=== PATIENT | male | born 1970 | race Hispanic/Latino ===

== ENCOUNTER 2016-11-10 22:10 | Inpatient (IN) | payer SELFPAY ==
[2016-11-10 22:45] VITALS: BMI 35.0
[2016-11-10] MEDS ORDERED: Vancomycin 1gm in NS 250ml 1 GM/250 ML BAG IVPB STA (23:50)
[2016-11-10] MEDS ORDERED: Piperacillin/Tazobact 3.375 gm 100 ML IVPB STA (23:50)
--- NOTE | 2016-11-10 23:51 | ED PDOC ---
Arrival/HPI - General Chief Complaint: Lower Extremity Problem/Injury Time Seen by Provider: 11/10/16 22:15 Historian: Patient - History of Present Illness Narrative History of Present Illness (Text): 11/10/16 23:46 Samuel Hu is a 46 year old male, with a history of diabetes, presents to the emergency department complaining of unhealed open wound to plantar aspect of left foot for past 3 months. Was evaluated at [facility] couple months prior for a blister, which developed into this wound. Patient was evaluated by PMD, , who advised the patient to present to emergency department for further evaluation. Denies any fever, chills, chest pain, shortness of breath, nausea, vomiting, diarrhea, or any other complaints at this time. Time/Duration: > month (3 months ) Symptom Onset: Gradual Symptom Course: Worsening Severity Level: Mild Activities at Onset: Light Past Medical History - Provider Review Nursing Documentation Reviewed: Yes - Infectious Disease Hx of Infectious Diseases: None - Tetanus Immunization Tetanus Immunization: Unknown - Cardiac Hx Cardiac Disorders: Yes Hx Hypertension: No - Pulmonary Hx Respiratory Disorders: No - Neurological Hx Neurological Disorder: No - HEENT Hx HEENT Disorder: No - Renal Hx Renal Disorder: No - Endocrine/Metabolic Hx Diabetes Mellitus Type 2: Yes (treated) - Hematological/Oncological Hx Blood Transfusions: No Hx Blood Transfusion Reaction: No - Integumentary Hx Dermatological Disorder: No - Musculoskeletal/Rheumatological Hx Musculoskeletal Disorders: No Hx Falls: No - Gastrointestinal Hx Gastrointestinal Disorders: No - Genitourinary/Gynecological Hx Genitourinary Disorders: No - Psychiatric Hx Psychophysiologic Disorder: No Hx Depression: No Hx Emotional Abuse: No Hx Physical Abuse: No Hx Substance Use: No - Surgical History Other/Comment: left 5th toe amputation - Anesthesia Hx Anesthesia: No Hx Anesthesia Reactions: No Hx Malignant Hyperthermia: No - Suicidal Assessment Feels Threatened In Home Enviroment: No Family/Social History - Physician Review Nursing Documentation Reviewed: Yes Family/Social History: No Known Family HX Smoking Status: Heavy Smoker > 10 Cigarettes Daily Hx Alcohol Use: No Hx Substance Use: No Hx Substance Use Treatment: No Allergies/Home Meds Allergies/Adverse Reactions: Allergies No Known Allergies Allergy (Verified 07/15/16 07:01) Home Medications: Home Meds Medication Instructions Recorded Confirmed Carisoprodol [Soma] 350 mg PO QID PRN 07/15/16 11/11/16 MetFORMIN [glucoPHAGE] 1,000 mg PO DAILY 07/15/16 11/11/16 Oxycodone HCl [Oxycontin] 20 mg PO QID PRN 07/15/16 11/11/16 Review of Systems - Physician Review All systems were reviewed & negative as marked: Yes - Review of Systems Constitutional: Normal. absent: Fatigue, Fevers Cardiovascular: Normal. absent: Chest Pain, Edema Genitourinary Male: Normal Musculoskeletal: Other (wound to plantar aspect of left foot. ) Neurological: Normal. absent: Headache, Dizziness Psychiatric: Normal Physical Exam Vital Signs Reviewed: Yes Vital Signs Temp Pulse Resp BP Pulse Ox 11/11/16 02:10 92 H 18 146/80 99 11/11/16 00:10 88 18 148/88 11/10/16 22:45 98.2 F 78 18 152/84 H 99 Temperature: Afebrile Blood Pressure: Normal Pulse: Regular Respiratory Rate: Normal Appearance: Positive for: Well-Appearing, Non-Toxic, Comfortable Pain Distress: None Mental Status: Positive for: Alert and Oriented X 3 - Systems Exam Head: Present: Atraumatic, Normocephalic Pupils: Present: PERRL Conjunctiva: Present: Normal Respiratory/Chest: Present: Clear to Auscultation, Good Air Exchange. No: Respiratory Distress, Accessory Muscle Use Cardiovascular: Present: Regular Rate and Rhythm, Normal S1, S2. No: Murmurs Upper Extremity: Present: Normal Inspection, NORMAL PULSES. No: Cyanosis, Edema Lower Extremity: Present: NORMAL PULSES, Normal ROM, Neurovascularly Intact, Other (2cm wound to lateral plantar aspect of left foot. ). No: Edema, CALF TENDERNESS, Deformity, Temperature Abnormalties Neurological: Present: GCS=15, CN II-XII Intact, Speech Normal, Motor Func Grossly Intact, Normal Sensory Function Skin: Present: Warm, Dry, Normal Color. No: Rashes Psychiatric: Present: Alert, Oriented x 3, Normal Insight, Normal Concentration Medical Decision Making ED Course and Treatment: 11/11/16 01:00 Case discussed with , covering for , agrees with the plan to admit patient to med/surge for unhealed open wound and r/o osteomyelitis. Accepts patient under his service. - RAD Interpretation Radiology Orders: 11/10/16 23:49 FOOT LEFT 3 VIEWS ROUTINE [RAD] Stat - Medication Orders Current Medication Orders: Carisoprodol (Soma) 350 mg PO QID [facility] Last Admin: 11/14/16 17:59 Dose: 350 mg Furosemide (Lasix) 20 mg PO DAILY [facility] Last Admin: 11/14/16 13:25 Dose: 20 mg Heparin Sodium (Porcine) (Heparin) 5,000 units SC Q8 [facility] PRN Reason: Protocol Last Admin: 11/14/16 13:29 Dose: Hydrochlorothiazide (Microzide) 12.5 mg PO DAILY [facility] Last Admin: 11/14/16 09:51 Dose: 12.5 mg Vancomycin HCl (Vancomycin 1gm) 1 gm in 250 mls @ 167 mls/hr IVPB Q12H [facility] PRN Reason: Protocol Stop: 11/25/16 07:16 Last Admin: 11/14/16 18:17 Dose: 167 mls/hr Meropenem 1g/NS 100mL IVPB (Meropenem 1g/Ns 100ml Ivpb) 1 gm in 100 mls @ 100 mls/hr IVPB Q8 [facility] PRN Reason: Protocol Stop: 11/21/16 22:01 Last Admin: 11/14/16 13:25 Dose: 100 mls/hr Dextrose/Sodium Chloride (Dextrose 5%/0.45% Ns 1000 Ml) 1,000 mls @ 100 mls/hr IV .Q10H [facility] Insulin Human Lispro (Humalog Low) 0 units SC ACHS [facility] PRN Reason: Protocol Last Admin: 11/14/16 16:39 Dose: Not Given Non-Admin Reason: Blood Sugar Parameter Lisinopril (Zestril) 10 mg PO DAILY [facility] Last Admin: 11/14/16 09:52 Dose: Not Given Non-Admin Reason: BP Parameters Not Met Nicotine (Nicoderm Cq) 1 patch TD DAILY [facility] Last Admin: 11/14/16 09:51 Dose: Not Given Non-Admin Reason: Patient Refused Nystatin (Nystop Topical Powder) 0 gm TOP BID [facility] Last Admin: 11/14/16 17:59 Dose: 1 applic Oxycodone HCl (Oxycodone Immediate Release Tab) 20 mg PO QID [facility] Last Admin: 11/14/16 17:59 Dose: 20 mg Re-Assess: NAHID Pain Assessment Document 11/14/16 18:59 EP (Rec: 05/01/17 19:21 EP [id number]) Pain Reassessment Is this a pain reassessment? Yes Sleep Is patient sleeping during reassessment? No Presence of Pain Presence of Pain No Pantoprazole Sodium (Protonix Ec Tab) 40 mg PO ACB [facility] Last Admin: 11/14/16 08:21 Dose: 40 mg Discontinued Medications Carisoprodol (Soma) 350 mg PO QID PRN PRN Reason: Pain, moderate (4-7) Last Admin: 11/12/16 05:12 Dose: 350 mg Diphenhydramine HCl (Benadryl) 25 mg IVP STAT [facility] Stop: 11/11/16 03:29 Last Admin: 11/11/16 03:37 Dose: 25 mg Diphenhydramine HCl (Benadryl) Confirm Administered Dose 50 mg .ROUTE .STK-MED ONE Stop: 11/11/16 03:35 Last Admin: 11/11/16 03:37 Dose: Piperacillin Sod/Tazobactam Sod (Zosyn 3.375 In Ns 100ml) 100 mls @ 200 mls/hr IVPB STAT [facility] PRN Reason: Protocol Stop: 11/11/16 00:19 Last Admin: 11/11/16 00:34 Dose: 200 mls/hr Vancomycin HCl (Vancomycin 1gm) 1 gm in 250 mls @ 167 mls/hr IVPB STAT [facility] PRN Reason: Protocol Stop: 11/11/16 01:19 Last Admin: 11/11/16 01:00 Dose: 167 mls/hr Piperacillin Sod/Tazobactam Sod (Zosyn 3.375 In Ns 100ml) 100 mls @ 200 mls/hr IVPB Q6 [facility] PRN Reason: Protocol Last Admin: 11/11/16 12:26 Dose: 200 mls/hr Magnesium Sulfate/Dextrose (Magnesium Sulfate 1 Gm/100 Ml D5w) 1 gm in 100 mls @ 100 mls/hr IVPB ONCE ONE Stop: 11/11/16 11:04 Last Admin: 11/11/16 10:34 Dose: 100 mls/hr Oxycodone HCl (Oxycodone Immediate Release Tab) 20 mg PO QID PRN PRN Reason: Pain, Mild (1-3) Last Admin: 11/11/16 10:57 Dose: 20 mg Re-Assess: NAHID Pain Assessment Document 11/11/16 11:57 HD (Rec: 11/11/16 12:15 HD [id number]) Pain Reassessment Is this a pain reassessment? Yes Sleep Is patient sleeping during reassessment? No Presence of Pain Presence of Pain No - Scribe Statement The provider has reviewed the documentation as recorded by the Alicia Hernandez Provider Attestation: All medical record entries made by the Alicia were at my direction and personally dictated by me. I have reviewed the chart and agree that the record accurately reflects my personal performance of the history, physical exam, medical decision making, and the department course for this patient. I have also personally directed, reviewed, and agree with the discharge instructions and disposition. Disposition/Present on Arrival - Present on Arrival Any Indicators Present on Arrival: No History of DVT/PE: No History of Uncontrolled Diabetes: No Urinary Catheter: No History of Decub. Ulcer: No History Surgical Site Infection Following: None - Disposition Have Diagnosis and Disposition been Completed?: Yes Diagnosis: Diabetic infection of right foot, Foot ulcer due to secondary DM Disposition: HOSPITALIZED Disposition Time: 00:30 Patient Plan: Admission Condition: STABLE
[2016-11-11 00:41] LABS: ADD MANUAL DIFF? NO
[2016-11-11 00:43] LABS: BASO # 0.01 K/mm3 (0.0-2.0); BASO % 0.1 % (0.0-3.0); EOS # 0.2 (0.0-0.7); EOS % 1.9 % (1.5-5.0); GRAN # 5.76 (1.4-6.5); GRAN % 68.6 % (50.0-68.0); HEMATOCRIT 39.5 % (42.0-52.0); LYMPH # 1.5 (1.2-3.4); LYMPH % 18.2 % (22.0-35.0); MEAN CORPUSCULAR HEMOGLOBIN 28.7 pg (25.0-35.0); MEAN CORPUSCULAR HGB CONC 34.2 g/dl (31.0-37.0); MEAN PLATELET VOLUME 8.9 fl (7.0-11.0); MONO # 0.9 (0.1-0.6); MONO % 11.2 % (1.0-6.0); PLATELET COUNT 333 10^3/uL (120.0-450.0); RED CELL DISTRIBUTION WIDTH 13.3 % (11.5-14.5); WHITE BLOOD COUNT 8.4 10^3/ul (4.5-11.0)
[2016-11-11 00:51] LABS: ALKALINE PHOSPHATASE 73 U/L (38-133); ALT/SGPT 27 U/L (7-56); AST/SGOT 16 U/L (15-59); BILIRUBIN,TOTAL 0.4 mg/dL (0.2-1.3); BLOOD UREA NITROGEN 13 mg/dL (7-21); CALCIUM 9.4 mg/dL (8.4-10.5); CARBON DIOXIDE 29 mmol/L (21-33); CHLORIDE 96 mmol/L (98-107); GFR AFRICAN-AMERICAN > 60; GLUCOSE,RANDOM 191 mg/dL (70-110); POTASSIUM 4.4 mmol/L (3.6-5.0); SODIUM 135 mmol/L (132-148); TOTAL PROTEIN 7.7 g/dL (5.8-8.3)
[2016-11-11] MEDS ORDERED: DiphenhydrAMINE 50 mg/ml Inj IVP STA (03:28)
[2016-11-11] MEDS ORDERED: DiphenhydrAMINE 50 mg/ml Inj ONE (03:34)
--- NOTE | 2016-11-11 05:53 | CP.PCM.HP ---
History of Present Illness - History of Present Illness History of Present Illness: CC: "Left foot swelling and wound" HPI: Pt is a 46 y/o male with a PMHx of Diabetes Mellitus, diabetic foot ulcers , and chronic back pain who presents to the ED with complaints of left distal lower extremity swelling and left lateral foot ulcer. Pt reports that he was sent to the hospital by his primary medical doctor, Dr. Loera, from his office. Pt reports that the swelling in the leg has been getting progressively worse for the past week. He reports that he puts his feet up after work and usually the swelling goes down, but this time it did not resolve. Pt also reports that the foot ulcer has been draining. Pt denies fever, chills, chest pain, shortness of breath, nausea, and vomiting. PMHx: Diabetes Mellitus, diabetic foot ulcers, and chronic back pain Allergies: No previously known drug allergies - he reports that he developed a rash under his arm after he was given vancomycin and zosyn in the ED Home medications: Metformin 1000 mg po bid, oxycodone 20 mg po qid prn, soma 350 mg po qid prn Past Surgical Hx: ankle surgery, left 4th toe amputation, left hand surgery Social Hx: reports smoking 1 and a half pack of cigarettes/day, denies alcohol use, denies illegal drug use Family Hx: Diabetes Mellitus (mother and father) Present on Admission - Present on Admission Any Indicators Present on Admission: No Review of Systems - Constitutional Constitutional: absent: Chills, Fever - EENT Eyes: absent: Blurred Vision Ears: absent: Disequilibrium, Dizziness Nose/Mouth/Throat: absent: Epistaxis, Nasal Congestion - Cardiovascular Cardiovascular: Leg Edema. absent: Chest Pain, Dyspnea - Respiratory Respiratory: absent: Cough, Dyspnea - Gastrointestinal Gastrointestinal: absent: Abdominal Pain, Bloating, Cramping, Vomiting - Genitourinary Genitourinary: absent: Dysuria - Integumentary Integumentary: Swelling, Wounds - Neurological Neurological: absent: Dizziness, Numbness - Psychiatric Psychiatric: absent: Anxiety - Hematologic/Lymphatic Hematologic: absent: Easy Bleeding Past Patient History - Infectious Disease Hx of Infectious Diseases: None - Tetanus Immunizations Tetanus Immunization: Unknown - Past Medical History & Family History Past Medical History?: Yes - Past Social History Smoking Status: Heavy Smoker > 10 Cigarettes Daily - CARDIAC Hx Cardiac Disorders: Yes Hx Hypertension: No - PULMONARY Hx Respiratory Disorders: No - NEUROLOGICAL Hx Neurological Disorder: No - HEENT Hx HEENT Problems: No - RENAL Hx Chronic Kidney Disease: No - ENDOCRINE/METABOLIC Hx Endocrine Disorders: Yes Hx Diabetes Mellitus Type 2: Yes - HEMATOLOGICAL/ONCOLOGICAL Hx Blood Transfusions: No Hx Blood Transfusion Reaction: No - INTEGUMENTARY Hx Dermatological Problems: No - MUSCULOSKELETAL/RHEUMATOLOGICAL Hx Musculoskeletal Disorders: Yes Hx Arthritis: Yes Hx Falls: No Hx Fractures: Yes (R. hand.) - GASTROINTESTINAL Hx Gastrointestinal Disorders: No - GENITOURINARY/GYNECOLOGICAL Hx Genitourinary Disorders: No - PSYCHIATRIC Hx Substance Use: No - SURGICAL HISTORY Hx Surgeries: Yes Other/Comment: Right hand, and kleft ankle. - ANESTHESIA Hx Anesthesia: No Hx Anesthesia Reactions: No Hx Malignant Hyperthermia: No Meds Allergies/Adverse Reactions: Allergies Allergy/AdvReac Type Severity Reaction Status Date / Time No Known Allergies Allergy Verified 07/15/16 07:01 Physical Exam - Constitutional Appears: No Acute Distress - Head Exam Head Exam: ATRAUMATIC, NORMOCEPHALIC - Eye Exam Eye Exam: EOMI, PERRL - ENT Exam ENT Exam: Mucous Membranes Moist. absent: Mucous Membranes Dry - Neck Exam Neck exam: Positive for: Full Rom. Negative for: Lymphadenopathy - Respiratory Exam Respiratory Exam: Clear to Auscultation Bilateral - Cardiovascular Exam Cardiovascular Exam: +S1, +S2. absent: Rubs - GI/Abdominal Exam GI & Abdominal Exam: Normal Bowel Sounds, Soft. absent: Rigid, Tenderness - Extremities Exam Extremities exam: Positive for: pedal edema - Neurological Exam Neurological exam: Alert, Oriented x3 - Skin Skin Exam: Warm Additional comments: Left lateral foot wound, bloody Results - Vital Signs Recent Vital Signs: Last Vital Signs Temp 98.2 F 11/11/16 04:52 Pulse 81 11/11/16 04:52 Resp 20 11/11/16 04:52 BP 142/92 H 11/11/16 04:52 Pulse Ox 99 11/11/16 02:10 - Labs Result Diagrams: 11/11/16 00:26 11/11/16 00:26 Labs: Laboratory Results - last 24 hr 11/11/16 11/11/16 00:26 00:26 WBC 8.4 RBC 4.70 Hgb 13.5 L Hct 39.5 L MCV 84.0 MCH 28.7 MCHC 34.2 RDW 13.3 Plt Count 333 MPV 8.9 Gran % 68.6 H Lymph % (Auto) 18.2 L [place] % (Auto) 11.2 H Eos % (Auto) 1.9 Baso % (Auto) 0.1 Gran # 5.76 Lymph # 1.5 [place] # 0.9 H Eos # 0.2 Baso # 0.01 Sodium 135 Potassium 4.4 Chloride 96 L Carbon Dioxide 29 Anion Gap 14 BUN 13 Creatinine 0.8 Est GFR ( Amer) > 60 Est GFR (Non-Af Amer) > 60 Random Glucose 191 H Calcium 9.4 Total Bilirubin 0.4 AST 16 ALT 27 Alkaline Phosphatase 73 Total Protein 7.7 Albumin 3.8 Globulin 3.9 Albumin/Globulin Ratio 1.0 L Assessment & Plan - Assessment and Plan (Free Text) Assessment: Left leg diabetic foot ulcer/cellulitis: Afebrile, nontachycardic 1 dose vancomycin, zosyn given in ED Infectious Disease, Dr. Paul, consulted. Help appreciated. Podiatry, Dr. Mackay, consulted. Help appreciated. Left foot x-ray pending blood cultures, wound cultures pending Diabetes Mellitus: Random Glucose - 191 Regular insulin sliding scale Metformin held Prophylactic Measures: DVT: Heparin 5000 units sc q8h, SCDs held due to left lower leg edema GI: Protonix 40 mg po qd
[2016-11-11] MEDS: oxyCODONE 20 mg Immediate Release Tab PO PRN ×2 (05:55→10:57)
[2016-11-11] MEDS ORDERED: Insulin Reg-HIGH-Coverage SC SCH (07:30)
[2016-11-11] MEDS: Insulin Lispro (humaLOG) LOW Coverage SC SCH ×4 (07:57→23:03)
[2016-11-11 08:04] LABS: ADD MANUAL DIFF? NO
[2016-11-11 08:07] LABS: BASO # 0.01 K/mm3 (0.0-2.0); BASO % 0.1 % (0.0-3.0); EOS # 0.1 (0.0-0.7); EOS % 1.3 % (1.5-5.0); GRAN % 79.9 % (50.0-68.0); HEMATOCRIT 40.2 % (42.0-52.0); LYMPH # 0.9 (1.2-3.4); LYMPH % 9.5 % (22.0-35.0); MEAN CELL VOLUME 84.3 fL (80.0-105.0); MEAN CORPUSCULAR HEMOGLOBIN 27.9 pg (25.0-35.0); MEAN CORPUSCULAR HGB CONC 33.1 g/dl (31.0-37.0); MEAN PLATELET VOLUME 8.8 fl (7.0-11.0); MONO # 0.8 (0.1-0.6); MONO % 9.2 % (1.0-6.0); PLATELET COUNT 317 10^3/uL (120.0-450.0); RED CELL DISTRIBUTION WIDTH 13.3 % (11.5-14.5); WHITE BLOOD COUNT 9.1 10^3/ul (4.5-11.0)
[2016-11-11 08:16] LABS: ALB/GLOB RATIO 1.1 (1.1-1.8); ALKALINE PHOSPHATASE 73 U/L (38-133); ALT/SGPT 27 U/L (7-56); AST/SGOT 18 U/L (15-59); BILIRUBIN,TOTAL 0.4 mg/dL (0.2-1.3); BLOOD UREA NITROGEN 12 mg/dL (7-21); CALCIUM 9.5 mg/dL (8.4-10.5); CARBON DIOXIDE 31 mmol/L (21-33); CHLORIDE 97 mmol/L (95-110); GFR AFRICAN-AMERICAN > 60; GLUCOSE,RANDOM 119 mg/dL (70-110); MAGNESIUM 1.6 mg/dL (1.7-2.2); PHOSPHOROUS 4.1 mg/dL (2.5-4.5); POTASSIUM 4.5 mmol/L (3.6-5.0); SODIUM 137 mmol/L (132-148); TOTAL PROTEIN 8.1 g/dL (5.8-8.3)
[2016-11-11] MEDS: Pantoprazole 40 mg EC Tab PO SCH (08:25)
[2016-11-11] MEDS: Vancomycin 1gm in NS 250ml 1 GM/250 ML BAG IVPB SCH ×2 (08:25→20:58)
[2016-11-11] MEDS ORDERED: Vancomycin 1gm in NS 250ml 1 GM/250 ML BAG IVPB SCH (10:00)
[2016-11-11] MEDS ORDERED: Magnesium Sulfate 1 gm in D5W 1 GM/100 ML BAG IVPB ONE (10:05)
--- NOTE | 2016-11-11 10:13 | RAD ---
PROCEDURE: Left Foot Radiographs. HISTORY: wound COMPARISON: 02/19/2016 FINDINGS: BONES: Bony destruction is seen in the head of the 5th metatarsal which is a new finding and consistent with osteomyelitis. JOINTS: Normal. SOFT TISSUES: Normal. OTHER FINDINGS: None. IMPRESSION: Bony destruction is seen in the head of the 5th metatarsal which is a new finding and consistent with osteomyelitis.
[2016-11-11] MEDS ORDERED: Piperacillin/Tazobact 3.375 gm 100 ML IVPB SCH ×2 (12:00)
--- NOTE | 2016-11-11 12:05 | CP.PCM.CON ---
<JohannaCadence - Last Filed: 11/11/16 12:01> History of Present Illness - History of Present Illness History of Present Illness: 46 y/o male with a PMHx of Diabetes Mellitus, diabetic foot ulcers, and chronic back pain seen at bedside with attending Dr. Jordan for left foot ulceration. Patient was sent by his PCP after there was noted to be swelling and drainage from his left foot. Patient denies any pain to his foot. He denies any n/f/v/c/d /sob Review of Systems - Constitutional Constitutional: As Per HPI Past Patient History - Infectious Disease Hx of Infectious Diseases: None - Tetanus Immunizations Tetanus Immunization: Unknown - Past Medical History & Family History Past Medical History?: Yes - Past Social History Smoking Status: Heavy Smoker > 10 Cigarettes Daily - CARDIAC Hx Cardiac Disorders: Yes Hx Hypertension: No - PULMONARY Hx Respiratory Disorders: No - NEUROLOGICAL Hx Neurological Disorder: No - HEENT Hx HEENT Problems: No - RENAL Hx Chronic Kidney Disease: No - ENDOCRINE/METABOLIC Hx Endocrine Disorders: Yes Hx Diabetes Mellitus Type 2: Yes - HEMATOLOGICAL/ONCOLOGICAL Hx Blood Transfusions: No Hx Blood Transfusion Reaction: No - INTEGUMENTARY Hx Dermatological Problems: No - MUSCULOSKELETAL/RHEUMATOLOGICAL Hx Musculoskeletal Disorders: Yes Hx Arthritis: Yes Hx Falls: No Hx Fractures: Yes (R. hand.) - GASTROINTESTINAL Hx Gastrointestinal Disorders: No - GENITOURINARY/GYNECOLOGICAL Hx Genitourinary Disorders: No - PSYCHIATRIC Hx Substance Use: No - SURGICAL HISTORY Hx Surgeries: Yes Other/Comment: Right hand, and kleft ankle. - ANESTHESIA Hx Anesthesia: No Hx Anesthesia Reactions: No Hx Malignant Hyperthermia: No Meds Allergies/Adverse Reactions: Allergies Allergy/AdvReac Type Severity Reaction Status Date / Time No Known Allergies Allergy Verified 07/15/16 07:01 - Medications Medications: Current Medications Carisoprodol (Soma) 350 mg PO QID PRN PRN Reason: Pain, moderate (4-7) Heparin Sodium (Porcine) (Heparin) 5,000 units SC Q8 [facility] PRN Reason: Protocol Vancomycin HCl (Vancomycin 1gm) 1 gm in 250 mls @ 167 mls/hr IVPB Q12H [facility] PRN Reason: Protocol Stop: 11/25/16 07:16 Last Admin: 11/11/16 08:25 Dose: 167 mls/hr Piperacillin Sod/Tazobactam Sod (Zosyn 3.375 In Ns 100ml) 100 mls @ 200 mls/hr IVPB Q6 [facility] PRN Reason: Protocol Insulin Human Lispro (Humalog Low) 0 units SC ACHS [facility] PRN Reason: Protocol Last Admin: 11/11/16 07:57 Dose: Not Given Nicotine (Nicoderm Cq) 1 patch TD DAILY [facility] Last Admin: 11/11/16 10:54 Dose: 1 patch Oxycodone HCl (Oxycodone Immediate Release Tab) 20 mg PO QID PRN PRN Reason: Pain, Mild (1-3) Last Admin: 11/11/16 10:57 Dose: 20 mg Pantoprazole Sodium (Protonix Ec Tab) 40 mg PO ACB [facility] Last Admin: 11/11/16 08:25 Dose: 40 mg Physical Exam - Constitutional Appears: Well, Non-toxic, No Acute Distress - Extremities Exam Additional comments: Vasc: nonpalpable pedal pulses, TG warm to warm, CFT < 3 sec to all digits, +1 pitting edema neuro: grossly diminished derm: +1 pitting edema, mild erythema, open ulceration sub metatarsal 5 of left foot measuring 1.5cm x 2 cm x 0.5cm with mixed fibrogranular base and fibrotic border, moderate serous drainage, no purulence, no probe to bone, mild malodor, no underlying abscess, no ascending cellulitis ortho: no pain on palpation of sub met 5 - Neurological Exam Neurological exam: Alert, Oriented x3 - Psychiatric Exam Psychiatric exam: Normal Affect, Normal Mood Results - Vital Signs Recent Vital Signs: Last Vital Signs Temp 98.2 F 11/11/16 08:00 Pulse 81 11/11/16 08:00 Resp 20 11/11/16 08:00 BP 149/92 H 11/11/16 08:00 Pulse Ox 96 11/11/16 08:00 - Labs Result Diagrams: 11/11/16 07:45 11/11/16 07:45 Labs: Laboratory Results - last 24 hr 11/11/16 11/11/16 11/11/16 00:26 00:26 07:45 WBC 8.4 9.1 RBC 4.70 4.77 Hgb 13.5 L 13.3 L Hct 39.5 L 40.2 L MCV 84.0 84.3 MCH 28.7 27.9 MCHC 34.2 33.1 RDW 13.3 13.3 Plt Count 333 317 MPV 8.9 8.8 Gran % 68.6 H 79.9 H Lymph % (Auto) 18.2 L 9.5 L Glynn % (Auto) 11.2 H 9.2 H Eos % (Auto) 1.9 1.3 L Baso % (Auto) 0.1 0.1 Gran # 5.76 7.30 H Lymph # 1.5 0.9 L Glynn # 0.9 H 0.8 H Eos # 0.2 0.1 Baso # 0.01 0.01 APTT Sodium 135 Potassium 4.4 Chloride 96 L Carbon Dioxide 29 Anion Gap 14 BUN 13 Creatinine 0.8 Est GFR ( Amer) > 60 Est GFR (Non-Af Amer) > 60 Random Glucose 191 H Calcium 9.4 Phosphorus Magnesium Total Bilirubin 0.4 AST 16 ALT 27 Alkaline Phosphatase 73 Total Protein 7.7 Albumin 3.8 Globulin 3.9 Albumin/Globulin Ratio 1.0 L 11/11/16 11/11/16 07:45 07:45 WBC RBC Hgb Hct MCV MCH MCHC RDW Plt Count MPV Gran % Lymph % (Auto) Glynn % (Auto) Eos % (Auto) Baso % (Auto) Gran # Lymph # Glynn # Eos # Baso # APTT 31.3 H Sodium 137 Potassium 4.5 Chloride 97 Carbon Dioxide 31 Anion Gap 14 BUN 12 Creatinine 0.8 Est GFR ( Amer) > 60 Est GFR (Non-Af Amer) > 60 Random Glucose 119 H Calcium 9.5 Phosphorus 4.1 Magnesium 1.6 L Total Bilirubin 0.4 AST 18 ALT 27 Alkaline Phosphatase 73 Total Protein 8.1 Albumin 4.1 Globulin 3.9 Albumin/Globulin Ratio 1.1 Assessment & Plan - Assessment and Plan (Free Text) Assessment: 46 y/o male seen at bedside for left foot plantar ulceration secondary to diabetes Plan: patient evaluated and chart reviewed seen at bedside with attending Dr. Jordan labs and vitals reviewed; afebrile, WBC 9.1 X ray of left foot shows bony destruction of 5th metatarsal consistent with OM MRI of left foot ordered continue IV abx as per ID vascular consult placed wound cx obtained applied ALYCE ferguson to left foot podiatry will continue to monitor while patient remains in house <Ulices Jordan - Last Filed: 11/11/16 15:24> Meds - Medications Medications: Current Medications Carisoprodol (Soma) 350 mg PO QID PRN PRN Reason: Pain, moderate (4-7) Heparin Sodium (Porcine) (Heparin) 5,000 units SC Q8 [facility] PRN Reason: Protocol Last Admin: 11/11/16 13:33 Dose: Not Given Vancomycin HCl (Vancomycin 1gm) 1 gm in 250 mls @ 167 mls/hr IVPB Q12H [facility] PRN Reason: Protocol Stop: 11/25/16 07:16 Last Admin: 11/11/16 08:25 Dose: 167 mls/hr Meropenem 1g/NS 100mL IVPB (Meropenem 1g/Ns 100ml Ivpb) 1 gm in 100 mls @ 100 mls/hr IVPB Q8 [facility] PRN Reason: Protocol Stop: 11/21/16 22:01 Insulin Human Lispro (Humalog Low) 0 units SC ACHS [facility] PRN Reason: Protocol Last Admin: 11/11/16 12:14 Dose: Not Given Nicotine (Nicoderm Cq) 1 patch TD DAILY [facility] Last Admin: 11/11/16 10:54 Dose: 1 patch Oxycodone HCl (Oxycodone Immediate Release Tab) 20 mg PO QID PRN PRN Reason: Pain, Mild (1-3) Last Admin: 11/11/16 10:57 Dose: 20 mg Pantoprazole Sodium (Protonix Ec Tab) 40 mg PO ACB [facility] Last Admin: 11/11/16 08:25 Dose: 40 mg Results - Vital Signs Recent Vital Signs: Last Vital Signs Temp 98.2 F 11/11/16 08:00 Pulse 81 11/11/16 08:00 Resp 20 11/11/16 08:00 BP 149/92 H 11/11/16 08:00 Pulse Ox 96 11/11/16 08:00 - Labs Result Diagrams: 11/11/16 07:45 11/11/16 07:45 Labs: Laboratory Results - last 24 hr 11/11/16 11/11/16 11/11/16 00:26 00:26 07:45 WBC 8.4 9.1 RBC 4.70 4.77 Hgb 13.5 L 13.3 L Hct 39.5 L 40.2 L MCV 84.0 84.3 MCH 28.7 27.9 MCHC 34.2 33.1 RDW 13.3 13.3 Plt Count 333 317 MPV 8.9 8.8 Gran % 68.6 H 79.9 H Lymph % (Auto) 18.2 L 9.5 L [place] % (Auto) 11.2 H 9.2 H Eos % (Auto) 1.9 1.3 L Baso % (Auto) 0.1 0.1 Gran # 5.76 7.30 H Lymph # 1.5 0.9 L Glynn # 0.9 H 0.8 H Eos # 0.2 0.1 Baso # 0.01 0.01 ESR APTT Sodium 135 Potassium 4.4 Chloride 96 L Carbon Dioxide 29 Anion Gap 14 BUN 13 Creatinine 0.8 Est GFR ( Amer) > 60 Est GFR (Non-Af Amer) > 60 Random Glucose 191 H Calcium 9.4 Phosphorus Magnesium Total Bilirubin 0.4 AST 16 ALT 27 Alkaline Phosphatase 73 Total Protein 7.7 Albumin 3.8 Globulin 3.9 Albumin/Globulin Ratio 1.0 L HIV 1&2 Antibody Screen 11/11/16 11/11/16 11/11/16 07:45 07:45 07:45 WBC RBC Hgb Hct MCV MCH MCHC RDW Plt Count MPV Gran % Lymph % (Auto) Glynn % (Auto) Eos % (Auto) Baso % (Auto) Gran # Lymph # Glynn # Eos # Baso # ESR APTT 31.3 H Sodium 137 Potassium 4.5 Chloride 97 Carbon Dioxide 31 Anion Gap 14 BUN 12 Creatinine 0.8 Est GFR ( Amer) > 60 Est GFR (Non-Af Amer) > 60 Random Glucose 119 H Calcium 9.5 Phosphorus 4.1 Magnesium 1.6 L Total Bilirubin 0.4 AST 18 ALT 27 Alkaline Phosphatase 73 Total Protein 8.1 Albumin 4.1 Globulin 3.9 Albumin/Globulin Ratio 1.1 HIV 1&2 Antibody Screen Negative 11/11/16 12:30 WBC RBC Hgb Hct MCV MCH MCHC RDW Plt Count MPV Gran % Lymph % (Auto) Glynn % (Auto) Eos % (Auto) Baso % (Auto) Gran # Lymph # Glynn # Eos # Baso # ESR 11 APTT Sodium Potassium Chloride Carbon Dioxide Anion Gap BUN Creatinine Est GFR ( Amer) Est GFR (Non-Af Amer) Random Glucose Calcium Phosphorus Magnesium Total Bilirubin AST ALT Alkaline Phosphatase Total Protein Albumin Globulin Albumin/Globulin Ratio HIV 1&2 Antibody Screen Attending/Attestation - Attestation I have personally seen and examined this patient.: Yes I have fully participated in the care of the patient.: Yes I have reviewed all pertinent clinical information: Yes
--- NOTE | 2016-11-11 15:28 | CON ---
DATE: 11/11/2016 The patient was seen earlier this morning in room 566, bed 1. CHIEF COMPLAINT: A foot infection times several days. HISTORY OF PRESENT ILLNESS: This is a 46-year-old male who has obesity, diabetes mellitus, hypertens ion, history of group B Strep infection and a history of left ankle surgery, right wrist surgery, who was admitted through the Emergency Room with a diagnosis of diabetic foot wound. The patient had po diatric surgery also in 07/2015. Now returns on 11/10, yesterday, to the Emergency Room complaining of a foot infection. Denies any fevers, any chills. No nausea or vomiting and no chest pain. He was given an antibiotic and he states he developed a rash under his left armpit, axilla and the left groi n that was not present upon admission according to the patient. The Emergency Room chart states that the patient is admitted with left foot infection for 3 months. PAST MEDICAL HISTORY: Significant for obesity, diabetes, hypertension, group B Strep infection. PAST SURGICAL HISTORY: Significant for right wrist surgery, left ankle surgery. ALLERGIES: The patient, in the past, has no allergies. PHYSICAL EXAMINATION: GENERAL: He is in bed, in no acute distress. VITAL SIGNS: Temperature of 98, heart rate of 92, respiratory rate of 20, blood pressure is 140/80. HEENT: Unremarkable. NECK: Supple. LUNGS: Have decreased breath sounds. HEART: Normal S1, S2. ABDOMEN: Soft, nontender. EXTREMITIES: Examination of the foot reveals erythema and edema and there are 2 large ulcers on the base of his foot. LABORATORY EXAMINATION: Reveals a white count of 9.1, sed rate of 11. Coagulation is noted. Chemis tries reveals the BUN of 13, creatinine of 0.8. His HIV is reported to be negative. Review of orders reveals the patient to be on vancomycin. ASSESSMENT AND PLAN: A 46-year-old who is diabetic who has obesity with body mass index of 35, hyper tensive, history of group B Strep. Now presenting with a left foot cellulitis, must rule out underly ing osteomyelitis and must rule out underlying peripheral vascular disease. Recommend arterial studi es, recommend MRI, sed rate, C-reactive protein and will treat the patient with vancomycin and merope nem. He has a questionable rash with the beta-lactam. He does have a rash in his groin and his axil la and in an isolated, entity of fixed drug reaction may be possible. Will follow closely with you. Vancomycin and meropenem, cultures, podiatry, vascular, MRI, arterial studies. Holland Paul MD cc: [id number] TT: 11/11/2016 15:27:50 Confirmation # [id number] Dictation # [id number] en
--- NOTE | 2016-11-11 18:26 | MRI ---
PROCEDURE: MRI Left Foot HISTORY: Pain. Evaluate for osteomyelitis. COMPARISON: Comparison is made to the previous x-ray of the left foot dated 11/11/2016 previous MRI of the left foot dated 07/29/2015 and 02/19/2016 TECHNIQUE: Multiecho multiplanar sequences were performed through the left foot without the use of intravenous contrast. FINDINGS: BONES: The patient is status post amputation of the 4th toe. There is focal bony destruction at the distal 5th metatarsal bone and distal head of the 5th metatarsal associated with abnormal hyperintense bone marrow signal consistent with osteomyelitis. There is also hyperintense bone marrow signal and small erosion at the base of the proximal phalanx of the 5th toe that also suspicious for osteomyelitis. Diffuse bone marrow edema and increased signal seen at the 5th metatarsal bone and in the distal phalanx of the 5th toe may represent bone marrow reaction. Otherwise no evidence of acute pathology or abnormal bone marrow signal. MUSCLES: Diffuse increased muscle signal at the mid and distal left foot more on the lateral aspect consistent with myositis. SOFT TISSUES: Diffuse soft tissue edema. Inflammatory changes also around the 5th metatarsal pharyngeal joint. LISFRANC LIGAMENT: No evidence of acute pathology. PLANTAR PLATE: There is destruction of the 4th and 5th plantar plates. EXTENSOR TENDONS: No evidence of acute pathology. FLEXOR TENDONS: No evidence of acute pathology. OTHER FINDINGS: None. IMPRESSION: Findings consistent with acute osteomyelitis at distal 5th metatarsal bone and at the base of the proximal phalanx of the 5th toe. Inflammatory changes in the soft tissue around the distal 5th metatarsal and in the 5th toe without evidence of drainable fluid collection. Diffuse soft tissue edema.
[2016-11-11] MEDS: Meropenem 1g/NS 100mL IVPB 1 GM/100 ML PIGGYBACK IVPB SCH (22:54)
--- NOTE | 2016-11-11 23:08 | CON ---
DATE: 11/11/2016 CHIEF COMPLAINT/HISTORY OF PRESENT ILLNESS: This is a noncompliant 46-year-old male with a history of diabetes who is currently smoking. He presents with a progressive neuropathic ulcer involving the left fifth MTP joint. Bone destruction is noted on plain films and there is evidence for osteomyelitis by MRI. The patient has had a previous left toe amputation. He is neuropathic and denies any pain. He denies fevers, sweats or chills. PAST MEDICAL HISTORY: Diabetes, chronic back pain, left fourth toe amputation, previous right hand and right ankle surgery. PHYSICAL EXAMINATION: His posterior tibial pulses are strong bilaterally. His dorsalis pedis pulses are difficult to palpate. PLAN: An JOSE/PVR exam will be ordered. I do not believe revascularization will be necessary given the strong distal pulses. The patient was counseled concerning his overall medical condition with diabetes, smoking and noncompliance. Maxi Lang MD cc: [id number] TT: 11/11/2016 23:08:09 Confirmation # [id number] Dictation # [id number] gurpreet JAVIER
[2016-11-12] MEDS: Meropenem 1g/NS 100mL IVPB 1 GM/100 ML PIGGYBACK IVPB SCH ×3 (05:11→22:33)
[2016-11-12 07:26] LABS: ADD MANUAL DIFF? NO
[2016-11-12 07:30] LABS: BASO # 0.01 K/mm3 (0.0-2.0); BASO % 0.2 % (0.0-3.0); EOS # 0.1 (0.0-0.7); EOS % 1.3 % (1.5-5.0); GRAN # 4.47 (1.4-6.5); GRAN % 71.2 % (50.0-68.0); LYMPH # 1.1 (1.2-3.4); LYMPH % 17.4 % (22.0-35.0); MEAN CELL VOLUME 83.3 fL (80.0-105.0); MEAN CORPUSCULAR HEMOGLOBIN 27.8 pg (25.0-35.0); MEAN CORPUSCULAR HGB CONC 33.4 g/dl (31.0-37.0); MEAN PLATELET VOLUME 8.9 fl (7.0-11.0); MONO # 0.6 (0.1-0.6); MONO % 9.9 % (1.0-6.0); PLATELET COUNT 288 10^3/uL (120.0-450.0); RED CELL DISTRIBUTION WIDTH 13.3 % (11.5-14.5); WHITE BLOOD COUNT 6.3 10^3/ul (4.5-11.0)
[2016-11-12 07:43] LABS: ALKALINE PHOSPHATASE 76 U/L (38-133); ALT/SGPT 24 U/L (7-56); AST/SGOT 26 U/L (15-59); BILIRUBIN,TOTAL 0.4 mg/dL (0.2-1.3); BLOOD UREA NITROGEN 11 mg/dL (7-21); CALCIUM 9.1 mg/dL (8.4-10.5); CARBON DIOXIDE 27 mmol/L (21-33); CHLORIDE 99 mmol/L (95-110); GFR AFRICAN-AMERICAN > 60; GLUCOSE,RANDOM 155 mg/dL (70-110); POTASSIUM 4.3 mmol/L (3.6-5.0); SODIUM 135 mmol/L (132-148); TOTAL PROTEIN 7.1 g/dL (5.8-8.3)
[2016-11-12] MEDS: Vancomycin 1gm in NS 250ml 1 GM/250 ML BAG IVPB SCH ×2 (08:00→21:45)
[2016-11-12] MEDS: Insulin Lispro (humaLOG) LOW Coverage SC SCH ×4 (08:30→22:00)
[2016-11-12] MEDS: Pantoprazole 40 mg EC Tab PO SCH (08:30)
--- NOTE | 2016-11-12 08:57 | CP.PCM.PN ---
<Hernando Monaco - Last Filed: 11/12/16 10:12> Subjective - Date & Time of Evaluation Date of Evaluation: 11/12/16 Time of Evaluation: 08:54 - Subjective Subjective: Medicine progress note - Hernando Jacinda PGY1 Patient seen and examined at bedside this morning. No acute overnight events or new complaints. He has been hypertensive during his hospital course and thus was started on lisinopril/hctz. He was seen this morning in conjunction with podiatry (Dr. Jordan). Discussed the results of his MRI which revealed osteomyelitis and his treatment options. Patient currently agreeable to surgery which has been tentatively set for Monday or Monday. Discussed with the patient the importance of smoking cessation, weight loss and glycemic control. Denies chest pain, palpitations, SOB. Objective - Vital Signs/Intake and Output Vital Signs (last 24 hours): Temp Pulse Resp BP Pulse Ox 98.8 F 88 20 165/91 H 92 L 11/11/16 16:05 11/11/16 16:05 11/11/16 16:05 11/11/16 16:05 11/11/16 16:05 Intake and Output: 11/12/16 11/12/16 06:59 18:59 Intake Total 360 Balance 360 - Medications Medications: Current Medications Carisoprodol (Soma) 350 mg PO QID PRN PRN Reason: Pain, moderate (4-7) Last Admin: 11/12/16 05:12 Dose: 350 mg Heparin Sodium (Porcine) (Heparin) 5,000 units SC Q8 JAI PRN Reason: Protocol Last Admin: 11/12/16 05:10 Dose: 5,000 units Hydrochlorothiazide (Microzide) 12.5 mg PO DAILY [facility]AI Vancomycin HCl (Vancomycin 1gm) 1 gm in 250 mls @ 167 mls/hr IVPB Q12H JAI PRN Reason: Protocol Stop: 11/25/16 07:16 Last Admin: 11/11/16 20:58 Dose: 167 mls/hr Meropenem 1g/NS 100mL IVPB (Meropenem 1g/Ns 100ml Ivpb) 1 gm in 100 mls @ 100 mls/hr IVPB Q8 JAI PRN Reason: Protocol Stop: 11/21/16 22:01 Last Admin: 11/12/16 05:11 Dose: 100 mls/hr Insulin Human Lispro (Humalog Low) 0 units SC ACHS JAI PRN Reason: Protocol Last Admin: 11/11/16 23:03 Dose: Not Given Lisinopril (Zestril) 10 mg PO DAILY [facility] Nicotine (Nicoderm Cq) 1 patch TD DAILY [facility] Last Admin: 11/11/16 10:54 Dose: 1 patch Oxycodone HCl (Oxycodone Immediate Release Tab) 20 mg PO QID PRN PRN Reason: Pain, Mild (1-3) Last Admin: 11/11/16 10:57 Dose: 20 mg Pantoprazole Sodium (Protonix Ec Tab) 40 mg PO ACB JAI Last Admin: 11/11/16 08:25 Dose: 40 mg - Labs Labs: 11/12/16 05:00 11/12/16 05:00 APTT 31.3 Seconds (23.7-30.8) H 11/11/16 07:45 - Constitutional Appears: No Acute Distress - Head Exam Head Exam: ATRAUMATIC, NORMAL INSPECTION, NORMOCEPHALIC - Eye Exam Eye Exam: EOMI, PERRL. absent: Scleral icterus - ENT Exam ENT Exam: Mucous Membranes Moist - Respiratory Exam Respiratory Exam: Clear to Ausculation Bilateral. absent: Rales, Rhonchi, Wheezes - Cardiovascular Exam Cardiovascular Exam: RRR, +S1, +S2. absent: Diastolic murmur, Gallop, Rubs, Murmur - GI/Abdominal Exam GI & Abdominal Exam: Soft, Normal Bowel Sounds. absent: Firm, Guarding, Rigid, Tenderness, Rebound - Neurological Exam Neurological Exam: Alert, Awake, Oriented x3 - Psychiatric Exam Psychiatric exam: Agitated - Skin Skin Exam: Dry, Intact, Normal Color, Warm Assessment and Plan - Assessment and Plan (Free Text) Plan: 46yo male with history of diabetes mellitus type 2, hypertension and osteomyelitis presents c/o left foot ulcer complicated by edema 1. Osteomyelitis -Left Foot x-ray revealed osteomyelitis of the distal 5th metatarsal ; see full report -MRI left foot consistent with osteomyelitis of the distal 5th metatarsal and at the base of the proximal phalanx of the 5th toe; see full report -Patient currently on vancomycin and meropenem per ID recommendations -Patient was evaluated this morning in conjunction with podiatry and results of his MRI were discussed with him. Treatment options, risk and benefit were discussed with him. Patient is agreeable to surgery and is tentatively scheduled for a left 5th metatarsal amputation for Monday/Monday. We are presently awaiting the results of the JOSE/PVR prior to proceeding with surgery. -JOSE/PVR pending -Blood cultures presently negative; Wound culture pending -ID consulted - Dr. Paul -Podiatry consulted - Dr. Jordan 2. Diabetes mellitus type 2 -Fingerstick ACHS -Consistent carb diet -Humalog ISS low dose 3. Hypertension -Patient was started on lisinopril/hctz 4. GI/DVT Prophylaxis -Protonix/Heparin Patient seen, examined and case reviewed/discussed with attending, Dr. Loera <Villa Loera - Last Filed: 11/18/16 09:25> Objective - Vital Signs/Intake and Output Vital Signs (last 24 hours): Temp Pulse Resp BP Pulse Ox 98.3 F 69 18 125/67 98 11/18/16 07:30 11/18/16 07:30 11/18/16 07:30 11/18/16 07:30 11/18/16 07:30 Intake and Output: 11/18/16 11/18/16 06:59 18:59 Intake Total 800 Balance 800 - Medications Medications: Current Medications Acetaminophen (Tylenol 325mg Tab) 650 mg PO Q6H PRN PRN Reason: Pain, Mild (1-3) Last Admin: 11/16/16 06:43 Dose: 650 mg Benzocaine (Orajel Pm Maximum Strength) 1 gm MT QID PRN PRN Reason: tooth pain Last Admin: 11/17/16 23:04 Dose: 1 unit Duloxetine HCl (Cymbalta) 40 mg PO DAILY [facility] Furosemide (Lasix) 20 mg PO DAILY [facility] Last Admin: 11/17/16 10:10 Dose: 20 mg Heparin Sodium (Porcine) (Heparin) 5,000 units SC Q8 JAI PRN Reason: Protocol Last Admin: 11/18/16 05:10 Dose: 5,000 units Hydrochlorothiazide (Microzide) 12.5 mg PO DAILY [facility] Last Admin: 11/17/16 10:11 Dose: 12.5 mg Vancomycin HCl (Vancomycin 1gm) 1 gm in 250 mls @ 167 mls/hr IVPB Q12H [facility]AI PRN Reason: Protocol Stop: 11/25/16 07:16 Last Admin: 11/18/16 06:16 Dose: 167 mls/hr Meropenem 1g/NS 100mL IVPB (Meropenem 1g/Ns 100ml Ivpb) 1 gm in 100 mls @ 100 mls/hr IVPB Q8 [facility]AI PRN Reason: Protocol Stop: 11/21/16 22:01 Last Admin: 11/18/16 05:10 Dose: 100 mls/hr Insulin Human Lispro (Humalog Low) 0 units SC ACHS JAI PRN Reason: Protocol Last Admin: 11/18/16 08:53 Dose: Not Given Lisinopril (Zestril) 10 mg PO DAILY [facility] Last Admin: 11/17/16 10:11 Dose: 10 mg Nicotine (Nicoderm Cq) 1 patch TD DAILY [facility] Last Admin: 11/17/16 10:15 Dose: Not Given Nystatin (Nystop Topical Powder) 0 gm TOP BID [facility] Last Admin: 11/17/16 18:06 Dose: 1 applic Oxycodone HCl (Oxycodone Immediate Release Tab) 20 mg PO QID [facility] Last Admin: 11/17/16 21:25 Dose: 20 mg Pantoprazole Sodium (Protonix Ec Tab) 40 mg PO ACB [facility] Last Admin: 11/18/16 08:53 Dose: Not Given - Labs Labs: 11/16/16 10:30 11/16/16 10:30 APTT 31.3 Seconds (23.7-30.8) H 11/11/16 07:45 Attending/Attestation - Attestation I have personally seen and examined this patient.: Yes I have fully participated in the care of the patient.: Yes I have reviewed all pertinent clinical information, including history, physical exam and plan: Yes Notes (Text): 11/18/16 09:25 Medical record note made by the resident after discussion with my direction and input after the patient was personally seen and examined by me. I have reviewed the chart and agree that the record accurately reflects by personal performance of the history, physical exam, data review, and medical decision-making, in the course for the patient. I have also personally directed the plan of care.
--- NOTE | 2016-11-12 09:22 | PN ---
DATE: 11/12/2016 SUBJECTIVE: A 46-year-old male seen at bedside for continued evaluation and management of a diabetic ulceration on his left foot with confirmed osteomyelitis of the left fifth metatarsal head and base of the proximal phalanx. VITAL SIGNS: Reveal a temperature of 98.8, pulse rate of 88, blood pressure 165/91, respiratory rate of 20. LABORATORY FINDINGS: Reveal a white count of 6.3, hemoglobin of 13.7, hematocrit of 41, platelet cou nt of 288. His ESR is elevated at 11. Microbiology report is pending; however, there are gram-negat konrad rods present. X-ray report shows bony destruction at the head of the fifth metatarsal, which was not present at prior x-ray. MRI report reveals findings that are consistent with acute osteomyeliti s of the fifth metatarsal head on the left foot as well as the proximal phalanx of the left fifth dig it. There are also inflammatory changes of the soft tissue in the fifth metatarsophalangeal joint re gion consistent with possible abscess formation. OBJECTIVE: EXTREMTIES: Palpable posterior tibial pulses bilaterally and nonpalpable dorsalis pedis pulse bilate rally. Left foot presents with edema and erythema of the entire forefoot, which is greater laterally than medially. There is a full thickness ulceration plantarly at the fifth metatarsophalangeal join t that shows serous drainage. The ulceration measures approximately 0.8 x 1.2 x 0.3 x 0.5 cm. Base of the ulcer is primarily fibrotic. There is no purulence noted at this point. Wound does probe to bone. ASSESSMENT: Diabetic plantar left foot ulceration with osteomyelitis of the fifth metatarsal head an d fifth proximal phalanx. PLAN: Dr. Paul's note was read and appreciated. Dr. Lang's note was read and appreciated. D iscussed at length with the patient his treatment options, which include 4-6 weeks of IV antibiotics or amputation of the distal fifth metatarsal and fifth toe. The patient states that he would rather have the toe amputated as opposed to undergoing 4-6 weeks of antibiotics and having the area breakdow n again in the future. Given the lack of palpable dorsalis pedis pulses, we will need an JOSE PVR exa m, which was ordered and is pending, before surgical intervention can be attempted. We will continue with IV antibiotics as per infectious disease. Dr. Paul's note and Dr. Lang's note was read and appreciated. The patient will be seen and followed daily with plans for left fifth ray amputatio n early next week. Ulices Jordan DPM cc: [phone] TT: 11/12/2016 09:22:10 Confirmation # [id number] Dictation # [id number] jn
[2016-11-12] MEDS: Nystatin 100,000 Units/gm Topical Pow(15 gm) TOP SCH ×2 (12:32→17:11)
[2016-11-12] MEDS: oxyCODONE 20 mg Immediate Release Tab PO SCH ×3 (13:42→22:31)
--- NOTE | 2016-11-12 20:27 | PN ---
DATE: 11/12/2016 The patient is in bed in no acute distress, nontoxic. PHYSICAL EXAMINATION: VITAL SIGNS: Temperature is 98, blood pressure is 140/80, respiratory rate of 20, heart rate of 81. HEENT: Unremarkable. NECK: Supple. LUNGS: Have decreased breath sounds. HEART: Normal S1, S2. ABDOMEN: Soft, nontender. LABORATORY DATA: Reveals a white count of 6.3, hemoglobin of 13. Chemistries reveal the BUN of 11, creatinine of 0.8. RPR is negative. HIV is negative. Microbiology reveals the blood cultures are n o growth, foot cultures are no growth. Anaerobic foot cultures are also no growth. Review of orders reveals the patient to be on vancomycin, and Zosyn was discontinued, rather now on v ancomycin and meropenem. Dr. Villagomez note is reviewed. Dr. Jordan's note is also reviewed. Dr. Maxi Lang's consultation is reviewed. The patient had MRI of the foot, which is consistent with o steomyelitis. ASSESSMENT AND PLAN: This is a 46-year-old male with diabetes and obesity and BMI of 35, hypertensio n, history of group B strep, presenting now with left foot cellulitis and osteomyelitis, currently on vancomycin and meropenem. Cultures are no growth so far. Waiting for possible podiatric interventi on and vascular intervention. We will follow closely with you. Arterial Dopplers are pending. Holland Paul MD cc: [phone] TT: 11/12/2016 20:26:32 Confirmation # [id number] Dictation # [id number] salvador
[2016-11-13] MEDS: Meropenem 1g/NS 100mL IVPB 1 GM/100 ML PIGGYBACK IVPB SCH ×3 (06:29→21:57)
[2016-11-13 06:48] LABS: ADD MANUAL DIFF? NO
[2016-11-13 07:09] LABS: ALB/GLOB RATIO 1.1 (1.1-1.8); ALKALINE PHOSPHATASE 68 U/L (38-133); ALT/SGPT 31 U/L (7-56); AST/SGOT 24 U/L (15-59); BILIRUBIN,TOTAL 0.5 mg/dL (0.2-1.3); BLOOD UREA NITROGEN 14 mg/dL (7-21); CALCIUM 9.5 mg/dL (8.4-10.5); CARBON DIOXIDE 32 mmol/L (21-33); CHLORIDE 92 mmol/L (98-107); GFR AFRICAN-AMERICAN > 60; GLUCOSE,RANDOM 117 mg/dL (70-110); POTASSIUM 4.5 mmol/L (3.6-5.0); SODIUM 134 mmol/L (132-148); TOTAL PROTEIN 7.6 g/dL (5.8-8.3)
[2016-11-13 07:11] LABS: BASO # 0.01 K/mm3 (0.0-2.0); BASO % 0.2 % (0.0-3.0); EOS # 0.2 (0.0-0.7); EOS % 2.5 % (1.5-5.0); GRAN # 2.98 (1.4-6.5); GRAN % 49.8 % (50.0-68.0); HEMATOCRIT 37.8 % (42.0-52.0); LYMPH # 1.9 (1.2-3.4); LYMPH % 31.4 % (22.0-35.0); MEAN CELL VOLUME 83.8 fL (80.0-105.0); MEAN CORPUSCULAR HEMOGLOBIN 27.5 pg (25.0-35.0); MEAN CORPUSCULAR HGB CONC 32.8 g/dl (31.0-37.0); MONO % 16.1 % (1.0-6.0); PLATELET COUNT 272 10^3/uL (120.0-450.0); RED CELL DISTRIBUTION WIDTH 13.2 % (11.5-14.5)
[2016-11-13] MEDS: Vancomycin 1gm in NS 250ml 1 GM/250 ML BAG IVPB SCH (08:16)
[2016-11-13] MEDS: Insulin Lispro (humaLOG) LOW Coverage SC SCH ×4 (08:22→23:00)
[2016-11-13] MEDS: Pantoprazole 40 mg EC Tab PO SCH (08:40)
[2016-11-13] MEDS: oxyCODONE 20 mg Immediate Release Tab PO SCH ×4 (10:48→22:07)
--- NOTE | 2016-11-13 11:18 | PN ---
DATE: 11/13/2016 The patient is a 46-year-old male seen and examined at bedside, status post treatment for osteomyelit is, as well as ulceration in the foot. The patient is tolerating IV antibiotics. He is very concern ed due to the fact that he is working and wants to know when he can go back to work. However, the pa adilia was told that he probably needs an amputation of the fifth toe. PHYSICAL EXAMINATION: VITAL SIGNS: Blood pressure currently is 120/74, pulse rate of 77. Temperature is 98.0. O2 saturat ion is 95 on room air. HEENT: Normocephalic, atraumatic. [place] conjunctivae, nonicteric sclerae. NECK: No JVD, no thyromegaly. CARDIOVASCULAR: Regular rate and rhythm. S1, S2 appreciated. No S3. No murmur noted. LUNGS: Bilateral air entry is positive. No wheeze or rhonchi. ABDOMEN: Nondistended, nontender. Positive bowel sounds. EXTREMITIES: Peripheral pulse is +2. There is an amputation on the foot, as well as an ulceration a nd erythema that is noted. LABORATORY DATA: WBCs of 6.0, hemoglobin of 12.4, hematocrit of 27.8, platelets of 272. Chemistry w ithin normal limits. LFTs also within normal limits with a CRP greater than 15. At this point, the cultures of the wound are still pending. MRI of the foot also is still pending. ASSESSMENT: 1. Osteomyelitis of the right foot. 2. Ulceration, as well as osteomyelitis of the left foot with diabetes mellitus. 3. Hypertension. PLAN: At this point, we will continue his IV antibiotics, as well as IV vancomycin. He is currently on meropenem. Noted the ID consult, and we will get the ultrasound, as well as the MRI, and we will follow up the results. Villa Loera MD cc: [id number] TT: 11/13/2016 11:18:37 Confirmation # [id number] Dictation # [id number] jn
[2016-11-13] MEDS: Nystatin 100,000 Units/gm Topical Pow(15 gm) TOP SCH ×2 (11:28→17:24)
--- NOTE | 2016-11-13 17:41 | PN ---
DATE: 11/13/2016 The patient is in bed, in no acute distress. PHYSICAL EXAMINATION: VITAL SIGNS: Temperature is 98, blood pressure is 120/70, respiratory rate of 18. HEENT: Unremarkable. NECK: Supple. LUNGS: Decreased breath sounds. HEART: Normal S1, S2. ABDOMEN: Soft. LABORATORY DATA: Reveals the patient to have a white count of 6, hemoglobin of 12 and platelets of 2 72. The chemistries are noted. The chemistries reveal a BUN of 14, creatinine of 1.0. C-reactive p rotein is 15. MRI is consistent with osteomyelitis. The x-ray reveals bony destruction. Case discu ssed with Dr. Villa Loera. ASSESSMENT AND PLAN: This is a 46-year-old with diabetes mellitus, obesity, body mass index of 35, h ypertension, history of group B Streptococcal, presenting with a left foot cellulitis and osteomyelit is. On vancomycin and meropenem. Thus far, microbiology reveals coagulase-negative Staphylococcus. Will follow closely with you. Holland Paul MD cc: [phone] TT: 11/13/2016 17:40:09 Confirmation # [id number] Dictation # [id number] mn
[2016-11-14] MEDS: Meropenem 1g/NS 100mL IVPB 1 GM/100 ML PIGGYBACK IVPB SCH ×3 (05:54→21:58)
[2016-11-14] MEDS: Vancomycin 1gm in NS 250ml 1 GM/250 ML BAG IVPB SCH ×4 (05:56→18:17)
[2016-11-14 06:46] LABS: ADD MANUAL DIFF? NO
[2016-11-14 07:07] LABS: BASO # 0.01 K/mm3 (0.0-2.0); BASO % 0.2 % (0.0-3.0); EOS # 0.1 (0.0-0.7); EOS % 1.4 % (1.5-5.0); GRAN # 3.12 (1.4-6.5); GRAN % 53.9 % (50.0-68.0); HEMATOCRIT 37.6 % (42.0-52.0); LYMPH # 1.7 (1.2-3.4); LYMPH % 29.1 % (22.0-35.0); MEAN CELL VOLUME 83.6 fL (80.0-105.0); MEAN CORPUSCULAR HGB CONC 33.5 g/dl (31.0-37.0); MEAN PLATELET VOLUME 8.9 fl (7.0-11.0); MONO # 0.9 (0.1-0.6); MONO % 15.4 % (1.0-6.0); PLATELET COUNT 277 10^3/uL (120.0-450.0); RED CELL DISTRIBUTION WIDTH 13.2 % (11.5-14.5); WHITE BLOOD COUNT 5.8 10^3/ul (4.5-11.0)
[2016-11-14 07:09] LABS: ALB/GLOB RATIO 1.1 (1.1-1.8); ALKALINE PHOSPHATASE 73 U/L (38-133); ALT/SGPT 29 U/L (7-56); AST/SGOT 23 U/L (15-59); BILIRUBIN,TOTAL 0.5 mg/dL (0.2-1.3); BLOOD UREA NITROGEN 15 mg/dL (7-21); CALCIUM 9.4 mg/dL (8.4-10.5); CARBON DIOXIDE 33 mmol/L (21-33); CHLORIDE 95 mmol/L (98-107); GFR AFRICAN-AMERICAN > 60; GLUCOSE,RANDOM 117 mg/dL (70-110); POTASSIUM 4.2 mmol/L (3.6-5.0); SODIUM 135 mmol/L (132-148)
[2016-11-14] MEDS: Insulin Lispro (humaLOG) LOW Coverage SC SCH ×4 (08:20→23:00)
[2016-11-14] MEDS: Pantoprazole 40 mg EC Tab PO SCH (08:21)
--- NOTE | 2016-11-14 08:24 | US ---
PROCEDURE: Lower extremity JOSE exam HISTORY: Peripheral vascular disease with pain and ulceration. Diabetes. Agee trophic ulcer. PHYSICIAN(S): Maxi Lang MD. FINDINGS: The resting JOSE's are normal: right, 1.22and left, 1.17. The brachial systolic pressures are symmetric. The high thigh pressures and waveforms are relatively normal. The calf PVR waveforms augment normally. No significant gradients are noted across the thighs. The ankle and metatarsal waveforms are relatively normal and symmetric. No significant pressure gradients are noted across the lower legs. IMPRESSION: 1. Normal JOSE and PVR examination at rest.
[2016-11-14] MEDS: oxyCODONE 20 mg Immediate Release Tab PO SCH ×4 (09:51→21:57)
[2016-11-14] MEDS: Nystatin 100,000 Units/gm Topical Pow(15 gm) TOP SCH ×2 (09:52→17:59)
--- NOTE | 2016-11-14 10:33 | CP.PCM.PN ---
<KevenbillHernando - Last Filed: 11/14/16 13:12> Subjective - Date & Time of Evaluation Date of Evaluation: 11/14/16 Time of Evaluation: 10:30 - Subjective Subjective: Medicine progress note - Hernando Jacinda PGY 1 Patient seen and examined at bedside this morning in conjuction with podiatry. No acute overnight events or new complaints. Patient currently is aware of plan for surgery on Monday at ~4pm with Dr. Jordan. Risks, benefits and alternatives were discussed with him previously and questions were answered. Denies chest pain, palpitations, SOB. Objective - Vital Signs/Intake and Output Vital Signs (last 24 hours): Temp Pulse Resp BP Pulse Ox 98.1 F 72 20 117/63 92 L 11/14/16 07:30 11/14/16 09:52 11/14/16 07:30 11/14/16 09:52 11/14/16 07:30 Intake and Output: 11/14/16 11/14/16 06:59 18:59 Intake Total 1740 Balance 1740 - Medications Medications: Current Medications Carisoprodol (Soma) 350 mg PO QID [facility] Last Admin: 11/14/16 09:51 Dose: 350 mg Heparin Sodium (Porcine) (Heparin) 5,000 units SC Q8 [facility] PRN Reason: Protocol Last Admin: 11/14/16 05:53 Dose: 5,000 units Hydrochlorothiazide (Microzide) 12.5 mg PO DAILY [facility] Last Admin: 11/14/16 09:51 Dose: 12.5 mg Vancomycin HCl (Vancomycin 1gm) 1 gm in 250 mls @ 167 mls/hr IVPB Q12H [facility] PRN Reason: Protocol Stop: 11/25/16 07:16 Last Admin: 11/14/16 08:19 Dose: Not Given Meropenem 1g/NS 100mL IVPB (Meropenem 1g/Ns 100ml Ivpb) 1 gm in 100 mls @ 100 mls/hr IVPB Q8 [facility] PRN Reason: Protocol Stop: 11/21/16 22:01 Last Admin: 11/14/16 05:54 Dose: 100 mls/hr Insulin Human Lispro (Humalog Low) 0 units SC ACHS [facility] PRN Reason: Protocol Last Admin: 11/14/16 08:20 Dose: Not Given Lisinopril (Zestril) 10 mg PO DAILY [facility] Last Admin: 11/14/16 09:52 Dose: Not Given Nicotine (Nicoderm Cq) 1 patch TD DAILY [facility] Last Admin: 11/14/16 09:51 Dose: 1 patch Nystatin (Nystop Topical Powder) 0 gm TOP BID [facility] Last Admin: 11/14/16 09:52 Dose: 1 applic Oxycodone HCl (Oxycodone Immediate Release Tab) 20 mg PO QID [facility] Last Admin: 11/14/16 09:51 Dose: 20 mg Pantoprazole Sodium (Protonix Ec Tab) 40 mg PO ACB [facility] Last Admin: 11/14/16 08:21 Dose: 40 mg - Labs Labs: 11/14/16 06:30 11/14/16 06:30 APTT 31.3 Seconds (23.7-30.8) H 11/11/16 07:45 - Constitutional Appears: Well, Non-toxic, No Acute Distress - Head Exam Head Exam: ATRAUMATIC, NORMAL INSPECTION, NORMOCEPHALIC - Eye Exam Eye Exam: EOMI, PERRL - ENT Exam ENT Exam: Mucous Membranes Moist - Respiratory Exam Respiratory Exam: Clear to Ausculation Bilateral. absent: Rales, Rhonchi, Wheezes - Cardiovascular Exam Cardiovascular Exam: RRR, +S1, +S2. absent: Tachycardia, Gallop, Rubs, Murmur - GI/Abdominal Exam GI & Abdominal Exam: Soft, Normal Bowel Sounds. absent: Distended, Firm, Guarding, Rigid, Tenderness, Rebound - Neurological Exam Neurological Exam: Alert, Awake, CN II-XII Intact, Oriented x3 - Psychiatric Exam Psychiatric exam: Anxious - Skin Skin Exam: Dry, Intact, Normal Color, Warm Assessment and Plan - Assessment and Plan (Free Text) Plan: 46yo male with history of diabetes mellitus type 2, hypertension and osteomyelitis presents c/o left foot ulcer complicated by edema 1. Osteomyelitis -Left Foot x-ray revealed osteomyelitis of the distal 5th metatarsal ; see full report -MRI left foot consistent with osteomyelitis of the distal 5th metatarsal and at the base of the proximal phalanx of the 5th toe; see full report -Patient currently on vancomycin and meropenem per ID recommendations -Patient was evaluated this morning in conjunction with podiatry (Dr. Mackay). Treatment options, risks and benefits were discussed with him. Patient is agreeable to surgery and is tentatively scheduled for a left 5th metatarsal amputation for Monday at approximately 4pm -JOSE/PVR reviewed and within normal limits -Wound culture positive for coagulase negative staph; Blood cultures negative -Patient to be medically optimized prior to surgery -ID consulted - Dr. Paul -Podiatry consulted - Dr. Jordan 2. Diabetes mellitus type 2 -Fingerstick ACHS -Consistent carb diet -Humalog ISS low dose 3. Hypertension -Continue with lisinopril/lasix 4. GI/DVT Prophylaxis -Protonix/Heparin Patient seen, examined and case reviewed/discussed with attending, Dr. Loera <Villa Loera - Last Filed: 11/18/16 08:55> Objective - Vital Signs/Intake and Output Vital Signs (last 24 hours): Temp Pulse Resp BP Pulse Ox 98.3 F 69 18 125/67 98 11/18/16 07:30 11/18/16 07:30 11/18/16 07:30 11/18/16 07:30 11/18/16 07:30 Intake and Output: 11/18/16 11/18/16 06:59 18:59 Intake Total 800 Balance 800 - Medications Medications: Current Medications Acetaminophen (Tylenol 325mg Tab) 650 mg PO Q6H PRN PRN Reason: Pain, Mild (1-3) Last Admin: 11/16/16 06:43 Dose: 650 mg Benzocaine (Orajel Pm Maximum Strength) 1 gm MT QID PRN PRN Reason: tooth pain Last Admin: 11/17/16 23:04 Dose: 1 unit Carisoprodol (Soma) 350 mg PO QID [facility] Last Admin: 11/17/16 21:25 Dose: 350 mg Duloxetine HCl (Cymbalta) 40 mg PO DAILY [facility] Furosemide (Lasix) 20 mg PO DAILY [facility] Last Admin: 11/17/16 10:10 Dose: 20 mg Heparin Sodium (Porcine) (Heparin) 5,000 units SC Q8 [facility] PRN Reason: Protocol Last Admin: 11/18/16 05:10 Dose: 5,000 units Hydrochlorothiazide (Microzide) 12.5 mg PO DAILY [facility] Last Admin: 11/17/16 10:11 Dose: 12.5 mg Vancomycin HCl (Vancomycin 1gm) 1 gm in 250 mls @ 167 mls/hr IVPB Q12H [facility] PRN Reason: Protocol Stop: 11/25/16 07:16 Last Admin: 11/18/16 06:16 Dose: 167 mls/hr Meropenem 1g/NS 100mL IVPB (Meropenem 1g/Ns 100ml Ivpb) 1 gm in 100 mls @ 100 mls/hr IVPB Q8 [facility] PRN Reason: Protocol Stop: 11/21/16 22:01 Last Admin: 11/18/16 05:10 Dose: 100 mls/hr Insulin Human Lispro (Humalog Low) 0 units SC ACHS [facility] PRN Reason: Protocol Last Admin: 11/18/16 08:53 Dose: Not Given Lisinopril (Zestril) 10 mg PO DAILY [facility] Last Admin: 11/17/16 10:11 Dose: 10 mg Nicotine (Nicoderm Cq) 1 patch TD DAILY [facility] Last Admin: 11/17/16 10:15 Dose: Not Given Nystatin (Nystop Topical Powder) 0 gm TOP BID [facility] Last Admin: 11/17/16 18:06 Dose: 1 applic Oxycodone HCl (Oxycodone Immediate Release Tab) 20 mg PO QID [facility] Last Admin: 11/17/16 21:25 Dose: 20 mg Pantoprazole Sodium (Protonix Ec Tab) 40 mg PO ACB [facility] Last Admin: 11/18/16 08:53 Dose: Not Given - Labs Labs: 11/16/16 10:30 11/16/16 10:30 APTT 31.3 Seconds (23.7-30.8) H 11/11/16 07:45 Attending/Attestation - Attestation I have personally seen and examined this patient.: Yes I have fully participated in the care of the patient.: Yes I have reviewed all pertinent clinical information, including history, physical exam and plan: Yes Notes (Text): 11/18/16 08:55 Medical record note made by the resident after discussion with my direction and input after the patient was personally seen and examined by me. I have reviewed the chart and agree that the record accurately reflects by personal performance of the history, physical exam, data review, and medical decision-making, in the course for the patient. I have also personally directed the plan of care.
--- NOTE | 2016-11-14 14:15 | CP.PCM.PN ---
<Beverley Gallegos - Last Filed: 11/14/16 14:12> Subjective - Date & Time of Evaluation Date of Evaluation: 11/14/16 Time of Evaluation: 14:12 - Subjective Subjective: 46 y/o male with a PMHx of Diabetes Mellitus, diabetic foot ulcers, and chronic back pain seen at bedside with attending Dr. Mackay regarding left foot ulceration. Patient denies any pain to his foot, but admits he was picking at his left foot this morning. He is aware that tomorrow he is to go to surgery for a left 5th ray amputation. He denies any n/f/v/c/d/sob Objective - Vital Signs/Intake and Output Vital Signs (last 24 hours): Temp Pulse Resp BP Pulse Ox 98.1 F 72 20 144/84 92 L 11/14/16 07:30 11/14/16 09:52 11/14/16 07:30 11/14/16 13:25 11/14/16 07:30 Intake and Output: 11/14/16 11/14/16 06:59 18:59 Intake Total 1740 Balance 1740 - Medications Medications: Current Medications Carisoprodol (Soma) 350 mg PO QID [facility] Last Admin: 11/14/16 13:24 Dose: 350 mg Furosemide (Lasix) 20 mg PO DAILY [facility] Last Admin: 11/14/16 13:25 Dose: 20 mg Heparin Sodium (Porcine) (Heparin) 5,000 units SC Q8 [facility] PRN Reason: Protocol Last Admin: 11/14/16 13:29 Dose: Not Given Hydrochlorothiazide (Microzide) 12.5 mg PO DAILY [facility] Last Admin: 11/14/16 09:51 Dose: 12.5 mg Vancomycin HCl (Vancomycin 1gm) 1 gm in 250 mls @ 167 mls/hr IVPB Q12H [facility] PRN Reason: Protocol Stop: 11/25/16 07:16 Last Admin: 11/14/16 08:19 Dose: Not Given Meropenem 1g/NS 100mL IVPB (Meropenem 1g/Ns 100ml Ivpb) 1 gm in 100 mls @ 100 mls/hr IVPB Q8 [facility] PRN Reason: Protocol Stop: 11/21/16 22:01 Last Admin: 11/14/16 13:25 Dose: 100 mls/hr Insulin Human Lispro (Humalog Low) 0 units SC ACHS [facility] PRN Reason: Protocol Last Admin: 11/14/16 11:39 Dose: Not Given Lisinopril (Zestril) 10 mg PO DAILY [facility] Last Admin: 11/14/16 09:52 Dose: Not Given Nicotine (Nicoderm Cq) 1 patch TD DAILY [facility] Last Admin: 11/14/16 09:51 Dose: 1 patch Nystatin (Nystop Topical Powder) 0 gm TOP BID [facility] Last Admin: 11/14/16 09:52 Dose: 1 applic Oxycodone HCl (Oxycodone Immediate Release Tab) 20 mg PO QID [facility] Last Admin: 11/14/16 13:54 Dose: 20 mg Pantoprazole Sodium (Protonix Ec Tab) 40 mg PO ACB [facility] Last Admin: 11/14/16 08:21 Dose: 40 mg - Labs Labs: 11/14/16 06:30 11/14/16 06:30 APTT 31.3 Seconds (23.7-30.8) H 11/11/16 07:45 - Constitutional Appears: Well, Non-toxic, No Acute Distress - Extremities Exam Additional comments: Left lower extremity focused exam: Vasc: Non-palpable DP pulse, PT pulse palpable 2/4, TG warm to warm, CFT < 3 sec to all digits, +1 pitting edema neuro: Gross sensation diminished derm: +1 pitting edema, mild erythema, open ulceration sub metatarsal 5 of left foot measuring approximately 1.5cm x 2 cm x 0.5cm that tracks dorsally 6 cm with mixed fibrogranular base and fibrotic border, moderate serous drainage, no purulence, no probe to bone, mild malodor, no ascending cellulitis ortho: no pain on palpation of sub met 5 - Neurological Exam Neurological Exam: Alert, Awake, Oriented x3 - Psychiatric Exam Psychiatric exam: Normal Affect, Normal Mood Assessment and Plan - Assessment and Plan (Free Text) Assessment: 46 year old male seen at bedside for left foot plantar ulceration secondary to diabetes Plan: patient examined and evaluated with attending, Dr. Mackay labs and vitals reviewed; afebrile, WBC 5.8 X ray of left foot shows bony destruction of 5th metatarsal consistent with OM MRI of left foot ordered continue IV abx as per ID JOSE/PVR reviewed and within normal limits wound cx-coagulase negative staph applied ABD, DSD to left foot Patient for left 5th ray resection tomorrow at 4pm with Dr. Julian Campos Held Patient to be NPO after breakfast tomorrow at 8am, tray ordered for 6:30 am Patient is optimized for surgery per primary team Psychiatric consulted placed for depression Podiatry will continue to monitor while patient remains in house <Mckenzie Mackay - Last Filed: 11/20/16 14:17> Objective - Vital Signs/Intake and Output Vital Signs (last 24 hours): Temp Pulse Resp BP Pulse Ox 98 F 67 18 117/69 97 11/20/16 08:11 11/20/16 09:53 11/20/16 08:11 11/20/16 09:53 11/20/16 08:11 Intake and Output: 11/20/16 11/20/16 06:59 18:59 Intake Total 1260 Balance 1260 - Medications Medications: Current Medications Acetaminophen (Tylenol 325mg Tab) 650 mg PO Q6H PRN PRN Reason: Pain, Mild (1-3) Last Admin: 11/16/16 06:43 Dose: 650 mg Benzocaine (Orajel Pm Maximum Strength) 1 gm MT QID PRN PRN Reason: tooth pain Last Admin: 11/18/16 10:04 Dose: 1 unit Diazepam (Valium) 5 mg PO TID [facility] PRN Reason: Protocol Last Admin: 11/20/16 09:52 Dose: 5 mg Duloxetine HCl (Cymbalta) 40 mg PO DAILY [facility] Last Admin: 11/20/16 09:51 Dose: 40 mg Furosemide (Lasix) 20 mg PO DAILY [facility] Last Admin: 11/20/16 09:51 Dose: 20 mg Heparin Sodium (Porcine) (Heparin) 5,000 units SC Q8 [facility] PRN Reason: Protocol Last Admin: 11/20/16 05:50 Dose: 5,000 units Hydrochlorothiazide (Microzide) 12.5 mg PO DAILY [facility] Last Admin: 11/20/16 09:52 Dose: 12.5 mg Vancomycin HCl (Vancomycin 1gm) 1 gm in 250 mls @ 167 mls/hr IVPB Q12H [facility] PRN Reason: Protocol Stop: 11/25/16 07:16 Last Admin: 11/20/16 06:40 Dose: 167 mls/hr Insulin Human Lispro (Humalog Low) 0 units SC ACHS [facility] PRN Reason: Protocol Last Admin: 11/20/16 07:51 Dose: 1 units Lisinopril (Zestril) 10 mg PO DAILY [facility] Last Admin: 11/20/16 09:53 Dose: 10 mg Nicotine (Nicoderm Cq) 1 patch TD DAILY [facility] Last Admin: 11/19/16 09:05 Dose: Not Given Nystatin (Nystop Topical Powder) 0 gm TOP BID [facility] Last Admin: 11/20/16 09:51 Dose: 1 applic Oxycodone HCl (Oxycodone Immediate Release Tab) 20 mg PO QID [facility] Last Admin: 11/20/16 09:52 Dose: 20 mg Pantoprazole Sodium (Protonix Ec Tab) 40 mg PO ACB [facility] Last Admin: 11/20/16 07:51 Dose: 40 mg - Labs Labs: 11/20/16 08:28 11/20/16 08:28 APTT 31.3 Seconds (23.7-30.8) H 11/11/16 07:45 Attending/Attestation - Attestation I have personally seen and examined this patient.: Yes I have fully participated in the care of the patient.: Yes I have reviewed all pertinent clinical information, including history, physical exam and plan: Yes
[2016-11-15] MEDS: Dextrose 5%/0.45% NS 1,000 ML IV SCH (06:06)
[2016-11-15] MEDS: Meropenem 1g/NS 100mL IVPB 1 GM/100 ML PIGGYBACK IVPB SCH ×2 (06:06→13:39)
[2016-11-15] MEDS: Vancomycin 1gm in NS 250ml 1 GM/250 ML BAG IVPB SCH ×2 (07:07→21:39)
[2016-11-15 07:29] LABS: ADD MANUAL DIFF? NO
[2016-11-15 07:33] LABS: BASO # 0.02 K/mm3 (0.0-2.0); BASO % 0.3 % (0.0-3.0); EOS # 0.1 (0.0-0.7); EOS % 1.6 % (1.5-5.0); GRAN # 4.02 (1.4-6.5); GRAN % 58.1 % (50.0-68.0); HEMATOCRIT 36.2 % (42.0-52.0); LYMPH % 28.2 % (22.0-35.0); MEAN CELL VOLUME 82.6 fL (80.0-105.0); MEAN CORPUSCULAR HEMOGLOBIN 27.4 pg (25.0-35.0); MEAN CORPUSCULAR HGB CONC 33.1 g/dl (31.0-37.0); MEAN PLATELET VOLUME 8.8 fl (7.0-11.0); MONO # 0.8 (0.1-0.6); MONO % 11.8 % (1.0-6.0); PLATELET COUNT 285 10^3/uL (120.0-450.0); RED CELL DISTRIBUTION WIDTH 13.1 % (11.5-14.5); WHITE BLOOD COUNT 6.9 10^3/ul (4.5-11.0)
[2016-11-15 07:50] LABS: ALB/GLOB RATIO 1.1 (1.1-1.8); ALKALINE PHOSPHATASE 78 U/L (38-133); ALT/SGPT 32 U/L (7-56); AST/SGOT 29 U/L (15-59); BILIRUBIN,TOTAL 0.5 mg/dL (0.2-1.3); BLOOD UREA NITROGEN 16 mg/dL (7-21); CALCIUM 9.2 mg/dL (8.4-10.5); CARBON DIOXIDE 31 mmol/L (21-33); CHLORIDE 93 mmol/L (98-107); GFR AFRICAN-AMERICAN > 60; GLUCOSE,RANDOM 127 mg/dL (70-110); POTASSIUM 4.3 mmol/L (3.6-5.0); SODIUM 133 mmol/L (132-148); TOTAL PROTEIN 7.4 g/dL (5.8-8.3)
[2016-11-15] MEDS: Insulin Lispro (humaLOG) LOW Coverage SC SCH ×3 (07:59→16:20)
--- NOTE | 2016-11-15 08:07 | PN ---
DATE: 11/14/2016 The patient is in room 566, bed 1. The patient was seen earlier. No fevers and no chills. PHYSICAL EXAMINATION: VITAL SIGNS: Temperature is 98, blood pressure is 117/80, respiratory rate 16. HEENT: Unremarkable. NECK: Supple. LUNGS: Have decreased breath sounds. HEART: Normal S1, S2. ABDOMEN: Soft. LABORATORY DATA: Reveals a white count of 5.8, hemoglobin of 12, platelets of 277. BUN of 15, creat inine of 0.9. The serology is noted. RPR is negative. HIV is negative. Microbiology reveals the f oot culture has Staph coag negative on multiple cultures. The blood cultures are no growth. Review of ____ reveals the patient to be on vancomycin and meropenem. Dr. Gallegos' note is reviewed . ASSESSMENT AND PLAN: He is a 46-year-old male with obesity, body mass index of 35, diabetes mellitus , hypertension, history of group B streptococcus, presenting with a coagulase-negative staphylococcus and left foot cellulitis and osteomyelitis. On vancomycin and meropenem. The patient is scheduled for operating room tomorrow morning for possible left fifth ray amputation. Will make decision on th e duration and antibiotic type based on the operating room cultures and pathology report. Currently, will continue the vancomycin and meropenem. Will order a vancomycin trough level. The patient rece abel his vancomycin at 7:15 and 1915 (b.i.d.). Will order a vancomycin trough level for 6:15 tomorro w morning. Case discussed with the patient at length. Will follow closely with you. Holland Paul MD cc: [phone] TT: 11/14/2016 19:47:27 Confirmation # [id number] Dictation # [id number] mn
--- NOTE | 2016-11-15 09:13 | CP.PCM.PN ---
<Hernando Monaco - Last Filed: 11/15/16 11:17> Subjective - Date & Time of Evaluation Date of Evaluation: 11/15/16 Time of Evaluation: 09:08 - Subjective Subjective: Medicine progress note - Hernando Monaco PGY 1 Patient seen and examined at bedside this morning. No acute overnight events or new complaints. Patient is aware of plan for surgery today at approximately 4pm. Denies chest pain, palpitations, SOB, abdominal pain, nausea, vomiting. Objective - Vital Signs/Intake and Output Vital Signs (last 24 hours): Temp Pulse Resp BP Pulse Ox 98.3 F 71 18 123/80 97 11/15/16 07:30 11/15/16 07:30 11/15/16 07:30 11/15/16 07:30 11/15/16 07:30 Intake and Output: 11/15/16 11/15/16 06:59 18:59 Intake Total 1200 Balance 1200 - Medications Medications: Current Medications Carisoprodol (Soma) 350 mg PO QID [facility] Last Admin: 11/14/16 21:57 Dose: 350 mg Furosemide (Lasix) 20 mg PO DAILY [facility] Last Admin: 11/14/16 13:25 Dose: 20 mg Heparin Sodium (Porcine) (Heparin) 5,000 units SC Q8 [facility] PRN Reason: Protocol Last Admin: 11/14/16 13:29 Dose: Not Given Hydrochlorothiazide (Microzide) 12.5 mg PO DAILY [facility] Last Admin: 11/14/16 09:51 Dose: 12.5 mg Vancomycin HCl (Vancomycin 1gm) 1 gm in 250 mls @ 167 mls/hr IVPB Q12H [facility] PRN Reason: Protocol Stop: 11/25/16 07:16 Last Admin: 11/15/16 07:07 Dose: 167 mls/hr Meropenem 1g/NS 100mL IVPB (Meropenem 1g/Ns 100ml Ivpb) 1 gm in 100 mls @ 100 mls/hr IVPB Q8 [facility] PRN Reason: Protocol Stop: 11/21/16 22:01 Last Admin: 11/15/16 06:06 Dose: 100 mls/hr Dextrose/Sodium Chloride (Dextrose 5%/0.45% Ns 1000 Ml) 1,000 mls @ 100 mls/hr IV .Q10H [facility] Last Admin: 11/15/16 06:06 Dose: 100 mls/hr Insulin Human Lispro (Humalog Low) 0 units SC ACHS [facility] PRN Reason: Protocol Last Admin: 11/15/16 07:59 Dose: Not Given Lisinopril (Zestril) 10 mg PO DAILY [facility] Last Admin: 11/14/16 09:52 Dose: Not Given Nicotine (Nicoderm Cq) 1 patch TD DAILY [facility] Last Admin: 11/14/16 09:51 Dose: Not Given Nystatin (Nystop Topical Powder) 0 gm TOP BID [facility] Last Admin: 11/14/16 17:59 Dose: 1 applic Oxycodone HCl (Oxycodone Immediate Release Tab) 20 mg PO QID [facility] Last Admin: 11/14/16 21:57 Dose: 20 mg Pantoprazole Sodium (Protonix Ec Tab) 40 mg PO ACB [facility] Last Admin: 11/14/16 08:21 Dose: 40 mg - Labs Labs: 11/15/16 07:00 11/15/16 07:00 APTT 31.3 Seconds (23.7-30.8) H 11/11/16 07:45 - Constitutional Appears: Non-toxic, No Acute Distress - Head Exam Head Exam: ATRAUMATIC, NORMAL INSPECTION, NORMOCEPHALIC - Eye Exam Eye Exam: EOMI, PERRL - ENT Exam ENT Exam: Mucous Membranes Moist - Neck Exam Neck Exam: Normal Inspection - Respiratory Exam Respiratory Exam: Clear to Ausculation Bilateral. absent: Rales, Rhonchi, Wheezes - Cardiovascular Exam Cardiovascular Exam: RRR, +S1, +S2. absent: Diastolic murmur, Gallop, Rubs, Murmur - GI/Abdominal Exam GI & Abdominal Exam: Soft, Normal Bowel Sounds. absent: Distended, Firm, Guarding, Rigid, Tenderness, Rebound - Neurological Exam Neurological Exam: Alert, Awake, Oriented x3 - Psychiatric Exam Psychiatric exam: Normal Affect, Normal Mood - Skin Skin Exam: Dry, Intact, Normal Color, Warm Assessment and Plan - Assessment and Plan (Free Text) Plan: 46yo male with history of diabetes mellitus type 2, hypertension and osteomyelitis presents c/o left foot ulcer complicated by edema 1. Osteomyelitis -Left Foot x-ray revealed osteomyelitis of the distal 5th metatarsal ; see full report -MRI left foot consistent with osteomyelitis of the distal 5th metatarsal and at the base of the proximal phalanx of the 5th toe; see full report -Patient currently on vancomycin and meropenem per ID recommendations -Patient scheduled for surgery this morning with Dr. Jordan at approximately 4pm ; will continue to follow and medically optimize as needed -JOSE/PVR reviewed and within normal limits -Wound culture positive for coagulase negative staph; Blood cultures negative -Patient to be medically optimized prior to surgery -ID consulted - Dr. Paul -Podiatry consulted - Dr. Jordan 2. Diabetes mellitus type 2 -Fingerstick ACHS -Consistent carb diet -Humalog ISS low dose 3. Hypertension -Continue with lisinopril/lasix 4. GI/DVT Prophylaxis -Protonix/Heparin Patient seen, examined and case reviewed/discussed with attending, Dr. Butts <Hayder Butts - Last Filed: 12/16/16 08:46> Objective - Vital Signs/Intake and Output Vital Signs (last 24 hours): Temp Pulse Resp BP Pulse Ox 97.9 F 73 18 112/73 97 11/22/16 16:00 11/22/16 16:00 11/22/16 16:00 11/22/16 16:00 11/22/16 16:00 - Labs Labs: 11/21/16 05:00 11/21/16 05:00 APTT 31.3 Seconds (23.7-30.8) H 11/11/16 07:45 Attending/Attestation - Attestation I have personally seen and examined this patient.: Yes I have fully participated in the care of the patient.: Yes I have reviewed all pertinent clinical information, including history, physical exam and plan: Yes Notes (Text): 12/16/16 08:46 Medical record note made by the resident after discussion with my direction and input after the patient was personally seen and examined by me. I have reviewed the chart and agree that the record reflects my personal performance of history, physical, data review and course for the patient that I have planned.
[2016-11-15] MEDS: Pantoprazole 40 mg EC Tab PO SCH (09:34)
[2016-11-15] MEDS: oxyCODONE 20 mg Immediate Release Tab PO SCH ×3 (09:35→22:53)
[2016-11-15] MEDS: Nystatin 100,000 Units/gm Topical Pow(15 gm) TOP SCH ×2 (09:35→18:40)
--- NOTE | 2016-11-15 11:20 | CP.PCM.PN ---
<Beverley Gallegos - Last Filed: 11/15/16 15:16> Subjective - Date & Time of Evaluation Date of Evaluation: 11/15/16 Time of Evaluation: 11:17 - Subjective Subjective: 46 y/o male with a PMHx of Diabetes Mellitus, diabetic foot ulcers, and chronic back pain seen at bedside regarding left foot ulceration. Patient denies any pain to his foot. He is aware that he is to go to surgery for a left 5th ray amputation today around 4 pm. Patient admits he is NPO since this morning, except for his medication. He denies any n/f/v/c/d/sob Objective - Vital Signs/Intake and Output Vital Signs (last 24 hours): Temp Pulse Resp BP Pulse Ox 98.3 F 69 18 140/82 97 11/15/16 07:30 11/15/16 10:33 11/15/16 07:30 11/15/16 10:33 11/15/16 07:30 Intake and Output: 11/15/16 11/15/16 06:59 18:59 Intake Total 1200 Balance 1200 - Medications Medications: Current Medications Carisoprodol (Soma) 350 mg PO QID [facility] Last Admin: 11/15/16 09:34 Dose: 350 mg Furosemide (Lasix) 20 mg PO DAILY [facility] Last Admin: 11/15/16 10:33 Dose: 20 mg Heparin Sodium (Porcine) (Heparin) 5,000 units SC Q8 [facility] PRN Reason: Protocol Last Admin: 11/14/16 13:29 Dose: Not Given Hydrochlorothiazide (Microzide) 12.5 mg PO DAILY [facility] Last Admin: 11/14/16 09:51 Dose: 12.5 mg Vancomycin HCl (Vancomycin 1gm) 1 gm in 250 mls @ 167 mls/hr IVPB Q12H [facility] PRN Reason: Protocol Stop: 11/25/16 07:16 Last Admin: 11/15/16 07:07 Dose: 167 mls/hr Meropenem 1g/NS 100mL IVPB (Meropenem 1g/Ns 100ml Ivpb) 1 gm in 100 mls @ 100 mls/hr IVPB Q8 [facility] PRN Reason: Protocol Stop: 11/21/16 22:01 Last Admin: 11/15/16 06:06 Dose: 100 mls/hr Dextrose/Sodium Chloride (Dextrose 5%/0.45% Ns 1000 Ml) 1,000 mls @ 100 mls/hr IV .Q10H [facility] Last Admin: 11/15/16 06:06 Dose: 100 mls/hr Insulin Human Lispro (Humalog Low) 0 units SC ACHS [facility] PRN Reason: Protocol Last Admin: 11/15/16 07:59 Dose: Not Given Lisinopril (Zestril) 10 mg PO DAILY [facility] Last Admin: 11/15/16 10:33 Dose: 10 mg Nicotine (Nicoderm Cq) 1 patch TD DAILY [facility] Last Admin: 11/15/16 09:41 Dose: Not Given Nystatin (Nystop Topical Powder) 0 gm TOP BID [facility] Last Admin: 11/15/16 09:35 Dose: 1 applic Oxycodone HCl (Oxycodone Immediate Release Tab) 20 mg PO QID [facility] Last Admin: 11/15/16 09:35 Dose: 20 mg Pantoprazole Sodium (Protonix Ec Tab) 40 mg PO ACB [facility] Last Admin: 11/15/16 09:34 Dose: 40 mg - Labs Labs: 11/15/16 07:00 11/15/16 07:00 APTT 31.3 Seconds (23.7-30.8) H 11/11/16 07:45 - Constitutional Appears: Well, Non-toxic, No Acute Distress - Extremities Exam Additional comments: dressing clean, dry, intact to left foot - Neurological Exam Neurological Exam: Alert, Awake, Oriented x3 - Psychiatric Exam Psychiatric exam: Normal Affect, Normal Mood Assessment and Plan - Assessment and Plan (Free Text) Assessment: 46 year old male seen at bedside for left foot plantar ulceration secondary to diabetes Plan: Patient examined and evaluated Discussed with attending, Dr. Jordan labs and vitals reviewed; afebrile, WBC 5.8 X-ray of left foot shows bony destruction of 5th metatarsal consistent with OM MRI of left foot reviewed Continue IV abx as per ID JOSE/PVR reviewed and within normal limits Wound cx-coagulase negative staph Patient for left 5th ray resection today at 4pm with Dr. Jordan Heparin Held NPO status confirmed Discussed with patient risks, benefits, complications of surgery Patient is optimized for surgery per primary team Podiatry will continue to monitor while patient remains in house <Ulices Jordan - Last Filed: 11/18/16 11:02> Objective - Vital Signs/Intake and Output Vital Signs (last 24 hours): Temp Pulse Resp BP Pulse Ox 98.3 F 68 18 122/68 98 11/18/16 07:30 11/18/16 10:03 11/18/16 07:30 11/18/16 10:03 11/18/16 07:30 Intake and Output: 11/18/16 11/18/16 06:59 18:59 Intake Total 800 Balance 800 - Medications Medications: Current Medications Acetaminophen (Tylenol 325mg Tab) 650 mg PO Q6H PRN PRN Reason: Pain, Mild (1-3) Last Admin: 11/16/16 06:43 Dose: 650 mg Benzocaine (Orajel Pm Maximum Strength) 1 gm MT QID PRN PRN Reason: tooth pain Last Admin: 11/18/16 10:04 Dose: 1 unit Duloxetine HCl (Cymbalta) 40 mg PO DAILY [facility] Last Admin: 11/18/16 10:03 Dose: 40 mg Furosemide (Lasix) 20 mg PO DAILY [facility] Last Admin: 11/18/16 10:02 Dose: 20 mg Heparin Sodium (Porcine) (Heparin) 5,000 units SC Q8 [facility] PRN Reason: Protocol Last Admin: 11/18/16 05:10 Dose: 5,000 units Hydrochlorothiazide (Microzide) 12.5 mg PO DAILY [facility] Last Admin: 11/18/16 10:03 Dose: 12.5 mg Vancomycin HCl (Vancomycin 1gm) 1 gm in 250 mls @ 167 mls/hr IVPB Q12H [facility] PRN Reason: Protocol Stop: 11/25/16 07:16 Last Admin: 11/18/16 06:16 Dose: 167 mls/hr Meropenem 1g/NS 100mL IVPB (Meropenem 1g/Ns 100ml Ivpb) 1 gm in 100 mls @ 100 mls/hr IVPB Q8 [facility] PRN Reason: Protocol Stop: 11/21/16 22:01 Last Admin: 11/18/16 05:10 Dose: 100 mls/hr Insulin Human Lispro (Humalog Low) 0 units SC ACHS [facility] PRN Reason: Protocol Last Admin: 11/18/16 08:53 Dose: Not Given Lisinopril (Zestril) 10 mg PO DAILY [facility] Last Admin: 11/18/16 10:03 Dose: 10 mg Nicotine (Nicoderm Cq) 1 patch TD DAILY [facility] Last Admin: 11/18/16 10:04 Dose: Not Given Nystatin (Nystop Topical Powder) 0 gm TOP BID [facility] Last Admin: 11/18/16 10:03 Dose: 1 applic Oxycodone HCl (Oxycodone Immediate Release Tab) 20 mg PO QID [facility] Last Admin: 11/18/16 10:04 Dose: 20 mg Pantoprazole Sodium (Protonix Ec Tab) 40 mg PO ACB [facility] Last Admin: 11/18/16 08:53 Dose: Not Given - Labs Labs: 11/16/16 10:30 11/16/16 10:30 APTT 31.3 Seconds (23.7-30.8) H 11/11/16 07:45 Attending/Attestation - Attestation I have personally seen and examined this patient.: Yes I have fully participated in the care of the patient.: Yes I have reviewed all pertinent clinical information, including history, physical exam and plan: Yes
--- NOTE | 2016-11-15 14:07 | CARD ---
APPROVED REPORT EKG Measurement Heart [id number] <Conclusion> Normal sinus rhythm Normal ECG
[2016-11-15] MEDS ORDERED: Lidocaine 2% Inj (20ml) ONE (15:47)
[2016-11-15] MEDS ORDERED: Bupivacaine 0.5% Inj(30mL) ONE (16:03)
[2016-11-15] MEDS ORDERED: Midazolam 2 MG/2 ML VIAL ONE (16:06)
[2016-11-15] MEDS ORDERED: Propofol 10 mg/ml Inj (20 ML) ONE ×2 (16:06→16:30)
--- NOTE | 2016-11-15 16:40 | CON ---
DATE: 11/15/2016 SUBJECTIVE: Shortly, the patient is a 53-year-old male with multiple medical issues includ ing diabetes mellitus type 2, hypertension, and osteomyelitis. The patient was admitted on the medic al floor for evaluation of left foot ulcer complicated by edema, was found to have osteomyelitis. Th e patient was started on antibiotics. The patient was scheduled for left fifth metatarsal amputation today. Psych consult was called for evaluation of depressive symptoms. The patient was evaluated t behzad. Patient presented to be disengaged in the interview. The patient was falling asleep during in terview. Patient reported being depressed, reported to feel hopeless and helpless, but denied though ts of harming himself or others. The patient asked this comic book writer to come back later on or tomorrow in order to have full assessment because he was not feeling well. Besides that, the patient denied thou ghts of harming himself or others, denied intent or plan. The patient denied hearing voices, denied seeing things. PAST PSYCHIATRIC HISTORY: Will be discussed tomorrow, but patient denied history of being admitted t o the psychiatric inpatient unit and denied history of suicidal attempts. The patient reported his g irlfriend is supportive. MEDICATIONS: Reviewed. VITAL SIGNS: Reviewed. LABORATORY DATA: Reviewed. MENTAL STATUS EXAMINATION: The patient presented to be sleepy, disengaged into the conversation. Mo od described as depressed and hopeless. Affect was flat. Thought process seems to be coherent and g oal directed. Thought content: The patient denied visual, auditory, or tactile hallucinations. Den ied paranoid ideations. The patient denied thoughts of harming herself or others. Denied intent or plan. The patient's insight and judgment improving. Impulses are well controlled. IMPRESSION: Rule out major depressive disorder, rule out mood disorder due to general medical condit ion. The patient has multiple medical issues, diabetes, hypertension, osteomyelitis. The patient wa s scheduled for a toe amputation today. Please see medical team notes for more detailed information. PLAN: The patient will be reevaluated tomorrow. The patient was in the operating room today, later on. Patient might benefit from Cymbalta for diabetic neuropathy as well as depression and anxiety. Treatment options will be discussed with the patient. We will monitor and follow up on this patient closely. Thank you very much for letting me participate in the care of your patient. We will get back to you and advise accordingly. Jeannine Case MD cc: [phone] TT: 11/15/2016 16:39:46 Confirmation # [id number] Dictation # [id number] jn
[2016-11-15] MEDS ORDERED: HYDROmorphone 0.5 mg/0.5 ml ISec IVP PRN (17:16)
[2016-11-15] MEDS ORDERED: Oxycodone/Acetaminophen 5/325 mg Tab PO PRN ×2 (17:17)
--- NOTE | 2016-11-15 17:23 | PCM.SURG1 ---
<Beverley Gallegos - Last Filed: 11/15/16 17:20> Surgeon's Initial Post Op Note - Surgeon's Notes Surgeon: Dr. Jordan DPM Cabinet Maker: Dr. Gallegos DPM PGY-1 Type of Anesthesia: IV Sedation, Local Pre-Operative Diagnosis: diabetic left foot ulceration with osteomyelitis of left fifth metataral and proximal phalanx Operative Findings: see dictation. I: 18 mL 1:1 mixture of 2% lidocaine and 0.5 % marcaine plain. M: 3-0 vicryl, 3-0 nylon Post-Operative Diagnosis: same Operation Performed: removal of 5th toe and partial fifth metatarsal on left foot Specimen/Specimens Removed: bone and wound culture left foot Estimated Blood Loss: EBL {In ML}: 5 Blood Products Given: N/A Drains Used: No Drains Post-Op Condition: Good Date of Surgery/Procedure: 11/15/16 Time of Surgery/Procedure: 16:40 <Ulices Jordan - Last Filed: 11/18/16 11:03> Attending/Attestation - Attestation I have personally seen and examined this patient.: Yes I have fully participated in the care of the patient.: Yes I have reviewed all pertinent clinical information: Yes
[2016-11-15] MEDS ORDERED: Sodium Chloride 0.9% 1,000 ML IV SCH (17:30)
[2016-11-15] MEDS ORDERED: Oxycodone/Acetaminophen 5/325 mg Tab ONE (18:11)
--- NOTE | 2016-11-15 19:28 | OP ---
PROCEDURE DATE: 11/15/2016 INDICATIONS: The patient is a 46-year-old male who presented to the Emergency Room approximately 4 d ays ago with a diabetic left foot ulceration. The patient has profound diabetic neuropathy and did n ot feel the wound until he saw blood on his socks. Upon admission, subsequent x-rays and MRI reports confirmed osteomyelitis of the left fifth metatarsal head and proximal phalanx. Clinically, the pat ient presented with a large diabetic ulceration at the plantar aspect of the left fifth metatarsophal angeal joint that was foul smelling and emanating purulence. Treatment options included 4-6 weeks of IV antibiotics or fifth ray resection. The patient opted for fifth ray resection as he has had [facility] issues as he is uninsured and is unable to get [facility] and does not want the expense invol ed with the 4-6 weeks of IV antibiotics. SURGEON: Ulices Jordan DPM. PAN TANK WORKER: Beverley Gallegos DPM. PREOPERATIVE DIAGNOSES: Blackmon grade III diabetic left foot ulceration with osteomyelitis of the fif th metatarsal head and proximal phalanx on the left foot. POSTOPERATIVE DIAGNOSES: Blackmon grade III diabetic left foot ulceration with osteomyelitis of the fi fth metatarsal head and proximal phalanx on the left foot. PATHOLOGY: Metatarsal bone, fifth digit, soft tissue and necrotic tissue. PROCEDURE: Left fifth ray resection. ANESTHESIA: Local with monitored anesthetic care. HEMOSTASIS: Pneumatic ankle tourniquet set on the left ankle for 39 minutes at 250 mmHg. ESTIMATED BLOOD LOSS: Minimal. MATERIALS USED: Sterile Adaptic, Betadine solution, 3-0 Vicryl, 4-0 nylon, sterile 4 x 4s, sterile a bdominal pads and Kerlix with Coban. INJECTABLES: Approximately 16 mL of a 1:1 ratio of 2% lidocaine plain and 0.5% Marcaine plain. PROCEDURE IN DETAIL: The patient was brought into the operating room in his operating bed and transf erred to the operating room table. Following a period of IV sedation, the foot was scrubbed, prepped and draped in the usual aseptic manner. Attention was directed to the fifth metatarsal region of th e left foot where there was noted to be a large plantar ulceration measuring approximately 1.5 cm x 1 .5 cm x 0.6 cm, which probed to bone and there was visible metatarsal head present. Upon range of mo tion of the fifth metatarsophalangeal joint, there was noted to be crepitus and a movement of fractur ed bone. Attention was directed dorsally and a racquet type incision was made that encompassed the f ifth digit and transversed proximally up the fifth metatarsal shaft. Incision was deepened with care to retract all vital and neurovascular structures. At this point, the fifth digit was disarticulate d at the fifth MPJ and removed in toto. There was noted to be minimal foul smell and minimal purulen ce at this point. It was then noted at this time that the most distal aspect of the fifth metatarsal head was completely disarticulated and fractured. This loose fragment was removed in toto. The rem aining fifth metatarsal was dissected free of its periosteal attachments approximately 2 cm proximall y. At this point, a sagittal saw was used to resect the soft, pliable metatarsal bone and it was pas sed from the operative field. All specimens were sent for culture and sensitivity. At this time, a piece of the most proximal fifth metatarsal bone was taken as a sample and submitted for culture and sensitivity. At this point, all fibrotic and necrotic tissue was debrided and removed from the opera tive site utilizing a pulse lavage. The wound was flushed and a new culture was taken and submitted for sensitivity. Utilizing 3-0 Vicryl, the subcutaneous tissues were approximated. Next, utilizing 4-0 nylon in a simple suture technique along with a horizontal suture technique, the wound was closed . Betadine-soaked Adaptic was then covered over the incisions and plantar wound. Sterile 4 x 4, elisa rile abdominal pad, Kerlix and Coban was then applied. The patient was transferred from the [facility] g room to the recovery room by the surgeon and anesthesiologist with all vital signs stable. Stat x- rays were ordered as well as postoperative pain medication, which includes Percocet 5/325 mg. The pa tient will resume diabetic diet and we will keep him off weightbearing for the next 24 hours. After a period of postoperative monitoring, he will be sent back to his room, which is room 566, bed 1. Th e patient will be seen and followed in the morning. Ulices Jordan DPM cc: [id number] TT: 11/15/2016 19:28:12 rn
--- NOTE | 2016-11-15 21:04 | CP.PCM.PN ---
Subjective - Date & Time of Evaluation Date of Evaluation: 11/15/16 Time of Evaluation: 10:10 - Subjective Subjective: Comfortable in bed, not in distress, no fevers overnight, for OR today, less pain in the foot. Objective - Vital Signs/Intake and Output Vital Signs (last 24 hours): Temp Pulse Resp BP Pulse Ox 98.3 F 71 18 123/80 97 11/15/16 07:30 11/15/16 07:30 11/15/16 07:30 11/15/16 07:30 11/15/16 07:30 Intake and Output: 11/15/16 11/15/16 06:59 18:59 Intake Total 1200 Balance 1200 - Medications Medications: Current Medications Carisoprodol (Soma) 350 mg PO QID [facility] Last Admin: 11/15/16 09:34 Dose: 350 mg Furosemide (Lasix) 20 mg PO DAILY [facility] Last Admin: 11/14/16 13:25 Dose: 20 mg Heparin Sodium (Porcine) (Heparin) 5,000 units SC Q8 [facility] PRN Reason: Protocol Last Admin: 11/14/16 13:29 Dose: Not Given Hydrochlorothiazide (Microzide) 12.5 mg PO DAILY [facility] Last Admin: 11/14/16 09:51 Dose: 12.5 mg Vancomycin HCl (Vancomycin 1gm) 1 gm in 250 mls @ 167 mls/hr IVPB Q12H [facility] PRN Reason: Protocol Stop: 11/25/16 07:16 Last Admin: 11/15/16 07:07 Dose: 167 mls/hr Meropenem 1g/NS 100mL IVPB (Meropenem 1g/Ns 100ml Ivpb) 1 gm in 100 mls @ 100 mls/hr IVPB Q8 [facility] PRN Reason: Protocol Stop: 11/21/16 22:01 Last Admin: 11/15/16 06:06 Dose: 100 mls/hr Dextrose/Sodium Chloride (Dextrose 5%/0.45% Ns 1000 Ml) 1,000 mls @ 100 mls/hr IV .Q10H [facility] Last Admin: 11/15/16 06:06 Dose: 100 mls/hr Insulin Human Lispro (Humalog Low) 0 units SC ACHS [facility] PRN Reason: Protocol Last Admin: 11/15/16 07:59 Dose: Not Given Lisinopril (Zestril) 10 mg PO DAILY [facility] Last Admin: 11/14/16 09:52 Dose: Not Given Nicotine (Nicoderm Cq) 1 patch TD DAILY [facility] Last Admin: 11/15/16 09:41 Dose: Not Given Nystatin (Nystop Topical Powder) 0 gm TOP BID [facility] Last Admin: 11/15/16 09:35 Dose: 1 applic Oxycodone HCl (Oxycodone Immediate Release Tab) 20 mg PO QID [facility] Last Admin: 11/15/16 09:35 Dose: 20 mg Pantoprazole Sodium (Protonix Ec Tab) 40 mg PO ACB [facility] Last Admin: 11/15/16 09:34 Dose: 40 mg - Labs Labs: 11/15/16 07:00 11/15/16 07:00 APTT 31.3 Seconds (23.7-30.8) H 11/11/16 07:45 - Constitutional Appears: Non-toxic, No Acute Distress - Head Exam Head Exam: NORMAL INSPECTION - ENT Exam ENT Exam: Mucous Membranes Moist - Neck Exam Neck Exam: absent: Lymphadenopathy, Meningismus - Respiratory Exam Respiratory Exam: Decreased Breath Sounds - Cardiovascular Exam Cardiovascular Exam: +S1, +S2 - GI/Abdominal Exam GI & Abdominal Exam: Soft. absent: Tenderness Assessment and Plan - Assessment and Plan (Free Text) Plan: Assessment Acute osteomyelitis of the 5th metatarsal and 5th toe proximal phalanx associated with cellulitis history of Left foot skin and skin structure infection DM S/P 4th toe amputation on the left foot (for infection) multiple episodes of skin/skin structure infection of the lower extremities Plan Continue Vancomyin and Merrem pending OR cx and pathology Will continue to monitor clinically
[2016-11-16] MEDS: Meropenem 1g/NS 100mL IVPB 1 GM/100 ML PIGGYBACK IVPB SCH ×4 (00:11→23:54)
[2016-11-16] MEDS: Insulin Lispro (humaLOG) LOW Coverage SC SCH ×4 (00:25→17:03)
[2016-11-16] MEDS: Vancomycin 1gm in NS 250ml 1 GM/250 ML BAG IVPB SCH ×2 (06:44→20:05)
[2016-11-16] MEDS: Dextrose 5%/0.45% NS 1,000 ML IV SCH (08:05)
--- NOTE | 2016-11-16 08:34 | RAD ---
PROCEDURE: Left Foot Radiographs. HISTORY: s/p left foot surgery COMPARISON: 11/11/2016 FINDINGS: BONES: Interval amputation of the 5th digit - distal to the previously referenced 5th metatarsal head osteomyelitis suggested site The prior 4th digit amputation is as before. Inferior cane as per. Hammertoe orientations JOINTS: Normal. SOFT TISSUES: Soft tissue mottled density consistent with recent postop changes. OTHER FINDINGS: None. IMPRESSION: Interval 5th digit amputation as above. Recent postop changes
[2016-11-16] MEDS: Pantoprazole 40 mg EC Tab PO SCH (09:41)
[2016-11-16] MEDS: Nystatin 100,000 Units/gm Topical Pow(15 gm) TOP SCH (09:44)
[2016-11-16] MEDS: oxyCODONE 20 mg Immediate Release Tab PO SCH ×4 (09:47→22:37)
[2016-11-16 10:43] LABS: ADD MANUAL DIFF? NO
[2016-11-16 10:47] LABS: BASO # 0.01 K/mm3 (0.0-2.0); BASO % 0.1 % (0.0-3.0); EOS # 0.1 (0.0-0.7); EOS % 1.1 % (1.5-5.0); GRAN % 65.4 % (50.0-68.0); HEMATOCRIT 36.7 % (42.0-52.0); LYMPH # 1.5 (1.2-3.4); LYMPH % 19.5 % (22.0-35.0); MEAN CORPUSCULAR HEMOGLOBIN 27.7 pg (25.0-35.0); MEAN PLATELET VOLUME 8.5 fl (7.0-11.0); MONO % 13.9 % (1.0-6.0); PLATELET COUNT 263 10^3/uL (120.0-450.0); RED CELL DISTRIBUTION WIDTH 13.1 % (11.5-14.5); WHITE BLOOD COUNT 7.5 10^3/ul (4.5-11.0)
[2016-11-16 10:54] LABS: ALKALINE PHOSPHATASE 77 U/L (38-133); ALT/SGPT 44 U/L (7-56); AST/SGOT 29 U/L (15-59); BILIRUBIN,TOTAL 0.4 mg/dL (0.2-1.3); BLOOD UREA NITROGEN 14 mg/dL (7-21); CALCIUM 8.9 mg/dL (8.4-10.5); CARBON DIOXIDE 31 mmol/L (21-33); CHLORIDE 98 mmol/L (95-110); GFR AFRICAN-AMERICAN > 60; GLUCOSE,RANDOM 185 mg/dL (70-110); POTASSIUM 4.2 mmol/L (3.6-5.0); SODIUM 135 mmol/L (132-148); TOTAL PROTEIN 6.7 g/dL (5.8-8.3)
--- NOTE | 2016-11-16 11:45 | CP.PCM.PN ---
<Hernando Monaco - Last Filed: 11/16/16 11:42> Subjective - Date & Time of Evaluation Date of Evaluation: 11/16/16 Time of Evaluation: 11:42 - Subjective Subjective: Medicine progress note - Hernando Monaco PGY1 Patient seen and examined at bedside. No acute overnight events or new complaints. Patient tolerated left 5th metatarsal amputation well. Today is POD #1. Denies chest pain, palpitations, SOB. Objective - Vital Signs/Intake and Output Vital Signs (last 24 hours): Temp Pulse Resp BP Pulse Ox 98.3 F 71 20 115/74 97 11/16/16 08:57 11/16/16 09:41 11/16/16 08:57 11/16/16 09:41 11/16/16 08:57 Intake and Output: 11/16/16 11/16/16 06:59 18:59 Intake Total 1200 Output Total 2900 Balance -1700 - Medications Medications: Current Medications Acetaminophen (Tylenol 325mg Tab) 650 mg PO Q6H PRN PRN Reason: Pain, Mild (1-3) Last Admin: 11/16/16 06:43 Dose: 650 mg Carisoprodol (Soma) 350 mg PO QID [facility] Last Admin: 11/16/16 09:40 Dose: 350 mg Furosemide (Lasix) 20 mg PO DAILY [facility] Last Admin: 11/16/16 09:40 Dose: 20 mg Heparin Sodium (Porcine) (Heparin) 5,000 units SC Q8 [facility] PRN Reason: Protocol Last Admin: 11/14/16 13:29 Dose: Not Given Hydrochlorothiazide (Microzide) 12.5 mg PO DAILY [facility] Last Admin: 11/16/16 09:40 Dose: 12.5 mg Vancomycin HCl (Vancomycin 1gm) 1 gm in 250 mls @ 167 mls/hr IVPB Q12H [facility] PRN Reason: Protocol Stop: 11/25/16 07:16 Last Admin: 11/16/16 06:44 Dose: 167 mls/hr Meropenem 1g/NS 100mL IVPB (Meropenem 1g/Ns 100ml Ivpb) 1 gm in 100 mls @ 100 mls/hr IVPB Q8 [facility] PRN Reason: Protocol Stop: 11/21/16 22:01 Last Admin: 11/16/16 05:19 Dose: 100 mls/hr Insulin Human Lispro (Humalog Low) 0 units SC ACHS [facility] PRN Reason: Protocol Last Admin: 11/16/16 07:30 Dose: Not Given Lisinopril (Zestril) 10 mg PO DAILY [facility] Last Admin: 11/16/16 09:41 Dose: 10 mg Nicotine (Nicoderm Cq) 1 patch TD DAILY [facility] Last Admin: 11/16/16 11:03 Dose: Not Given Nystatin (Nystop Topical Powder) 0 gm TOP BID [facility] Last Admin: 11/16/16 09:44 Dose: 1 applic Oxycodone HCl (Oxycodone Immediate Release Tab) 20 mg PO QID [facility] Last Admin: 11/16/16 09:47 Dose: 20 mg Pantoprazole Sodium (Protonix Ec Tab) 40 mg PO ACB [facility] Last Admin: 11/16/16 09:41 Dose: 40 mg - Labs Labs: 11/16/16 10:30 11/16/16 10:30 APTT 31.3 Seconds (23.7-30.8) H 11/11/16 07:45 - Constitutional Appears: Non-toxic, No Acute Distress - Head Exam Head Exam: ATRAUMATIC, NORMAL INSPECTION, NORMOCEPHALIC - Eye Exam Eye Exam: EOMI, PERRL - ENT Exam ENT Exam: Mucous Membranes Moist - Neck Exam Neck Exam: Normal Inspection. absent: Lymphadenopathy, Tenderness, Thyromegaly - Respiratory Exam Respiratory Exam: Clear to Ausculation Bilateral. absent: Rales, Rhonchi, Wheezes - Cardiovascular Exam Cardiovascular Exam: RRR, +S1, +S2. absent: Gallop, Rubs - GI/Abdominal Exam GI & Abdominal Exam: Soft. absent: Distended, Firm, Guarding, Rigid, Tenderness , Rebound - Neurological Exam Neurological Exam: Alert, Awake, Oriented x3 - Psychiatric Exam Psychiatric exam: Normal Affect, Normal Mood - Skin Skin Exam: Dry, Intact, Normal Color, Warm Assessment and Plan - Assessment and Plan (Free Text) Plan: 46yo male with history of diabetes mellitus type 2, hypertension and osteomyelitis presents c/o left foot ulcer complicated by edema 1. Osteomyelitis -Left Foot x-ray revealed osteomyelitis of the distal 5th metatarsal ; see full report -MRI left foot consistent with osteomyelitis of the distal 5th metatarsal and at the base of the proximal phalanx of the 5th toe; see full report -Patient currently on vancomycin and meropenem per ID recommendations -Patient is s/p left 5th metatarsal amputation; Today is POD #1; Procedure tolerated well -JOSE/PVR reviewed and within normal limits -Wound culture positive for coagulase negative staph; Blood cultures negative -ID consulted - Dr. Paul -Podiatry consulted - Dr. Jordan 2. Diabetes mellitus type 2 -Fingerstick ACHS -Consistent carb diet -Humalog ISS low dose 3. Hypertension -Continue with lisinopril/lasix 4. GI/DVT Prophylaxis -Protonix/Heparin Disposition: Patient is s/p left 5th metatarsal amputation and tolerated the procedure well. Patient to be discharged upon ID and podiatry approval. Patient seen, examined and case reviewed/discussed with attending, Dr. Butts <Hayder Butts - Last Filed: 12/16/16 08:47> Objective - Vital Signs/Intake and Output Vital Signs (last 24 hours): Temp Pulse Resp BP Pulse Ox 97.9 F 73 18 112/73 97 11/22/16 16:00 11/22/16 16:00 11/22/16 16:00 11/22/16 16:00 11/22/16 16:00 - Labs Labs: 11/21/16 05:00 11/21/16 05:00 APTT 31.3 Seconds (23.7-30.8) H 11/11/16 07:45 Attending/Attestation - Attestation I have personally seen and examined this patient.: Yes I have fully participated in the care of the patient.: Yes I have reviewed all pertinent clinical information, including history, physical exam and plan: Yes Notes (Text): 12/16/16 08:46 Medical record note made by the resident after discussion with my direction and input after the patient was personally seen and examined by me. I have reviewed the chart and agree that the record reflects my personal performance of history, physical, data review and course for the patient that I have planned.
--- NOTE | 2016-11-16 15:08 | CP.PCM.PN ---
<Beverley Gallegos - Last Filed: 11/16/16 15:16> Subjective - Date & Time of Evaluation Date of Evaluation: 11/16/16 Time of Evaluation: 15:05 - Subjective Subjective: 46 year old male with a PMHx of Diabetes Mellitus, diabetic foot ulcers, and chronic back pain seen at bedside 1 day s/p left 5th ray resection. His dressing is clean, dry, intact to LLE. He admits to some pain for his foot and his medication gives him relief. He denies any n/f/v/c/d/sob Objective - Vital Signs/Intake and Output Vital Signs (last 24 hours): Temp Pulse Resp BP Pulse Ox 98.3 F 71 20 115/74 97 11/16/16 08:57 11/16/16 09:41 11/16/16 08:57 11/16/16 09:41 11/16/16 08:57 Intake and Output: 11/16/16 11/16/16 06:59 18:59 Intake Total 1200 760 Output Total 2900 Balance -1700 760 - Medications Medications: Current Medications Acetaminophen (Tylenol 325mg Tab) 650 mg PO Q6H PRN PRN Reason: Pain, Mild (1-3) Last Admin: 11/16/16 06:43 Dose: 650 mg Carisoprodol (Soma) 350 mg PO QID [facility] Last Admin: 11/16/16 09:40 Dose: 350 mg Furosemide (Lasix) 20 mg PO DAILY [facility] Last Admin: 11/16/16 09:40 Dose: 20 mg Heparin Sodium (Porcine) (Heparin) 5,000 units SC Q8 [facility] PRN Reason: Protocol Last Admin: 11/14/16 13:29 Dose: Not Given Hydrochlorothiazide (Microzide) 12.5 mg PO DAILY [facility] Last Admin: 11/16/16 09:40 Dose: 12.5 mg Vancomycin HCl (Vancomycin 1gm) 1 gm in 250 mls @ 167 mls/hr IVPB Q12H [facility] PRN Reason: Protocol Stop: 11/25/16 07:16 Last Admin: 11/16/16 06:44 Dose: 167 mls/hr Meropenem 1g/NS 100mL IVPB (Meropenem 1g/Ns 100ml Ivpb) 1 gm in 100 mls @ 100 mls/hr IVPB Q8 [facility] PRN Reason: Protocol Stop: 11/21/16 22:01 Last Admin: 11/16/16 05:19 Dose: 100 mls/hr Insulin Human Lispro (Humalog Low) 0 units SC ACHS [facility] PRN Reason: Protocol Last Admin: 11/16/16 12:09 Dose: 2 units Lisinopril (Zestril) 10 mg PO DAILY [facility] Last Admin: 11/16/16 09:41 Dose: 10 mg Nicotine (Nicoderm Cq) 1 patch TD DAILY [facility] Last Admin: 11/16/16 11:03 Dose: Not Given Nystatin (Nystop Topical Powder) 0 gm TOP BID [facility] Last Admin: 11/16/16 09:44 Dose: 1 applic Oxycodone HCl (Oxycodone Immediate Release Tab) 20 mg PO QID [facility] Last Admin: 11/16/16 09:47 Dose: 20 mg Pantoprazole Sodium (Protonix Ec Tab) 40 mg PO ACB [facility] Last Admin: 11/16/16 09:41 Dose: 40 mg - Labs Labs: 11/16/16 10:30 11/16/16 10:30 APTT 31.3 Seconds (23.7-30.8) H 11/11/16 07:45 - Constitutional Appears: Well, Non-toxic, No Acute Distress - Extremities Exam Additional comments: Dressing to LLE clean, dry, intact - Neurological Exam Neurological Exam: Alert, Awake, Oriented x3 - Psychiatric Exam Psychiatric exam: Normal Affect, Normal Mood Assessment and Plan - Assessment and Plan (Free Text) Assessment: 46 year old male 1 day s/p 5th ray resection Plan: Patient examined and evaluated Discussed with attending, Dr. Mackay labs and vitals reviewed; afebrile, WBC 7.5 Post op radiographs reviewed Patient to be partial weight bearing to LLE in a forefoot offloading surgical shoe with crutches Continue PT Awaiting operative culture results Continue IV abx as per ID Podiatry will continue to monitor while patient remains in house <Mckenzie Mackay - Last Filed: 11/20/16 14:19> Objective - Vital Signs/Intake and Output Vital Signs (last 24 hours): Temp Pulse Resp BP Pulse Ox 98 F 67 18 117/69 97 11/20/16 08:11 11/20/16 09:53 11/20/16 08:11 11/20/16 09:53 11/20/16 08:11 Intake and Output: 11/20/16 11/20/16 06:59 18:59 Intake Total 1260 Balance 1260 - Medications Medications: Current Medications Acetaminophen (Tylenol 325mg Tab) 650 mg PO Q6H PRN PRN Reason: Pain, Mild (1-3) Last Admin: 11/16/16 06:43 Dose: 650 mg Benzocaine (Orajel Pm Maximum Strength) 1 gm MT QID PRN PRN Reason: tooth pain Last Admin: 11/18/16 10:04 Dose: 1 unit Diazepam (Valium) 5 mg PO TID [facility] PRN Reason: Protocol Last Admin: 11/20/16 09:52 Dose: 5 mg Duloxetine HCl (Cymbalta) 40 mg PO DAILY [facility] Last Admin: 11/20/16 09:51 Dose: 40 mg Furosemide (Lasix) 20 mg PO DAILY [facility] Last Admin: 11/20/16 09:51 Dose: 20 mg Heparin Sodium (Porcine) (Heparin) 5,000 units SC Q8 [facility] PRN Reason: Protocol Last Admin: 11/20/16 05:50 Dose: 5,000 units Hydrochlorothiazide (Microzide) 12.5 mg PO DAILY [facility] Last Admin: 11/20/16 09:52 Dose: 12.5 mg Vancomycin HCl (Vancomycin 1gm) 1 gm in 250 mls @ 167 mls/hr IVPB Q12H [facility] PRN Reason: Protocol Stop: 11/25/16 07:16 Last Admin: 11/20/16 06:40 Dose: 167 mls/hr Insulin Human Lispro (Humalog Low) 0 units SC ACHS [facility] PRN Reason: Protocol Last Admin: 11/20/16 07:51 Dose: 1 units Lisinopril (Zestril) 10 mg PO DAILY [facility] Last Admin: 11/20/16 09:53 Dose: 10 mg Nicotine (Nicoderm Cq) 1 patch TD DAILY [facility] Last Admin: 11/19/16 09:05 Dose: Not Given Nystatin (Nystop Topical Powder) 0 gm TOP BID [facility] Last Admin: 11/20/16 09:51 Dose: 1 applic Oxycodone HCl (Oxycodone Immediate Release Tab) 20 mg PO QID [facility] Last Admin: 11/20/16 09:52 Dose: 20 mg Pantoprazole Sodium (Protonix Ec Tab) 40 mg PO ACB [facility] Last Admin: 11/20/16 07:51 Dose: 40 mg - Labs Labs: 11/20/16 08:28 11/20/16 08:28 APTT 31.3 Seconds (23.7-30.8) H 11/11/16 07:45 Attending/Attestation - Attestation I have personally seen and examined this patient.: Yes I have fully participated in the care of the patient.: Yes I have reviewed all pertinent clinical information, including history, physical exam and plan: Yes
--- NOTE | 2016-11-16 16:49 | PN ---
DATE: 11/16/2016 SUBJECTIVE: Shortly, patient is a 46-year-old male. The patient has multiple medical prob lems. The patient was admitted for evaluation of diabetic foot ulcer. The patient is status post 2 amputations yesterday. This documentation writer was involved into the patient's care for evaluation of depressive symptoms. The patient was seen initially yesterday, followed up today. Please see my initial note for more detailed information. The patient was found today to be depressed, disengaged into the conv ersation. Answers were yes, no. There are some cognitive limitations as well. The patient reported to feel hopeless and helpless. The patient was educated about Cymbalta. Risks, benefits and altern atives of that medication were discussed with the patient. The patient verbalized understanding and patient is willing to take that medication. VITAL SIGNS: This documentation writer reviewed vital signs. Vital signs seem to be stable. MEDICATIONS: Reviewed. Soma, Cymbalta will be started today, Lasix, heparin, hydrochlorothiazide, H umulin, ____, meropenem, Nicoderm, Nystop topical powder, oxycodone, Protonix, vancomycin. LABORATORY DATA: Labs reviewed, seems to be stable. MENTAL STATUS EXAMINATION: The patient appears to be alert. Seems to be disengaged into the convers ation. Flat affect. Mood described as depressed. Affect was constricted. Thought process was cohe rent, but concrete. Thought content: The patient denied visual, auditory, or tactile hallucinations . Denied paranoid ideation. The patient denied thoughts of harming himself or others. Denied inten t or plan. Insight and judgment are fair. Impulses are well controlled. IMPRESSION: Rule out major depressive disorder. Rule out mood disorder due to general medical condi tion. The patient has multiple medical issues. Please see medical team note for more detailed infor mation. PLAN: Continue current management. Cymbalta was started today for depressive symptoms as well as an xiety symptoms and neuropathy. Neurontin was discussed with the patient. While patient is on the edical floor, we will follow up on this patient regularly. The patient denied thoughts of killing hi mself or others during the interview today. As per nursing staff, patient is compliant with medicati on and has fair appetite. I will follow up on this patient tomorrow. Should you have any questions, give me a call back. Jeannine Case MD cc: [phone] TT: 11/16/2016 16:48:32 Confirmation # [id number] Dictation # [id number] sn
--- NOTE | 2016-11-16 19:13 | CP.PCM.PN ---
Subjective - Date & Time of Evaluation Date of Evaluation: 11/16/16 Time of Evaluation: 10:15 - Subjective Subjective: Comfortable, afebrile, not in distress. Had surgery on his foot yesterday. Objective - Vital Signs/Intake and Output Vital Signs (last 24 hours): Temp Pulse Resp BP Pulse Ox 98.6 F 75 20 133/87 97 11/16/16 16:00 11/16/16 16:00 11/16/16 16:00 11/16/16 16:00 11/16/16 16:00 Intake and Output: 11/16/16 11/17/16 18:59 06:59 Intake Total 760 Balance 760 - Medications Medications: Current Medications Acetaminophen (Tylenol 325mg Tab) 650 mg PO Q6H PRN PRN Reason: Pain, Mild (1-3) Last Admin: 11/16/16 06:43 Dose: 650 mg Carisoprodol (Soma) 350 mg PO QID [facility] Last Admin: 11/16/16 19:01 Dose: 350 mg Duloxetine HCl (Cymbalta) 20 mg PO DAILY [facility] Last Admin: 11/16/16 17:07 Dose: 20 mg Furosemide (Lasix) 20 mg PO DAILY [facility] Last Admin: 11/16/16 09:40 Dose: 20 mg Heparin Sodium (Porcine) (Heparin) 5,000 units SC Q8 [facility] PRN Reason: Protocol Last Admin: 11/16/16 15:01 Dose: 5,000 units Hydrochlorothiazide (Microzide) 12.5 mg PO DAILY [facility] Last Admin: 11/16/16 09:40 Dose: 12.5 mg Vancomycin HCl (Vancomycin 1gm) 1 gm in 250 mls @ 167 mls/hr IVPB Q12H [facility] PRN Reason: Protocol Stop: 11/25/16 07:16 Last Admin: 11/16/16 06:44 Dose: 167 mls/hr Meropenem 1g/NS 100mL IVPB (Meropenem 1g/Ns 100ml Ivpb) 1 gm in 100 mls @ 100 mls/hr IVPB Q8 [facility] PRN Reason: Protocol Stop: 11/21/16 22:01 Last Admin: 11/16/16 15:04 Dose: 100 mls/hr Insulin Human Lispro (Humalog Low) 0 units SC ACHS [facility] PRN Reason: Protocol Last Admin: 11/16/16 17:03 Dose: Not Given Lisinopril (Zestril) 10 mg PO DAILY [facility] Last Admin: 11/16/16 09:41 Dose: 10 mg Nicotine (Nicoderm Cq) 1 patch TD DAILY [facility] Last Admin: 11/16/16 11:03 Dose: Not Given Nystatin (Nystop Topical Powder) 0 gm TOP BID [facility] Last Admin: 11/16/16 09:44 Dose: 1 applic Oxycodone HCl (Oxycodone Immediate Release Tab) 20 mg PO QID [facility] Last Admin: 11/16/16 18:57 Dose: 20 mg Pantoprazole Sodium (Protonix Ec Tab) 40 mg PO ACB [facility] Last Admin: 11/16/16 09:41 Dose: 40 mg - Labs Labs: 11/16/16 10:30 11/16/16 10:30 APTT 31.3 Seconds (23.7-30.8) H 11/11/16 07:45 - Constitutional Appears: Non-toxic, No Acute Distress - Head Exam Head Exam: NORMAL INSPECTION - ENT Exam ENT Exam: Mucous Membranes Moist - Neck Exam Neck Exam: absent: Lymphadenopathy, Meningismus - Respiratory Exam Respiratory Exam: Decreased Breath Sounds - Cardiovascular Exam Cardiovascular Exam: +S1, +S2 - GI/Abdominal Exam GI & Abdominal Exam: Soft. absent: Tenderness - Extremities Exam Additional comments: right foot with dressings in place Assessment and Plan - Assessment and Plan (Free Text) Plan: Assessment Acute osteomyelitis of the 5th metatarsal and 5th toe proximal phalanx associated with cellulitis S/P 5th metatarsal removal POD #1 history of Left foot skin and skin structure infection DM S/P 4th toe amputation on the left foot (for infection) multiple episodes of skin/skin structure infection of the lower extremities Plan Continue Vancomyin and Merrem pending OR cx and pathology Will continue to monitor clinically
[2016-11-17] MEDS: Meropenem 1g/NS 100mL IVPB 1 GM/100 ML PIGGYBACK IVPB SCH ×3 (05:28→21:26)
[2016-11-17] MEDS: Insulin Lispro (humaLOG) LOW Coverage SC SCH ×5 (07:09→21:55)
[2016-11-17] MEDS: Nystatin 100,000 Units/gm Topical Pow(15 gm) TOP SCH ×3 (07:10→18:06)
[2016-11-17] MEDS: Vancomycin 1gm in NS 250ml 1 GM/250 ML BAG IVPB SCH ×2 (07:33→19:39)
[2016-11-17] MEDS: Pantoprazole 40 mg EC Tab PO SCH (08:45)
[2016-11-17] MEDS: oxyCODONE 20 mg Immediate Release Tab PO SCH ×4 (10:10→21:25)
--- NOTE | 2016-11-17 10:34 | PN ---
DATE: 11/17/2016 This is a 46-year-old diabetic male seen postop 2 days of surgery on his left foot. The patient had a fifth ray amputation by Dr. Jordan on Monday morning. The patient is in bed. He does have a wedg e shoe. I did order a wedge shoe, but he does need physical therapy with crutches to have him partia l weightbear on that foot with crutches. VITAL SIGNS: Noted to be temperature of 98, the pulse is 69, the blood pressure is 127/79 and the ox ygen sat was 96%. MEDICATIONS: Noted on the SEP. LABORATORIES: Noted yesterday of a white blood cell count of 7.5. His H and H yesterday was 12.1 an d 36.7. Chemistry shows a glucose of 185 yesterday. The patient's dressing was clean, dry and intact. Upon removal of his dressing, the sutures are inta ct. There is mild edema to the foot. There is an ulceration plantar aspect, which was the cause of that ulceration of the fifth ray and at this time, everything is clean and granular. There is no deh iscence noted in the foot. The patient was seen by Dr. Case, which he said was helpful. She started him on Cymbalta for depressive syndrome as well as anxiety and neuropathy. The patient also was seen by infectious disease. We are awaiting the pathology report for final dispensation for his lower extremity. He is continuing on vancomycin and meropenem as per infectious disease, who also is awaiting the pathology. His microbiology for the OR shows no growth and that was in the anaerobic f inal and the aerobic is not noted. ASSESSMENT: A diabetic with fifth ray amputation, status post 2 days. PLAN OF TREATMENT: Dressing change was done. He may walk partial weightbearing on that left foot us ing crutches and the wedge shoe. This was discussed with the patient. The patient will be seen and followed. Mckenzie Mackay DPM cc: [id number] TT: 11/17/2016 10:33:00 Confirmation # [id number] Dictation # [id number] en
--- NOTE | 2016-11-17 15:39 | PN ---
DATE: 11/17/2016 The patient is in bed in no acute distress, nontoxic. PHYSICAL EXAMINATION: VITAL SIGNS: Temperature is 98, blood pressure is 120/70, respiratory rate of 16. HEENT: Unremarkable. NECK: Supple. LUNGS: Decreased breath sounds. HEART: Normal S1, S2. ABDOMEN: Soft, nontender. LABORATORY EXAMINATION: Reveals a white count of 7.5, hemoglobin of 12, platelets of 263. BUN of 14 , creatinine of 0.7. RPR is negative. HIV is negative. MICROBIOLOGY: Negative. ASSESSMENT AND PLAN: A 46-year-old with acute osteomyelitis of fifth metatarsal and fifth toe phalan x, associated with cellulitis, status post fifth metatarsal removal and post-procedure day #2. Curre ntly on vancomycin and meropenem. Awaiting for pathology and microbiology. We will make further rec ommendations. Holland Paul MD cc: [id number] TT: 11/17/2016 15:39:45 Confirmation # [id number] Dictation # [id number] sn
--- NOTE | 2016-11-17 17:34 | PN ---
DATE: 11/17/2016 SUBJECTIVE: The patient was followed up by this manual writer for depressive symptoms. Cymbalta was starte d yesterday. The patient was followed up today. The patient reported to tolerate medication well an d denied any side effects. The patient still reported to feeling depressed, but denied thoughts of h arming himself or others. Vital signs are stable. MEDICATIONS: Reviewed. The patient reported that pain in his leg is less. The patient is status post amputation of toe. Be sides that, there is no behavioral incident. MENTAL STATUS EXAMINATION: The patient presented to be alert and oriented, pleasant, cooperative. F air eye contact, but still patient appears to be disengaged into the conversation. Speech was underp roductive. He has no answers, sometimes intense eye contact. Mood described as "I feel less depress ed". Affect was constricted. Thought process was coherent and goal directed. Thought content: The patient denied visual, auditory, or tactile hallucinations. Denied paranoid ideation. Denied thoug hts of harming himself or others, denied intent or plan. Insight and judgment are improving. Impuls es are well controlled. IMPRESSION: Rule out mood disorder due to general medical condition, rule out major depressive disor ciara. Please see medical team notes for more detailed information about medical issues. PLAN: Cymbalta was started. This manual writer offered Neurontin as needed for insomnia. The patient decl ined that offer. The patient deemed not to be in danger to self or others. We will follow up on thi s patient accordingly and advise accordingly. Thank you very much for letting me participate in care of your patient. We will follow up with you. Jeannine Case MD cc: [phone] TT: 11/17/2016 17:33:33 Confirmation # [id number] Dictation # [id number] flaco
--- NOTE | 2016-11-17 19:06 | CP.PCM.PN ---
<Hernando Monaco - Last Filed: 11/17/16 19:03> Subjective - Date & Time of Evaluation Date of Evaluation: 11/17/16 Time of Evaluation: 19:03 - Subjective Subjective: Medicine progress note - Hernando Monaco PGY1 Patient seen and examined at bedside this morning. No acute overnight events or new complaints. Today is POD #2 of his left 5th metatarsal amputation. We are awaiting the results of his wound culture for further recommendations. Continue with meropenem and vancomycin at this time. Denies chest pain, palpitations, SOB. Objective - Vital Signs/Intake and Output Vital Signs (last 24 hours): Temp Pulse Resp BP Pulse Ox 97.7 F 72 20 152/81 H 97 11/17/16 16:00 11/17/16 16:00 11/17/16 16:00 11/17/16 16:00 11/17/16 16:00 Intake and Output: 11/17/16 11/18/16 18:59 06:59 Intake Total 960 Balance 960 - Medications Medications: Current Medications Acetaminophen (Tylenol 325mg Tab) 650 mg PO Q6H PRN PRN Reason: Pain, Mild (1-3) Last Admin: 11/16/16 06:43 Dose: 650 mg Carisoprodol (Soma) 350 mg PO QID [facility] Last Admin: 11/17/16 18:06 Dose: 350 mg Duloxetine HCl (Cymbalta) 40 mg PO DAILY [facility] Furosemide (Lasix) 20 mg PO DAILY [facility] Last Admin: 11/17/16 10:10 Dose: 20 mg Heparin Sodium (Porcine) (Heparin) 5,000 units SC Q8 [facility] PRN Reason: Protocol Last Admin: 11/17/16 14:43 Dose: 5,000 units Hydrochlorothiazide (Microzide) 12.5 mg PO DAILY [facility] Last Admin: 11/17/16 10:11 Dose: 12.5 mg Vancomycin HCl (Vancomycin 1gm) 1 gm in 250 mls @ 167 mls/hr IVPB Q12H [facility] PRN Reason: Protocol Stop: 11/25/16 07:16 Last Admin: 11/17/16 07:33 Dose: 167 mls/hr Meropenem 1g/NS 100mL IVPB (Meropenem 1g/Ns 100ml Ivpb) 1 gm in 100 mls @ 100 mls/hr IVPB Q8 [facility] PRN Reason: Protocol Stop: 11/21/16 22:01 Last Admin: 11/17/16 14:42 Dose: 100 mls/hr Insulin Human Lispro (Humalog Low) 0 units SC ACHS [facility] PRN Reason: Protocol Last Admin: 11/17/16 16:50 Dose: Not Given Lisinopril (Zestril) 10 mg PO DAILY [facility] Last Admin: 11/17/16 10:11 Dose: 10 mg Nicotine (Nicoderm Cq) 1 patch TD DAILY [facility] Last Admin: 11/17/16 10:15 Dose: Not Given Nystatin (Nystop Topical Powder) 0 gm TOP BID [facility] Last Admin: 11/17/16 18:06 Dose: 1 applic Oxycodone HCl (Oxycodone Immediate Release Tab) 20 mg PO QID [facility] Last Admin: 11/17/16 18:06 Dose: 20 mg Pantoprazole Sodium (Protonix Ec Tab) 40 mg PO ACB [facility] Last Admin: 11/17/16 08:45 Dose: 40 mg - Labs Labs: 11/16/16 10:30 11/16/16 10:30 APTT 31.3 Seconds (23.7-30.8) H 11/11/16 07:45 - Constitutional Appears: Non-toxic, No Acute Distress - Head Exam Head Exam: ATRAUMATIC, NORMAL INSPECTION, NORMOCEPHALIC - Eye Exam Eye Exam: EOMI, PERRL - ENT Exam ENT Exam: Mucous Membranes Moist - Neck Exam Neck Exam: Normal Inspection - Respiratory Exam Respiratory Exam: Clear to Ausculation Bilateral. absent: Rales, Rhonchi, Wheezes - Cardiovascular Exam Cardiovascular Exam: RRR, +S1, +S2. absent: Gallop, Rubs, Murmur - GI/Abdominal Exam GI & Abdominal Exam: Soft. absent: Distended, Firm, Guarding, Rigid, Tenderness , Rebound - Neurological Exam Neurological Exam: Alert, Awake, Oriented x3 - Psychiatric Exam Psychiatric exam: Normal Affect, Normal Mood - Skin Skin Exam: Dry, Intact, Normal Color, Warm Assessment and Plan - Assessment and Plan (Free Text) Plan: 46yo male with history of diabetes mellitus type 2, hypertension and osteomyelitis presents c/o left foot ulcer complicated by edema 1. Osteomyelitis -Left Foot x-ray revealed osteomyelitis of the distal 5th metatarsal ; see full report -MRI left foot consistent with osteomyelitis of the distal 5th metatarsal and at the base of the proximal phalanx of the 5th toe; see full report -Patient currently on vancomycin and meropenem per ID recommendations -JOSE/PVR reviewed and within normal limits -Blood cultures negative -ID consulted - Dr. Paul -Podiatry consulted - Dr. Jordan -Patient is s/p left 5th metatarsal amputation; Today is POD #2 -Awaiting wound culture results for further recommendations 2. Diabetes mellitus type 2 -Fingerstick ACHS -Consistent carb diet -Humalog ISS low dose 3. Hypertension -Continue with lisinopril/lasix 4. GI/DVT Prophylaxis -Protonix/Heparin Patient seen, examined and case reviewed/discussed with attending, Dr. Loera <Villa Loera - Last Filed: 11/18/16 09:02> Objective - Vital Signs/Intake and Output Vital Signs (last 24 hours): Temp Pulse Resp BP Pulse Ox 98.3 F 69 18 125/67 98 11/18/16 07:30 11/18/16 07:30 11/18/16 07:30 11/18/16 07:30 11/18/16 07:30 Intake and Output: 11/18/16 11/18/16 06:59 18:59 Intake Total 800 Balance 800 - Medications Medications: Current Medications Acetaminophen (Tylenol 325mg Tab) 650 mg PO Q6H PRN PRN Reason: Pain, Mild (1-3) Last Admin: 11/16/16 06:43 Dose: 650 mg Benzocaine (Orajel Pm Maximum Strength) 1 gm MT QID PRN PRN Reason: tooth pain Last Admin: 11/17/16 23:04 Dose: 1 unit Carisoprodol (Soma) 350 mg PO QID [facility] Last Admin: 11/17/16 21:25 Dose: 350 mg Duloxetine HCl (Cymbalta) 40 mg PO DAILY [facility] Furosemide (Lasix) 20 mg PO DAILY [facility] Last Admin: 11/17/16 10:10 Dose: 20 mg Heparin Sodium (Porcine) (Heparin) 5,000 units SC Q8 [facility] PRN Reason: Protocol Last Admin: 11/18/16 05:10 Dose: 5,000 units Hydrochlorothiazide (Microzide) 12.5 mg PO DAILY [facility] Last Admin: 11/17/16 10:11 Dose: 12.5 mg Vancomycin HCl (Vancomycin 1gm) 1 gm in 250 mls @ 167 mls/hr IVPB Q12H [facility] PRN Reason: Protocol Stop: 11/25/16 07:16 Last Admin: 11/18/16 06:16 Dose: 167 mls/hr Meropenem 1g/NS 100mL IVPB (Meropenem 1g/Ns 100ml [facility]) 1 gm in 100 mls @ 100 mls/hr IVPB Q8 [facility] PRN Reason: Protocol Stop: 11/21/16 22:01 Last Admin: 11/18/16 05:10 Dose: 100 mls/hr Insulin Human Lispro (Humalog Low) 0 units SC ACHS [facility] PRN Reason: Protocol Last Admin: 11/18/16 08:53 Dose: Not Given Lisinopril (Zestril) 10 mg PO DAILY [facility] Last Admin: 11/17/16 10:11 Dose: 10 mg Nicotine (Nicoderm Cq) 1 patch TD DAILY [facility] Last Admin: 11/17/16 10:15 Dose: Not Given Nystatin (Nystop Topical Powder) 0 gm TOP BID [facility] Last Admin: 11/17/16 18:06 Dose: 1 applic Oxycodone HCl (Oxycodone Immediate Release Tab) 20 mg PO QID [facility] Last Admin: 11/17/16 21:25 Dose: 20 mg Pantoprazole Sodium (Protonix Ec Tab) 40 mg PO ACB [facility] Last Admin: 11/18/16 08:53 Dose: Not Given - Labs Labs: 11/16/16 10:30 11/16/16 10:30 APTT 31.3 Seconds (23.7-30.8) H 11/11/16 07:45 Attending/Attestation - Attestation I have personally seen and examined this patient.: Yes I have fully participated in the care of the patient.: Yes I have reviewed all pertinent clinical information, including history, physical exam and plan: Yes Notes (Text): 11/18/16 09:02 Medical record note made by the resident after discussion with my direction and input after the patient was personally seen and examined by me. I have reviewed the chart and agree that the record accurately reflects by personal performance of the history, physical exam, data review, and medical decision-making, in the course for the patient. I have also personally directed the plan of care.
[2016-11-17] MEDS: Benzocaine 20% Cream(7 gm) MT PRN (23:04)
[2016-11-18] MEDS: Meropenem 1g/NS 100mL IVPB 1 GM/100 ML PIGGYBACK IVPB SCH ×3 (05:10→22:35)
[2016-11-18] MEDS: Vancomycin 1gm in NS 250ml 1 GM/250 ML BAG IVPB SCH ×2 (06:16→20:36)
--- NOTE | 2016-11-18 07:16 | CP.PCM.PN ---
<Hernando Monaco - Last Filed: 11/18/16 15:11> Subjective - Date & Time of Evaluation Date of Evaluation: 11/18/16 Time of Evaluation: 07:12 - Subjective Subjective: Medicine progress note - Hernando Monaco PGY1 Patient seen and examined at bedside this morning. No acute overnight events or new complaints. We are awaiting the results of his wound culture for further recommendations regarding the need of antibiotics. Patient is aware of current results/workup/plan and is in agreement. Denies chest pain, palpitations, SOB, abdominal pain, nausea, vomiting. Objective - Vital Signs/Intake and Output Vital Signs (last 24 hours): Temp Pulse Resp BP Pulse Ox 97.7 F 72 20 152/81 H 97 11/17/16 16:00 11/17/16 16:00 11/17/16 16:00 11/17/16 16:00 11/17/16 16:00 Intake and Output: 11/18/16 11/18/16 06:59 18:59 Intake Total 800 Balance 800 - Medications Medications: Current Medications Acetaminophen (Tylenol 325mg Tab) 650 mg PO Q6H PRN PRN Reason: Pain, Mild (1-3) Last Admin: 11/16/16 06:43 Dose: 650 mg Benzocaine (Orajel Pm Maximum Strength) 1 gm MT QID PRN PRN Reason: tooth pain Last Admin: 11/17/16 23:04 Dose: 1 unit Carisoprodol (Soma) 350 mg PO QID [facility] Last Admin: 11/17/16 21:25 Dose: 350 mg Duloxetine HCl (Cymbalta) 40 mg PO DAILY [facility] Furosemide (Lasix) 20 mg PO DAILY [facility] Last Admin: 11/17/16 10:10 Dose: 20 mg Heparin Sodium (Porcine) (Heparin) 5,000 units SC Q8 JAI PRN Reason: Protocol Last Admin: 11/18/16 05:10 Dose: 5,000 units Hydrochlorothiazide (Microzide) 12.5 mg PO DAILY [facility] Last Admin: 11/17/16 10:11 Dose: 12.5 mg Vancomycin HCl (Vancomycin 1gm) 1 gm in 250 mls @ 167 mls/hr IVPB Q12H JAI PRN Reason: Protocol Stop: 11/25/16 07:16 Last Admin: 11/18/16 06:16 Dose: 167 mls/hr Meropenem 1g/NS 100mL IVPB (Meropenem 1g/Ns 100ml Ivpb) 1 gm in 100 mls @ 100 mls/hr IVPB Q8 [facility] PRN Reason: Protocol Stop: 11/21/16 22:01 Last Admin: 11/18/16 05:10 Dose: 100 mls/hr Insulin Human Lispro (Humalog Low) 0 units SC ACHS [facility] PRN Reason: Protocol Last Admin: 11/17/16 21:55 Dose: Not Given Lisinopril (Zestril) 10 mg PO DAILY [facility] Last Admin: 11/17/16 10:11 Dose: 10 mg Nicotine (Nicoderm Cq) 1 patch TD DAILY [facility] Last Admin: 11/17/16 10:15 Dose: Not Given Nystatin (Nystop Topical Powder) 0 gm TOP BID [facility] Last Admin: 11/17/16 18:06 Dose: 1 applic Oxycodone HCl (Oxycodone Immediate Release Tab) 20 mg PO QID [facility] Last Admin: 11/17/16 21:25 Dose: 20 mg Pantoprazole Sodium (Protonix Ec Tab) 40 mg PO ACB [facility] Last Admin: 11/17/16 08:45 Dose: 40 mg - Labs Labs: 11/16/16 10:30 11/16/16 10:30 APTT 31.3 Seconds (23.7-30.8) H 11/11/16 07:45 - Constitutional Appears: Well, Non-toxic, No Acute Distress - Head Exam Head Exam: ATRAUMATIC, NORMAL INSPECTION, NORMOCEPHALIC - Eye Exam Eye Exam: EOMI, PERRL - ENT Exam ENT Exam: Mucous Membranes Moist - Neck Exam Neck Exam: Normal Inspection - Respiratory Exam Respiratory Exam: Clear to Ausculation Bilateral, NORMAL BREATHING PATTERN. absent: Rales, Rhonchi, Wheezes - Cardiovascular Exam Cardiovascular Exam: RRR, +S1, +S2. absent: Diastolic murmur, JVD, Rubs, Murmur - GI/Abdominal Exam GI & Abdominal Exam: Soft. absent: Distended, Firm, Guarding, Rigid, Tenderness , Rebound - Neurological Exam Neurological Exam: Alert, Awake, Oriented x3 - Psychiatric Exam Psychiatric exam: Normal Affect, Normal Mood - Skin Skin Exam: Dry, Intact, Normal Color, Warm Assessment and Plan - Assessment and Plan (Free Text) Plan: 46yo male with history of diabetes mellitus type 2, hypertension and osteomyelitis presents c/o left foot ulcer complicated by edema 1. Osteomyelitis of the left 5th metatarsal -Left Foot x-ray revealed osteomyelitis of the distal 5th metatarsal ; see full report -MRI left foot consistent with osteomyelitis of the distal 5th metatarsal and at the base of the proximal phalanx of the 5th toe; see full report -Patient currently on vancomycin and meropenem per ID recommendations -JOSE/PVR reviewed and within normal limits -Blood cultures negative -First wound culture revealed coag neg staph -ID consulted - Dr. Paul -Podiatry consulted - Dr. Jordan -Patient is s/p left 5th metatarsal amputation; Today is POD #3 -Awaiting second wound culture results for further recommendations 2. Diabetes mellitus type 2 -Fingerstick ACHS -Consistent carb diet -Humalog ISS low dose 3. Hypertension -Continue with lisinopril/lasix 4. GI/DVT Prophylaxis -Protonix/Heparin Disposition: Patient is doing well post left 5th metatarsal amputation. We are waiting on the wound culture results from his left 5th metatarsal amputation to determine if he will need 4-6 weeks of antibiotics post procedure. Patient seen, examined and case reviewed/discussed with attending, Dr. Loera <Villa Loera - Last Filed: 11/25/16 09:14> Objective - Vital Signs/Intake and Output Vital Signs (last 24 hours): Temp Pulse Resp BP Pulse Ox 97.9 F 73 18 112/73 97 11/22/16 16:00 11/22/16 16:00 11/22/16 16:00 11/22/16 16:00 11/22/16 16:00 - Labs Labs: 11/21/16 05:00 11/21/16 05:00 APTT 31.3 Seconds (23.7-30.8) H 11/11/16 07:45 Attending/Attestation - Attestation I have personally seen and examined this patient.: Yes I have fully participated in the care of the patient.: Yes I have reviewed all pertinent clinical information, including history, physical exam and plan: Yes Notes (Text): 11/25/16 09:14 Medical record note made by the resident after discussion with my direction and input after the patient was personally seen and examined by me. I have reviewed the chart and agree that the record accurately reflects by personal performance of the history, physical exam, data review, and medical decision-making, in the course for the patient. I have also personally directed the plan of care.
[2016-11-18] MEDS: Pantoprazole 40 mg EC Tab PO SCH (08:53)
[2016-11-18] MEDS: Insulin Lispro (humaLOG) LOW Coverage SC SCH ×3 (08:53→21:29)
[2016-11-18] MEDS: Nystatin 100,000 Units/gm Topical Pow(15 gm) TOP SCH ×2 (10:03→17:30)
[2016-11-18] MEDS: oxyCODONE 20 mg Immediate Release Tab PO SCH ×4 (10:04→21:29)
[2016-11-18] MEDS: Benzocaine 20% Cream(7 gm) MT PRN (10:04)
--- NOTE | 2016-11-18 10:31 | PN ---
DATE: 11/18/2016 The patient is in bed in no acute distress, nontoxic. PHYSICAL EXAMINATION: VITAL SIGNS: Temperature is 98, blood pressure is 125/60, respiratory rate of 18. HEENT: Unremarkable. NECK: Supple. LUNGS: Have decreased breath sounds. HEART: Normal S1, S2. ABDOMEN: Soft, nontender. LABORATORY DATA: Reveals a white count of 7.5, hemoglobin of 12. Chemistries are noted. BUN of 14, creatinine 0.7. Serology is noted. HIV is negative. RPR is negative. Pathology is pending. ASSESSMENT AND PLAN: This is a 46-year-old with acute osteomyelitis of fifth metatarsal and fifth to e phalanx associated with cellulitis, status post fifth metatarsal removal, post-procedure day #3, on vancomycin and meropenem. Awaiting for OR cultures and awaiting for pathology. Will follow closely with you. Review of the orders confirms the patient to be on vancomycin and meropenem. Holland Paul MD cc: [id number] TT: 11/18/2016 10:30:51 Confirmation # [id number] Dictation # [id number] salvador
[2016-11-18 11:18] LABS: ADD MANUAL DIFF? NO
[2016-11-18 11:19] LABS: BASO # 0.02 K/mm3 (0.0-2.0); BASO % 0.3 % (0.0-3.0); EOS # 0.1 (0.0-0.7); EOS % 1.4 % (1.5-5.0); GRAN # 4.43 (1.4-6.5); GRAN % 62.9 % (50.0-68.0); HEMATOCRIT 37.7 % (42.0-52.0); LYMPH # 1.6 (1.2-3.4); LYMPH % 23.1 % (22.0-35.0); MEAN CELL VOLUME 83.6 fL (80.0-105.0); MEAN CORPUSCULAR HEMOGLOBIN 28.2 pg (25.0-35.0); MEAN CORPUSCULAR HGB CONC 33.7 g/dl (31.0-37.0); MEAN PLATELET VOLUME 8.5 fl (7.0-11.0); MONO # 0.9 (0.1-0.6); MONO % 12.3 % (1.0-6.0); PLATELET COUNT 274 10^3/uL (120.0-450.0); RED CELL DISTRIBUTION WIDTH 13.2 % (11.5-14.5); WHITE BLOOD COUNT 7.1 10^3/ul (4.5-11.0)
[2016-11-18 11:55] LABS: BLOOD UREA NITROGEN 20 mg/dL (7-21); CALCIUM 9.3 mg/dL (8.4-10.5); CARBON DIOXIDE 32 mmol/L (21-33); CHLORIDE 96 mmol/L (98-107); GFR AFRICAN-AMERICAN > 60; GLUCOSE,RANDOM 173 mg/dL (70-110); POTASSIUM 4.8 mmol/L (3.6-5.0); SODIUM 135 mmol/L (132-148); TOTAL PROTEIN 7.2 g/dL (5.8-8.3)
[2016-11-18 11:56] LABS: ALB/GLOB RATIO 1.1 (1.1-1.8); ALKALINE PHOSPHATASE 83 U/L (38-133); ALT/SGPT 38 U/L (7-56); AST/SGOT 30 U/L (15-59); BILIRUBIN,TOTAL 0.4 mg/dL (0.2-1.3)
--- NOTE | 2016-11-18 15:11 | PN ---
DATE: 11/18/2016 Shortly, patient is a 46-year-old male, history of diabetes, hypertension, osteomyelitis, s tatus post left foot ulcer complicated by edema. The patient also status post left fifth metatarsal amputation. Today is postoperative day #3. Psych consult was called for evaluation of depressive sy mptoms. The patient was started on Cymbalta. The patient tolerated that well. At the same time, rod pat seems to be disengaged into the conversation with this web content writer. Seems to be more interested to play with video games as well as watching TV. The patient has good appetite and sleep. The patient reported that he does not feel anything being with Cymbalta or without Cymbalta. The patient was edu cated that this medication will take time to start working. The patient verbalized understanding. VITAL SIGNS: Reviewed. MEDICATIONS: Reviewed. LABORATORIES: Reviewed. MENTAL STATUS EXAMINATION: The patient appears to be alert and oriented, pleasant and cooperative. Seems to be disengaged into the conversation. Intermittent eye contact. Speech was underproductive. There is some poverty of speech. Majority of the time, patient answering yes or no. Thought proce ss was coherent, goal directed. Thought content: The patient denied visual, auditory, tactile hallu cinations. Denied paranoid ideations. The patient denied thoughts of harming himself or others, den ied intent or plan. Insight and judgment fair. Impulses well controlled. IMPRESSION: Rule out mood disorder due to general medical condition. The patient has chronic diabet es, poorly controlled. The patient has multiple medical issues. Please see medical team notes for m ore detailed information. PLAN: Continue current management. Continue Cymbalta 40 mg daily. This medication could be prescri bed by primary care physician. This medication is for depression, anxiety as well as neuropathy. As needed for insomnia, patient could have Neurontin. Meanwhile, patient poses no danger to self or ot hers, can be followed up as outpatient, but patient does not want to see psychiatrist as outpatient. Meanwhile, continue current management. This web content writer will sign off. Should you have any questions, give me a call back. Jeannine Case MD cc: [id number] TT: 11/18/2016 15:10:34 Confirmation # [id number] Dictation # [id number] en
--- NOTE | 2016-11-18 17:30 | PN ---
DATE: 11/18/2016 SUBJECTIVE: A 46-year-old morbidly obese diabetic male seen at bedside, status post left fifth ray r esection. The patient is in bed. He does have his surgical wedge shoe present. He does not offer a ny complaints and has no pain in the affected foot. VITAL SIGNS: Reveal temperature of 98.3, pulse rate of 69, blood pressure 125/67 and respiratory rat e of 18. LABORATORY DATA: Reveal a white count of 7.1, hemoglobin of 12.7, hematocrit of 37.7, platelet count of 274. Most recent microbiology report taken in the OR reveals no anaerobes isolated and no growth . The pathology report taken in the OR, resected bone shows focal acute osteomyelitis at the resecte d region. OBJECTIVE: Palpable pole pedal pulses noted bilaterally. Upon removal of the dressing, the sutures are noted to be intact. There is still some edema and mild erythema present in the entire forefoot o n his left foot. There is a resolving full thickness plantar ulceration at the plantar aspect of the resected fifth metatarsophalangeal joint. There is noted to be serous drainage. No purulence. No signs of acute cellulitis or ascending cellulitis. ASSESSMENT: Status post left fifth ray amputation. PLAN: The patient's wound was cleansed with normal sterile saline and new sterile dressing was appli ed. The patient was told that he should ambulate using the wedge shoe. All pathology report reveals acute osteomyelitis at the resected bone margins; however, I was quite aggressive with my resection of the metatarsal bone and had a separate special specimen of just resected bone submitted, but it se ems to be comingled with all of the resected bone and tissue in the pathology report. Would recommen d 2 to 4 weeks of p.o. antibiotics in lieu of IV antibiotics given the clinical findings at present t roopa. The patient will be seen and followed daily. Ulices Jordan DPM cc: [id number] TT: 11/18/2016 17:29:39 Confirmation # [id number] Dictation # [id number] flaco
[2016-11-19] MEDS: Meropenem 1g/NS 100mL IVPB 1 GM/100 ML PIGGYBACK IVPB SCH ×3 (05:24→21:44)
[2016-11-19] MEDS: Vancomycin 1gm in NS 250ml 1 GM/250 ML BAG IVPB SCH ×2 (06:41→18:17)
[2016-11-19 07:59] LABS: ADD MANUAL DIFF? NO
[2016-11-19 08:10] LABS: BASO # 0.02 K/mm3 (0.0-2.0); BASO % 0.3 % (0.0-3.0); EOS # 0.1 (0.0-0.7); EOS % 1.9 % (1.5-5.0); GRAN # 3.35 (1.4-6.5); GRAN % 52.4 % (50.0-68.0); HEMATOCRIT 37.7 % (42.0-52.0); LYMPH # 2.2 (1.2-3.4); LYMPH % 34.5 % (22.0-35.0); MEAN CELL VOLUME 83.4 fL (80.0-105.0); MEAN CORPUSCULAR HEMOGLOBIN 27.4 pg (25.0-35.0); MEAN CORPUSCULAR HGB CONC 32.9 g/dl (31.0-37.0); MEAN PLATELET VOLUME 9.3 fl (7.0-11.0); MONO # 0.7 (0.1-0.6); MONO % 10.9 % (1.0-6.0); PLATELET COUNT 308 10^3/uL (120.0-450.0); RED CELL DISTRIBUTION WIDTH 13.2 % (11.5-14.5); WHITE BLOOD COUNT 6.4 10^3/ul (4.5-11.0)
[2016-11-19 08:23] LABS: ALB/GLOB RATIO 1.1 (1.1-1.8); ALKALINE PHOSPHATASE 101 U/L (38-133); ALT/SGPT 42 U/L (7-56); AST/SGOT 34 U/L (15-59); BILIRUBIN,TOTAL 0.3 mg/dL (0.2-1.3); BLOOD UREA NITROGEN 20 mg/dL (7-21); CARBON DIOXIDE 29 mmol/L (21-33); CHLORIDE 98 mmol/L (95-110); GFR AFRICAN-AMERICAN > 60; GLUCOSE,RANDOM 198 mg/dL (70-110); POTASSIUM 4.1 mmol/L (3.6-5.0); SODIUM 134 mmol/L (132-148); TOTAL PROTEIN 6.7 g/dL (5.8-8.3)
[2016-11-19] MEDS: Insulin Lispro (humaLOG) LOW Coverage SC SCH ×5 (08:55→21:44)
[2016-11-19] MEDS: Pantoprazole 40 mg EC Tab PO SCH (08:55)
--- NOTE | 2016-11-19 08:58 | PN ---
DATE: 11/19/2016 A 46-year-old male seen at bedside for continued evaluation and management of resected fifth ray on h is left foot. The patient reports no complaints and has no pain. He is anxious to be discharged. H is surgical wedge shoe is present at bedside: VITAL SIGNS: Today reveal temperature of 98, pulse rate of 64, blood pressure of 135/87, respiratory rate of 16. LABORATORY FINDINGS: Reveal a white count of 7.1, hemoglobin of 12.7, hematocrit of 37.7, platelet c ount of 273. Microbiology report reveals coagulase-negative Staphylococcus aureus growth. Pathology report is consistent with signs of acute osteomyelitis which has been resected. OBJECTIVE: Palpable pedal pulses noted bilaterally. Surgical site presents with sutures intact. Th ere is decreasing edema and erythema of the entire left forefoot. There is a resolving plantar ulcer ation under the resected fifth metatarsophalangeal joint that it is filling in 3 dimensionally and is granular with minimal serous drainage. ASSESSMENT: Status post left first ray amputation secondary to osteomyelitis of the distal fifth met atarsal and proximal phalanx. PLAN: The patient's wound was cleansed with normal sterile saline and a new dry sterile dressing was applied. The patient is anxious to go home and has wedge shoe present which he will use to offload the front of his foot. He will follow up in the office as he does not have insurance to [facility]. Would recommend 2-4 weeks of p.o. antibiotics in lieu of IV antibiotics as patient is un able to afford the IV antibiotics as he is self-pay. The patient will be seen and followed daily. Ulices Jordan DPM cc: [id number] TT: 11/19/2016 08:57:35 Confirmation # [id number] Dictation # [id number] bea
[2016-11-19] MEDS: oxyCODONE 20 mg Immediate Release Tab PO SCH ×4 (09:01→21:45)
[2016-11-19] MEDS: Nystatin 100,000 Units/gm Topical Pow(15 gm) TOP SCH ×2 (09:05→18:53)
--- NOTE | 2016-11-19 12:40 | PN ---
DATE: 11/19/2016 The patient is in bed in no acute distress, nontoxic. PHYSICAL EXAMINATION: VITAL SIGNS: Temperature is 98, blood pressure is 116/60, respiratory rate of 20. HEENT: Unremarkable. NECK: Supple. LUNGS: Have decreased breath sounds. HEART: Normal S1, S2. ABDOMEN: Soft, nontender. LABORATORY EXAMINATION: Reveals a white count of 6.2, hemoglobin of 12, platelets of 308. Chemistri es reveal a BUN of 20, creatinine of 0.7. Vancomycin trough is 9.1. HIV is negative. Microbiology noted. Dr. Jordan's note is reviewed. Pathology from the toe shows that the margins have acute oste omyelitis. The patient has had coag-negative staph with a vancomycin trough of 9.4. The patient is on Cymbalta, meropenem and vancomycin. ASSESSMENT AND PLAN: A 46-year-old male with coagulase-negative staph of acute osteomyelitis, status post surgery with margins positive for osteomyelitis for coagulase-negative staph. The patient with obesity with a body mass index of 35. Multiple cultures positive for coagulase-negative staph. The cultures from 11/15 no anaerobes are isolated. No sensitivity done. We will follow closely with you. I will discuss with primary medical doctor. Holland Paul MD cc: [id number] TT: 11/19/2016 12:39:23 Confirmation # [id number] Dictation # [id number] tn
--- NOTE | 2016-11-19 23:59 | CP.PCM.HP ---
History of Present Illness - History of Present Illness History of Present Illness: Medicine progress note - Hernando Monaco PGY1 Patient was seen and examined this morning at bedside. No acute overnight events or new complaints reported. Past Patient History - Infectious Disease Hx of Infectious Diseases: None - Tetanus Immunizations Tetanus Immunization: Unknown - Past Medical History & Family History Past Medical History?: Yes - Past Social History Smoking Status: Heavy Smoker > 10 Cigarettes Daily - CARDIAC Hx Cardiac Disorders: Yes Hx Hypertension: No - PULMONARY Hx Respiratory Disorders: No - NEUROLOGICAL Hx Neurological Disorder: No - HEENT Hx HEENT Problems: No - RENAL Hx Chronic Kidney Disease: No - ENDOCRINE/METABOLIC Hx Diabetes Mellitus Type 2: Yes (treated) - HEMATOLOGICAL/ONCOLOGICAL Hx Blood Transfusions: No Hx Blood Transfusion Reaction: No - INTEGUMENTARY Hx Dermatological Problems: No - MUSCULOSKELETAL/RHEUMATOLOGICAL Hx Musculoskeletal Disorders: No Hx Falls: No - GASTROINTESTINAL Hx Gastrointestinal Disorders: No - GENITOURINARY/GYNECOLOGICAL Hx Genitourinary Disorders: No - PSYCHIATRIC Hx Psychophysiologic Disorder: No Hx Depression: No Hx Emotional Abuse: No Hx Physical Abuse: No Hx Substance Use: No - SURGICAL HISTORY Hx Surgeries: Yes - ANESTHESIA Hx Anesthesia Reactions: No Hx Malignant Hyperthermia: No Meds Allergies/Adverse Reactions: Allergies Allergy/AdvReac Type Severity Reaction Status Date / Time No Known Allergies Allergy Verified 07/15/16 07:01 Results - Vital Signs Recent Vital Signs: Last Vital Signs Temp 97.7 F 11/19/16 16:42 Pulse 66 11/19/16 16:42 Resp 20 11/19/16 16:42 BP 115/58 L 11/19/16 16:42 Pulse Ox 90 L 11/19/16 16:42 - Labs Result Diagrams: 11/19/16 07:57 11/19/16 07:57 Labs: Laboratory Results - last 24 hr 11/19/16 11/19/16 07:57 07:57 WBC 6.4 RBC 4.52 Hgb 12.4 L Hct 37.7 L MCV 83.4 MCH 27.4 MCHC 32.9 RDW 13.2 Plt Count 308 MPV 9.3 Gran % 52.4 Lymph % (Auto) 34.5 Izard % (Auto) 10.9 H Eos % (Auto) 1.9 Baso % (Auto) 0.3 Gran # 3.35 Lymph # 2.2 Izard # 0.7 H Eos # 0.1 Baso # 0.02 Sodium 134 Potassium 4.1 Chloride 98 Carbon Dioxide 29 Anion Gap 11 BUN 20 Creatinine 0.7 Est GFR ( Amer) > 60 Est GFR (Non-Af Amer) > 60 Random Glucose 198 H Calcium 9.0 Total Bilirubin 0.3 AST 34 ALT 42 Alkaline Phosphatase 101 Total Protein 6.7 Albumin 3.5 Globulin 3.3 Albumin/Globulin Ratio 1.1
--- NOTE | 2016-11-20 | CP.PCM.PN ---
Subjective - Date & Time of Evaluation Date of Evaluation: 11/19/16 Time of Evaluation: 10:00 - Subjective Subjective: Medicine progress note - Hernando Monaco PGY1 - 11/19/2016 Patient was seen and examined at bedside this morning. No acute overnight events or new complaints were reported. As previously noted, wound cultures/ sensitivities were pending. Today, they appear to be positive for coag negative staph. Patient will likely either need PICC line placement and IV antibiotics for 4-6 weeks or oral antibiotics if he is unable to afford IV antibiotics. Discussed with patient the current plan. Otherwise, denies chest pain, palpitations, SOB. Objective - Vital Signs/Intake and Output Vital Signs (last 24 hours): Temp Pulse Resp BP Pulse Ox 97.7 F 66 20 115/58 L 90 L 11/19/16 16:42 11/19/16 16:42 11/19/16 16:42 11/19/16 16:42 11/19/16 16:42 Intake and Output: 11/19/16 11/20/16 18:59 06:59 Intake Total 840 780 Balance 840 780 - Medications Medications: Current Medications Acetaminophen (Tylenol 325mg Tab) 650 mg PO Q6H PRN PRN Reason: Pain, Mild (1-3) Last Admin: 11/16/16 06:43 Dose: 650 mg Benzocaine (Orajel Pm Maximum Strength) 1 gm MT QID PRN PRN Reason: tooth pain Last Admin: 11/18/16 10:04 Dose: 1 unit Diazepam (Valium) 5 mg PO TID [facility]AI PRN Reason: Protocol Last Admin: 11/19/16 17:00 Dose: 5 mg Duloxetine HCl (Cymbalta) 40 mg PO DAILY [facility] Last Admin: 11/19/16 09:01 Dose: 40 mg Furosemide (Lasix) 20 mg PO DAILY [facility] Last Admin: 11/19/16 09:02 Dose: 20 mg Heparin Sodium (Porcine) (Heparin) 5,000 units SC Q8 [facility]AI PRN Reason: Protocol Last Admin: 11/19/16 21:45 Dose: 5,000 units Hydrochlorothiazide (Microzide) 12.5 mg PO DAILY [facility] Last Admin: 11/19/16 09:01 Dose: 12.5 mg Vancomycin HCl (Vancomycin 1gm) 1 gm in 250 mls @ 167 mls/hr IVPB Q12H [facility]AI PRN Reason: Protocol Stop: 11/25/16 07:16 Last Admin: 11/19/16 18:17 Dose: 167 mls/hr Meropenem 1g/NS 100mL IVPB (Meropenem 1g/Ns 100ml Ivpb) 1 gm in 100 mls @ 100 mls/hr IVPB Q8 [facility]AI PRN Reason: Protocol Stop: 11/21/16 22:01 Last Admin: 11/19/16 21:44 Dose: 100 mls/hr Insulin Human Lispro (Humalog Low) 0 units SC ACHS [facility] PRN Reason: Protocol Last Admin: 11/19/16 21:44 Dose: Not Given Lisinopril (Zestril) 10 mg PO DAILY [facility] Last Admin: 11/19/16 09:01 Dose: 10 mg Nicotine (Nicoderm Cq) 1 patch TD DAILY [facility] Last Admin: 11/19/16 09:05 Dose: Not Given Nystatin (Nystop Topical Powder) 0 gm TOP BID [facility] Last Admin: 11/19/16 18:53 Dose: Not Given Oxycodone HCl (Oxycodone Immediate Release Tab) 20 mg PO QID [facility] Last Admin: 11/19/16 21:45 Dose: 20 mg Pantoprazole Sodium (Protonix Ec Tab) 40 mg PO ACB [facility] Last Admin: 11/19/16 08:55 Dose: 40 mg - Labs Labs: 11/19/16 07:57 11/19/16 07:57 APTT 31.3 Seconds (23.7-30.8) H 11/11/16 07:45 - Constitutional Appears: Non-toxic, No Acute Distress - Head Exam Head Exam: ATRAUMATIC, NORMAL INSPECTION, NORMOCEPHALIC - Eye Exam Eye Exam: EOMI, PERRL - ENT Exam ENT Exam: Mucous Membranes Moist - Neck Exam Neck Exam: Normal Inspection - Respiratory Exam Respiratory Exam: Clear to Ausculation Bilateral. absent: Rales, Rhonchi, Wheezes - Cardiovascular Exam Cardiovascular Exam: RRR, +S1, +S2. absent: Gallop, JVD, Rubs, Murmur - GI/Abdominal Exam GI & Abdominal Exam: Soft. absent: Distended, Firm, Guarding, Rigid, Tenderness , Organomegaly, Rebound - Neurological Exam Neurological Exam: Alert, Awake, Oriented x3 - Psychiatric Exam Psychiatric exam: Normal Affect, Normal Mood - Skin Skin Exam: Dry, Intact, Normal Color, Warm Assessment and Plan - Assessment and Plan (Free Text) Plan: 46yo male with history of diabetes mellitus type 2, hypertension and osteomyelitis presents c/o left foot ulcer complicated by edema 1. Osteomyelitis of the left 5th metatarsal -Left Foot x-ray revealed osteomyelitis of the distal 5th metatarsal ; see full report -MRI left foot consistent with osteomyelitis of the distal 5th metatarsal and at the base of the proximal phalanx of the 5th toe; see full report -Patient currently on vancomycin and meropenem per ID recommendations -JOSE/PVR reviewed and within normal limits -Blood cultures negative -Specimen wound culture revealed coag neg staph -Patient is s/p left 5th metatarsal amputation; Today is POD #4 -ID consulted - Dr. Paul -Podiatry consulted - Dr. Jordan 2. Diabetes mellitus type 2 -Fingerstick ACHS -Consistent carb diet -Humalog ISS low dose 3. Hypertension -Continue with lisinopril/lasix 4. GI/DVT Prophylaxis -Protonix/Heparin Disposition: Discharge plan to be discussed with ID and podiatry regarding choice of antibiotics given wound culture is positive for coag neg staph. Results of the wound culture were discussed with the patient.
[2016-11-20] MEDS: Meropenem 1g/NS 100mL IVPB 1 GM/100 ML PIGGYBACK IVPB SCH (05:50)
[2016-11-20] MEDS: Vancomycin 1gm in NS 250ml 1 GM/250 ML BAG IVPB SCH ×2 (06:40→18:14)
[2016-11-20] MEDS: Pantoprazole 40 mg EC Tab PO SCH (07:51)
[2016-11-20] MEDS: Insulin Lispro (humaLOG) LOW Coverage SC SCH ×4 (07:51→21:27)
[2016-11-20 08:31] LABS: ADD MANUAL DIFF? NO
[2016-11-20 08:45] LABS: ALB/GLOB RATIO 1.1 (1.1-1.8); ALKALINE PHOSPHATASE 96 U/L (38-133); ALT/SGPT 47 U/L (7-56); AST/SGOT 35 U/L (15-59); BILIRUBIN,TOTAL 0.4 mg/dL (0.2-1.3); BLOOD UREA NITROGEN 19 mg/dL (7-21); CALCIUM 9.4 mg/dL (8.4-10.5); CARBON DIOXIDE 31 mmol/L (21-33); CHLORIDE 97 mmol/L (95-110); GFR AFRICAN-AMERICAN > 60; GLUCOSE,RANDOM 141 mg/dL (70-110); POTASSIUM 4.5 mmol/L (3.6-5.0); SODIUM 136 mmol/L (132-148)
[2016-11-20] MEDS: Nystatin 100,000 Units/gm Topical Pow(15 gm) TOP SCH ×2 (09:51→21:41)
[2016-11-20] MEDS: oxyCODONE 20 mg Immediate Release Tab PO SCH ×4 (09:52→21:27)
[2016-11-20 10:11] LABS: BASO # 0.03 K/mm3 (0.0-2.0); BASO % 0.4 % (0.0-3.0); EOS # 0.1 (0.0-0.7); GRAN # 3.85 (1.4-6.5); GRAN % 55.2 % (50.0-68.0); HEMATOCRIT 38.8 % (42.0-52.0); LYMPH # 2.2 (1.2-3.4); LYMPH % 32.1 % (22.0-35.0); MEAN CELL VOLUME 84.7 fL (80.0-105.0); MEAN CORPUSCULAR HEMOGLOBIN 28.4 pg (25.0-35.0); MEAN CORPUSCULAR HGB CONC 33.5 g/dl (31.0-37.0); MEAN PLATELET VOLUME 9.4 fl (7.0-11.0); MONO # 0.7 (0.1-0.6); MONO % 10.3 % (1.0-6.0); PLATELET COUNT 321 10^3/uL (120.0-450.0); RED CELL DISTRIBUTION WIDTH 13.4 % (11.5-14.5)
--- NOTE | 2016-11-20 11:54 | PN ---
DATE: 11/20/2016 SUBJECTIVE: The patient was seen in room 566. No fevers and chills. PHYSICAL EXAMINATION: VITAL SIGNS: Temperature is 98, blood pressure is 117/70, respiratory rate of 16. HEENT: Unremarkable. NECK: Supple. LUNGS: Have decreased breath sounds. HEART: Normal S1, S2. ABDOMEN: Soft, nontender. LABORATORY DATA: Reveals a white count of 7, hemoglobin 13 and platelets of 321, BUN of 19, creatini ne of 0.8. Toxicology is noted. RPR is negative. HIV is negative. Microbiology is noted. ASSESSMENT AND PLAN: This is a 46-year-old male with coagulase-negative staphylococcus, acute osteom yelitis status post surgery, margins positive for osteomyelitis with coagulase-negative staphylococci , obesity, body mass index of 35, multiple cultures positive for coagulase-negative staphylococci. Cu rrently the patient is on Cymbalta, which would make the use of Zyvox not possible. The patient is a lso on meropenem and intravenous vancomycin. We will discontinue the meropenem. We will need 4 week s of intravenous vancomycin with a weekly CBC, SMA-18, sed rate, C-reactive protein and vancomycin tr ough level once weekly. The patient's vancomycin trough level on the 2nd was 9.4. Review of the med ications reveals the patient to be on vancomycin at 7:15. We will order another vancomycin trough [facility] for tomorrow at 6:15. Today is day #5 of 28 days of vancomycin. Holland Paul MD cc: [id number] TT: 11/20/2016 11:53:21 Confirmation # [id number] Dictation # [id number]
[2016-11-20] MEDS: Benzocaine 20% Cream(7 gm) MT PRN (22:23)
[2016-11-21] MEDS: Vancomycin 1gm in NS 250ml 1 GM/250 ML BAG IVPB SCH ×2 (06:14→18:19)
[2016-11-21 06:37] LABS: ADD MANUAL DIFF? NO
--- NOTE | 2016-11-21 07:10 | CP.PCM.PN ---
<Carole Fernando - Last Filed: 11/21/16 13:40> Subjective - Date & Time of Evaluation Date of Evaluation: 11/21/16 Time of Evaluation: 07:00 - Subjective Subjective: Medicine progress note for Dr Butts/ Dr Loera service. Patient seen, and examined at bedside. No overnight acute events. Patient reports feeling well, denies chest pain, sob, headache or dizziness. Patient denies pain, reports he is able to get up and walk to the bathroom. Denies n/v/ d. Objective - Vital Signs/Intake and Output Vital Signs (last 24 hours): Temp Pulse Resp BP Pulse Ox 97.6 F 76 20 132/79 95 11/20/16 15:58 11/20/16 15:58 11/20/16 15:58 11/20/16 15:58 11/20/16 15:58 Intake and Output: 11/21/16 11/21/16 06:59 18:59 Intake Total 1560 Balance 1560 - Medications Medications: Current Medications Acetaminophen (Tylenol 325mg Tab) 650 mg PO Q6H PRN PRN Reason: Pain, Mild (1-3) Last Admin: 11/16/16 06:43 Dose: 650 mg Benzocaine (Orajel Pm Maximum Strength) 1 gm MT QID PRN PRN Reason: tooth pain Last Admin: 11/20/16 22:23 Dose: 1 unit Diazepam (Valium) 5 mg PO TID [facility] PRN Reason: Protocol Last Admin: 11/20/16 18:02 Dose: 5 mg Duloxetine HCl (Cymbalta) 40 mg PO DAILY [facility] Last Admin: 11/20/16 09:51 Dose: 40 mg Furosemide (Lasix) 20 mg PO DAILY [facility] Last Admin: 11/20/16 09:51 Dose: 20 mg Heparin Sodium (Porcine) (Heparin) 5,000 units SC Q8 [facility] PRN Reason: Protocol Last Admin: 11/21/16 06:14 Dose: 5,000 units Hydrochlorothiazide (Microzide) 12.5 mg PO DAILY [facility] Last Admin: 11/20/16 09:52 Dose: 12.5 mg Vancomycin HCl (Vancomycin 1gm) 1 gm in 250 mls @ 167 mls/hr IVPB Q12H [facility] PRN Reason: Protocol Stop: 11/25/16 07:16 Last Admin: 11/21/16 06:14 Dose: 167 mls/hr Insulin Human Lispro (Humalog Low) 0 units SC ACHS [facility] PRN Reason: Protocol Last Admin: 11/20/16 21:27 Dose: Not Given Lisinopril (Zestril) 10 mg PO DAILY [facility] Last Admin: 11/20/16 09:53 Dose: 10 mg Nicotine (Nicoderm Cq) 1 patch TD DAILY [facility] Last Admin: 11/20/16 09:57 Dose: Not Given Nystatin (Nystop Topical Powder) 0 gm TOP BID [facility] Last Admin: 11/20/16 21:41 Dose: 1 applic Oxycodone HCl (Oxycodone Immediate Release Tab) 20 mg PO QID [facility] Last Admin: 11/20/16 21:27 Dose: 20 mg Pantoprazole Sodium (Protonix Ec Tab) 40 mg PO ACB [facility] Last Admin: 11/20/16 07:51 Dose: 40 mg - Labs Labs: 11/20/16 08:28 11/20/16 08:28 APTT 31.3 Seconds (23.7-30.8) H 11/11/16 07:45 - Constitutional Appears: No Acute Distress - Head Exam Head Exam: ATRAUMATIC, NORMAL INSPECTION, NORMOCEPHALIC - Eye Exam Eye Exam: Normal appearance. absent: Scleral icterus - ENT Exam ENT Exam: Mucous Membranes Moist - Neck Exam Neck Exam: Normal Inspection - Respiratory Exam Respiratory Exam: Clear to Ausculation Bilateral, NORMAL BREATHING PATTERN. absent: Rhonchi, Wheezes, Respiratory Distress, Stridor - Cardiovascular Exam Cardiovascular Exam: REGULAR RHYTHM, RRR, +S1, +S2. absent: Irregular Rhythm, Murmur - GI/Abdominal Exam GI & Abdominal Exam: Soft, Normal Bowel Sounds. absent: Distended, Guarding, Rigid, Tenderness - Extremities Exam Extremities Exam: absent: Pedal Edema - Back Exam Back Exam: NORMAL INSPECTION - Neurological Exam Neurological Exam: Alert, Awake, Oriented x3 - Psychiatric Exam Psychiatric exam: Normal Affect, Normal Mood - Skin Skin Exam: Dry, Warm Additional comments: Left foot with clean dressing. No erythema or edema in the surrounding area. + 2 popliteal artery pulses b/l. Assessment and Plan - Assessment and Plan (Free Text) Assessment: Patient is a 46 yo with PMH of diabetes mellitus type 2, hypertension and osteomyelitis admitted with osteomyolitis of the left foot, s/p amputation. Plan: 1) Osteomyelitis of the left 5th metatarsal 2nd to diabetic mellitus - JOSE/PVR within normal limit - s/p left 5th metatarsal amputation, POD#5 - Repeat culture of the surrounding tissue growing coagulase negative staph. - ID and salesperson hosiery following - Eneida was d/chino by ID on 10/21 - currently on Vanco, will need vanco for 4 weeks as per ID - oxycodone and Tylenol prn for pain 2) Normocytic anemia - likely iotrogenic/dilution - No signs of active bleeding - will monitor for now 3) DM - ISS - diabetic diet, - Fingerstick AC/HS 4) HTN - Continue with lasix, hctz, and lisinopril. 5)Anxiety/depression- on cymbalta and Valium 6) Tobacco use: continue nicotine patch 7) DVT/GIprophylaxis: on heparin sc , and protonix. 8) Dispo: Patient will need 4 weeks of antibiotics, no insurance, will speak to the geriatric social worker/case investigator and ID. Patient seen, examined, and discussed with Dr Loera. <Villa Loera - Last Filed: 11/25/16 09:17> Objective - Vital Signs/Intake and Output Vital Signs (last 24 hours): Temp Pulse Resp BP Pulse Ox 97.9 F 73 18 112/73 97 11/22/16 16:00 11/22/16 16:00 11/22/16 16:00 11/22/16 16:00 11/22/16 16:00 - Labs Labs: 11/21/16 05:00 11/21/16 05:00 APTT 31.3 Seconds (23.7-30.8) H 11/11/16 07:45 Attending/Attestation - Attestation I have personally seen and examined this patient.: Yes I have fully participated in the care of the patient.: Yes I have reviewed all pertinent clinical information, including history, physical exam and plan: Yes Notes (Text): 11/25/16 09:17 Medical record note made by the resident after discussion with my direction and input after the patient was personally seen and examined by me. I have reviewed the chart and agree that the record accurately reflects by personal performance of the history, physical exam, data review, and medical decision-making, in the course for the patient. I have also personally directed the plan of care.
[2016-11-21 07:11] LABS: ALB/GLOB RATIO 1.1 (1.1-1.8); ALKALINE PHOSPHATASE 78 U/L (38-133); ALT/SGPT 48 U/L (7-56); AST/SGOT 25 U/L (15-59); BILIRUBIN,TOTAL 0.6 mg/dL (0.2-1.3); BLOOD UREA NITROGEN 20 mg/dL (7-21); CALCIUM 9.1 mg/dL (8.4-10.5); CARBON DIOXIDE 29 mmol/L (21-33); CHLORIDE 95 mmol/L (98-107); GFR AFRICAN-AMERICAN > 60; GLUCOSE,RANDOM 227 mg/dL (70-110); POTASSIUM 4.2 mmol/L (3.6-5.0); SODIUM 134 mmol/L (132-148); TOTAL PROTEIN 6.9 g/dL (5.8-8.3)
[2016-11-21 07:46] LABS: BASO # 0.03 K/mm3 (0.0-2.0); BASO % 0.4 % (0.0-3.0); EOS # 0.1 (0.0-0.7); EOS % 1.6 % (1.5-5.0); GRAN % 55.3 % (50.0-68.0); HEMATOCRIT 36.7 % (42.0-52.0); LYMPH # 2.1 (1.2-3.4); LYMPH % 30.4 % (22.0-35.0); MEAN CELL VOLUME 85.2 fL (80.0-105.0); MEAN CORPUSCULAR HEMOGLOBIN 27.6 pg (25.0-35.0); MEAN CORPUSCULAR HGB CONC 32.4 g/dl (31.0-37.0); MEAN PLATELET VOLUME 9.6 fl (7.0-11.0); MONO # 0.9 (0.1-0.6); MONO % 12.3 % (1.0-6.0); PLATELET COUNT 308 10^3/uL (120.0-450.0); RED CELL DISTRIBUTION WIDTH 13.3 % (11.5-14.5); WHITE BLOOD COUNT 7.1 10^3/ul (4.5-11.0)
[2016-11-21] MEDS: Insulin Lispro (humaLOG) LOW Coverage SC SCH ×4 (08:06→22:14)
[2016-11-21] MEDS: oxyCODONE 20 mg Immediate Release Tab PO SCH ×4 (09:23→21:19)
[2016-11-21] MEDS: Pantoprazole 40 mg EC Tab PO SCH (09:24)
[2016-11-21] MEDS: Nystatin 100,000 Units/gm Topical Pow(15 gm) TOP SCH ×2 (09:27→17:16)
--- NOTE | 2016-11-21 15:24 | PN ---
DATE: 11/21/2016 This is a 46-year-old diabetic male seen at bedside for followup of a left foot surgery. The patient had amputation of the fifth toe and metatarsal by Dr. Jordan approximately 1 week ago. The patient' s pathology was received today. The pathology is positive for acute osteomyelitis of the toe. The p osmin has been seen by ID. ID is recommending 4 weeks of IV antibiotics, 4 weeks should be with van co. However, patient has no insurance and is not eligible for kayy care. Thus, I spoke with the window caser. They are trying to get patient Parvez with special help from the company. This is pending at this time. Thus, we will hold off on a PICC line. In the meantime, the wound had some dr diaz coming from it. There is a wound on the plantar aspect of the foot with nonviable tissue in i t and with a suture removal kit, the wound was explored and it went right into the space of the resected bone. There was a small amount of red serous drainage coming from that area. This is proba angie the source of the drainage that was noted on the dressing. That area was flushed with saline. W e did put some packing in to keep it open. The sutures are all intact. There is no cellulitis. The re is still some edema to the foot and leg as noted. The patient has a coag negative staph on cultur e. LABORATORY DATA: His labs are 7.1 white blood cell count. The H and H is 11.9 and 36.7. His chemis try shows glucose of 22 and his BUN and creatinine is normal at 20 and 0.7. ASSESSMENT: A diabetic male with neuropathy, acute osteomyelitis of the left foot, status post amput ation. PLAN OF TREATMENT: IV antibiotics as per infectious disease. Local care as noted above. The patien t will continue offloading with the wedge shoe and crutches and he will be seen and followed. Mckenzie Mackay DPM cc: [id number] TT: 11/21/2016 15:23:54 Confirmation # [id number] Dictation # [id number] sn
--- NOTE | 2016-11-21 16:17 | PN ---
DATE: 11/21/2016 The patient is in bed in no acute distress. PHYSICAL EXAMINATION: VITAL SIGNS: Temperature is 97, blood pressure is 111/70, respiratory rate of 18. HEENT: Unremarkable. NECK: Supple. LUNGS: Decreased breath sounds. HEART: Normal S1, S2. ABDOMEN: Soft, nontender. LABORATORY EXAMINATION: Reveals a white count of 7.1, hemoglobin 11. Chemistries noted. BUN of 20, creatinine of 0.7. Toxicology is noted. Serology is reviewed. Microbiology is noted. ASSESSMENT AND PLAN: A 46-year-old male with coagulase negative staph acute osteomyelitis status pos t surgery. Margins are positive for osteomyelitis in this patient with obesity, body mass index of 3 5. Multiple cultures are coag negative staph. The patient is also on Cymbalta which makes Zyvox les s possible to use. Currently on vancomycin. Will need 4 weeks with a CBC, SMA-18, sed rate, C-react konrad protein and sed rate and vancomycin trough once weekly. Local wound care. Holland Paul MD cc: [id number] TT: 11/21/2016 16:16:44 Confirmation # [id number] Dictation # [id number] sn
--- NOTE | 2016-11-21 17:22 | CP.PCM.PN ---
<RosyBeverley - Last Filed: 11/21/16 17:18> Subjective - Date & Time of Evaluation Date of Evaluation: 11/21/16 Time of Evaluation: 17:18 - Subjective Subjective: patient seen walking in [address] without surgical shoe to left foot. Stressed importance of wearing forefoot offloading shoe at all times when ambulating. Objective - Vital Signs/Intake and Output Vital Signs (last 24 hours): Temp Pulse Resp BP Pulse Ox 97.9 F 74 20 106/64 97 11/21/16 16:00 11/21/16 16:00 11/21/16 16:00 11/21/16 16:00 11/21/16 16:00 Intake and Output: 11/21/16 11/21/16 06:59 18:59 Intake Total 1560 1260 Balance 1560 1260 - Medications Medications: Current Medications Acetaminophen (Tylenol 325mg Tab) 650 mg PO Q6H PRN PRN Reason: Pain, Mild (1-3) Last Admin: 11/16/16 06:43 Dose: 650 mg Benzocaine (Orajel Pm Maximum Strength) 1 gm MT QID PRN PRN Reason: tooth pain Last Admin: 11/20/16 22:23 Dose: 1 unit Diazepam (Valium) 5 mg PO TID [facility] PRN Reason: Protocol Last Admin: 11/21/16 17:15 Dose: 5 mg Duloxetine HCl (Cymbalta) 40 mg PO DAILY [facility] Last Admin: 11/21/16 09:23 Dose: 40 mg Furosemide (Lasix) 20 mg PO DAILY [facility] Last Admin: 11/21/16 09:23 Dose: 20 mg Heparin Sodium (Porcine) (Heparin) 5,000 units SC Q8 [facility] PRN Reason: Protocol Last Admin: 11/21/16 13:26 Dose: 5,000 units Hydrochlorothiazide (Microzide) 12.5 mg PO DAILY [facility] Last Admin: 11/21/16 09:23 Dose: 12.5 mg Vancomycin HCl (Vancomycin 1gm) 1 gm in 250 mls @ 167 mls/hr IVPB Q12H [facility] PRN Reason: Protocol Stop: 11/25/16 07:16 Last Admin: 11/21/16 06:14 Dose: 167 mls/hr Insulin Human Lispro (Humalog Low) 0 units SC ACHS [facility] PRN Reason: Protocol Last Admin: 11/21/16 17:16 Dose: Not Given Lisinopril (Zestril) 10 mg PO DAILY [facility] Last Admin: 11/21/16 09:24 Dose: 10 mg Nicotine (Nicoderm Cq) 1 patch TD DAILY [facility] Last Admin: 11/21/16 09:26 Dose: Not Given Nystatin (Nystop Topical Powder) 0 gm TOP BID [facility] Last Admin: 11/21/16 17:16 Dose: 1 applic Oxycodone HCl (Oxycodone Immediate Release Tab) 20 mg PO QID [facility] Last Admin: 11/21/16 17:15 Dose: 20 mg Pantoprazole Sodium (Protonix Ec Tab) 40 mg PO ACB [facility] Last Admin: 11/21/16 09:24 Dose: 40 mg - Labs Labs: 11/21/16 05:00 11/21/16 05:00 APTT 31.3 Seconds (23.7-30.8) H 11/11/16 07:45 <Mckenzie Mackay - Last Filed: 12/18/16 16:31> Objective - Vital Signs/Intake and Output Vital Signs (last 24 hours): Temp Pulse Resp BP Pulse Ox 97.9 F 73 18 112/73 97 11/22/16 16:00 11/22/16 16:00 11/22/16 16:00 11/22/16 16:00 11/22/16 16:00 - Labs Labs: 11/21/16 05:00 11/21/16 05:00 APTT 31.3 Seconds (23.7-30.8) H 11/11/16 07:45 Attending/Attestation - Attestation I have personally seen and examined this patient.: Yes I have fully participated in the care of the patient.: Yes I have reviewed all pertinent clinical information, including history, physical exam and plan: Yes
[2016-11-22] MEDS: Vancomycin 1gm in NS 250ml 1 GM/250 ML BAG IVPB SCH (06:15)
[2016-11-22] MEDS: Insulin Lispro (humaLOG) LOW Coverage SC SCH ×3 (08:52→16:53)
[2016-11-22] MEDS: Pantoprazole 40 mg EC Tab PO SCH (08:53)
--- NOTE | 2016-11-22 10:05 | CP.PCM.PN ---
<Carole Fernando - Last Filed: 11/22/16 13:13> Subjective - Date & Time of Evaluation Date of Evaluation: 11/22/16 Time of Evaluation: 07:35 - Subjective Subjective: Medicine progress note for Dr Butts/Dr Loera service Patient in no acute distress. Patient denies cp, sob, headache or dizziness. Patient denies n/v/d. Patient would prefer outpatient po antibiotics instead of IV. Patient also express the fact that he can't afford to pay for the antibiotic. Objective - Vital Signs/Intake and Output Vital Signs (last 24 hours): Temp Pulse Resp BP Pulse Ox 97.8 F 68 20 135/85 96 11/22/16 07:30 11/22/16 07:30 11/22/16 07:30 11/22/16 07:30 11/22/16 07:30 Intake and Output: 11/22/16 11/22/16 06:59 18:59 Intake Total 1590 Balance 1590 - Medications Medications: Current Medications Acetaminophen (Tylenol 325mg Tab) 650 mg PO Q6H PRN PRN Reason: Pain, Mild (1-3) Last Admin: 11/16/16 06:43 Dose: 650 mg Benzocaine (Orajel Pm Maximum Strength) 1 gm MT QID PRN PRN Reason: tooth pain Last Admin: 11/20/16 22:23 Dose: 1 unit Diazepam (Valium) 5 mg PO TID [facility] PRN Reason: Protocol Last Admin: 11/21/16 17:15 Dose: 5 mg Duloxetine HCl (Cymbalta) 40 mg PO DAILY [facility] Last Admin: 11/21/16 09:23 Dose: 40 mg Furosemide (Lasix) 20 mg PO DAILY [facility] Last Admin: 11/21/16 09:23 Dose: 20 mg Heparin Sodium (Porcine) (Heparin) 5,000 units SC Q8 [facility] PRN Reason: Protocol Last Admin: 11/22/16 06:16 Dose: 5,000 units Hydrochlorothiazide (Microzide) 12.5 mg PO DAILY [facility] Last Admin: 11/21/16 09:23 Dose: 12.5 mg Vancomycin HCl (Vancomycin 1gm) 1 gm in 250 mls @ 167 mls/hr IVPB Q12H [facility] PRN Reason: Protocol Stop: 11/25/16 07:16 Last Admin: 11/22/16 06:15 Dose: 167 mls/hr Insulin Human Lispro (Humalog Low) 0 units SC ACHS [facility] PRN Reason: Protocol Last Admin: 11/22/16 08:52 Dose: 1 units Lisinopril (Zestril) 10 mg PO DAILY [facility] Last Admin: 11/21/16 09:24 Dose: 10 mg Nicotine (Nicoderm Cq) 1 patch TD DAILY [facility] Last Admin: 11/21/16 09:26 Dose: Not Given Nystatin (Nystop Topical Powder) 0 gm TOP BID [facility] Last Admin: 11/21/16 17:16 Dose: 1 applic Oxycodone HCl (Oxycodone Immediate Release Tab) 20 mg PO QID [facility] Last Admin: 11/21/16 21:19 Dose: 20 mg Pantoprazole Sodium (Protonix Ec Tab) 40 mg PO ACB [facility] Last Admin: 11/22/16 08:53 Dose: 40 mg - Labs Labs: 11/21/16 05:00 11/21/16 05:00 APTT 31.3 Seconds (23.7-30.8) H 11/11/16 07:45 - Constitutional Appears: No Acute Distress - Head Exam Head Exam: ATRAUMATIC, NORMAL INSPECTION, NORMOCEPHALIC - Eye Exam Eye Exam: Normal appearance. absent: Scleral icterus - ENT Exam ENT Exam: Mucous Membranes Moist - Neck Exam Neck Exam: Normal Inspection - Respiratory Exam Respiratory Exam: Clear to Ausculation Bilateral, NORMAL BREATHING PATTERN. absent: Rales, Rhonchi, Wheezes, Respiratory Distress, Stridor - Cardiovascular Exam Cardiovascular Exam: REGULAR RHYTHM, RRR. absent: Irregular Rhythm, Murmur - GI/Abdominal Exam GI & Abdominal Exam: Soft, Normal Bowel Sounds. absent: Rigid, Tenderness - Extremities Exam Extremities Exam: absent: Pedal Edema - Back Exam Back Exam: NORMAL INSPECTION - Neurological Exam Neurological Exam: Alert, Awake, Oriented x3 - Psychiatric Exam Psychiatric exam: Normal Affect, Normal Mood - Skin Skin Exam: Dry, Normal Color, Warm Additional comments: Clean dressing on the left foot, + 2 popliteal artery pulse Assessment and Plan - Assessment and Plan (Free Text) Assessment: Patient is a 46 yo with PMH of diabetes mellitus type 2, hypertension admitted with osteomyolitis of the left foot, s/p amputation. Plan: 1) Osteomyelitis of the left 5th metatarsal 2nd to diabetic mellitus - JOSE/PVR was within normal limit - s/p left 5th metatarsal amputation, POD#6 - Repeat culture of the surrounding tissue growing coagulase negative staph. - ID and drafting clerk following - s/p renae, currently on Vanco, will need vanco for 4 weeks as per ID 2) Normocytic anemia - likely iotrogenic/dilution - No signs of active bleeding - will monitor for now 3) DM - ISS - diabetic diet, - Fingerstick AC/HS 4) HTN - Continue with lasix, hctz, and lisinopril. 5) Anxiety/depression- on cymbalta and Valium 6) Tobacco use: continue nicotine patch 7) DVT/GIprophylaxis: on heparin sc , and protonix. 8) Dispo: Patient has no insurance, requires 4 weeks of antibiotics, but is unable to afford it. brood station manager working on getting him Parvez, pending approval. Patient seen, examined, and case discussed with Dr Butts. <Hayder Butts - Last Filed: 12/16/16 08:47> Objective - Vital Signs/Intake and Output Vital Signs (last 24 hours): Temp Pulse Resp BP Pulse Ox 97.9 F 73 18 112/73 97 11/22/16 16:00 11/22/16 16:00 11/22/16 16:00 11/22/16 16:00 11/22/16 16:00 - Labs Labs: 11/21/16 05:00 11/21/16 05:00 APTT 31.3 Seconds (23.7-30.8) H 11/11/16 07:45 Attending/Attestation - Attestation I have personally seen and examined this patient.: Yes I have fully participated in the care of the patient.: Yes I have reviewed all pertinent clinical information, including history, physical exam and plan: Yes Notes (Text): 12/16/16 08:47 Medical record note made by the resident after discussion with my direction and input after the patient was personally seen and examined by me. I have reviewed the chart and agree that the record reflects my personal performance of history, physical, data review and course for the patient that I have planned.
[2016-11-22] MEDS: Nystatin 100,000 Units/gm Topical Pow(15 gm) TOP SCH (10:34)
[2016-11-22] MEDS: oxyCODONE 20 mg Immediate Release Tab PO SCH ×2 (10:39→14:30)
--- NOTE | 2016-11-22 16:51 | PN ---
DATE: 11/22/2016 A 46-year-old diabetic male seen at bedside for continued evaluation and management of left fifth ray resection secondary to osteomyelitis of the fifth toe and fifth metatarsal. The patient has been af ebrile and is not reporting any new complaints. The patient's surgical pathology report revealed acu te osteomyelitis of the most proximal resected metatarsal bone, thereby indicating he will need 4-6 w eeks of IV antibiotics. However, there is a conundrum as patient does not have insurance and is at t his point not eligible for [facility] care, so we are trying to get patient covered for [facility] [place] if that is at all feasible. VITAL SIGNS: Reveal a temperature of 97.8, pulse rate of 68, blood pressure of 135/85, respiratory r ate of 20. LABORATORY FINDINGS: Reveal a white count of 7.1, hemoglobin 11.9, hematocrit of 36.7, platelet coun t of 308. OBJECTIVE: Palpable pedal pulses noted bilaterally. Sutures and incision site are well coapted with no signs of dehiscence at the dorsal aspect of the left lateral foot. There is a full thickness ulc eration that is closing on the plantar aspect of the foot, which does show some drainage. The draina ge is serous, no purulence. There is still noted to be minimal edema and erythema of the forefoot. ASSESSMENT: Acute osteomyelitis of the left foot, status post left fifth ray amputation on a noncomp liant diabetic male with severe peripheral neuropathy. PLAN OF TREATMENT: We will continue with IV antibiotics as per infectious disease and await results as to coverage for antibiotics given the fact that the patient does not have insurance and kayy ca re is questionable at this point. We will continue using the wedge shoe for offloading. He was told to use crutches. His wound was flushed. The plantar aspect of his wound today was flushed with nor mal sterile saline. A small amount of packing was applied and a dry sterile dressing was also applie d. The patient will be seen and followed daily and we will await the outcome as to his 4-6 week cour se of IV antibiotics. Ulices Jordan DPM cc: [id number] TT: 11/22/2016 16:51:02 Confirmation # [id number] Dictation # [id number]
[2016-11-22 17:15] VITALS: BP 112/73; PULSE 73; RESP 18; TEMP 97.9; O2SAT 97
--- NOTE | 2016-11-23 09:25 | CP.PCM.DIS ---
<Carole Fernando - Last Filed: 11/23/16 12:46> Provider - Provider Date of Admission: 11/11/16 00:18 Attending physician: Hayder Butts MD Primary care physician: Dr Butts Consults: Superintendent Transportation IR ID Time Spent in preparation of Discharge (in minutes): 50 Diagnosis - Discharge Diagnosis (1) Osteomyelitis due to type 2 diabetes mellitus Status: Acute (2) Diabetes Status: Chronic (3) Diabetic infection of right foot Status: Acute (4) Puncture wound of foot Status: Acute (5) Amputated toe of left foot Status: Acute (6) Foot ulcer due to secondary DM Status: Acute Hospital Course - Lab Results Lab Results: Micro Results 11/15/16 18:00 Other: Please Indicate Gram Stain - Final 11/15/16 18:00 Other: Please Indicate Anaerobic Culture - Final NO ANAEROBES ISOLATED. 11/15/16 18:00 Other: Please Indicate Wound Culture - Final No growth. 11/15/16 18:00 Other: Please Indicate Gram Stain - Final 11/15/16 18:00 Other: Please Indicate Anaerobic Culture - Final NO ANAEROBES ISOLATED. 11/15/16 18:00 Other: Please Indicate Wound Culture - Final Coagulase Neg Staphylococcus 11/13/16 18:25 Foot - Left Gram Stain - Final 11/13/16 18:25 Foot - Left Wound Culture - Final Coagulase Neg Staphylococcus 11/11/16 06:30 Blood Blood Culture - Final NO GROWTH AFTER 5 DAYS 11/11/16 06:30 Blood Gram Stain - Final TEST NOT PERFORMED 11/11/16 06:30 Blood Blood Culture - Final NO GROWTH AFTER 5 DAYS 11/11/16 06:30 Blood Gram Stain - Final TEST NOT PERFORMED 11/12/16 12:00 Foot - Left Gram Stain - Final 11/12/16 12:00 Foot - Left Wound Culture - Final Coagulase Neg Staphylococcus 11/11/16 12:00 Foot - Left Gram Stain - Final 11/11/16 12:00 Foot - Left Wound Culture - Final Staphylococcus Sp Coag Neg 11/11/16 00:30 Foot - Left Gram Stain - Final 11/11/16 00:30 Foot - Left Wound Culture - Final Staphylococcus Sp Coag Neg Most Recent Lab Values WBC 7.1 10^3/ul (4.5-11.0) 11/21/16 05:00 RBC 4.31 10^6/uL (3.5-6.1) 11/21/16 05:00 Hgb 11.9 gm/dL (14.0-18.0) L 11/21/16 05:00 Hct 36.7 % (42.0-52.0) L 11/21/16 05:00 MCV 85.2 fL (80.0-105.0) 11/21/16 05:00 MCH 27.6 pg (25.0-35.0) 11/21/16 05:00 MCHC 32.4 g/dl (31.0-37.0) 11/21/16 05:00 RDW 13.3 % (11.5-14.5) 11/21/16 05:00 Plt Count 308 10^3/uL (120.0-450.0) 11/21/16 05:00 MPV 9.6 fl (7.0-11.0) 11/21/16 05:00 Gran % 55.3 % (50.0-68.0) 11/21/16 05:00 Lymph % (Auto) 30.4 % (22.0-35.0) 11/21/16 05:00 [place] % (Auto) 12.3 % (1.0-6.0) H 11/21/16 05:00 Eos % (Auto) 1.6 % (1.5-5.0) 11/21/16 05:00 Baso % (Auto) 0.4 % (0.0-3.0) 11/21/16 05:00 Gran # 3.90 (1.4-6.5) 11/21/16 05:00 Lymph # 2.1 (1.2-3.4) 11/21/16 05:00 [place] # 0.9 (0.1-0.6) H 11/21/16 05:00 Eos # 0.1 (0.0-0.7) 11/21/16 05:00 Baso # 0.03 K/mm3 (0.0-2.0) 11/21/16 05:00 ESR 11 mm/hr (0.0-15.0) 11/11/16 12:30 APTT 31.3 Seconds (23.7-30.8) H 11/11/16 07:45 Sodium 134 mmol/L (132-148) 11/21/16 05:00 Potassium 4.2 mmol/L (3.6-5.0) 11/21/16 05:00 Chloride 95 mmol/L (98-107) L 11/21/16 05:00 Carbon Dioxide 29 mmol/L (21-33) 11/21/16 05:00 Anion Gap 14 (10-20) 11/21/16 05:00 BUN 20 mg/dL (7-21) 11/21/16 05:00 Creatinine 0.7 mg/dL (0.5-1.4) 11/21/16 05:00 Est GFR ( Amer) > 60 11/21/16 05:00 Est GFR (Non-Af Amer) > 60 11/21/16 05:00 POC Glucose (mg/dL) 146 mg/dL (65-110) H 11/14/16 21:32 Random Glucose 227 mg/dL (70-110) H 11/21/16 05:00 Calcium 9.1 mg/dL (8.4-10.5) 11/21/16 05:00 Phosphorus 4.1 mg/dL (2.5-4.5) 11/11/16 07:45 Magnesium 2.0 mg/dL (1.7-2.2) 11/15/16 07:00 Total Bilirubin 0.6 mg/dL (0.2-1.3) 11/21/16 05:00 AST 25 U/L (15-59) 11/21/16 05:00 ALT 48 U/L (7-56) 11/21/16 05:00 Alkaline Phosphatase 78 U/L (38-133) 11/21/16 05:00 C-React Prot High Sens > 15.00 mg/L (1.00-3.00) H 11/11/16 12:30 Total Protein 6.9 g/dL (5.8-8.3) 11/21/16 05:00 Albumin 3.6 g/dL (3.0-4.8) 11/21/16 05:00 Globulin 3.3 gm/dL 11/21/16 05:00 Albumin/Globulin Ratio 1.1 (1.1-1.8) 11/21/16 05:00 Vancomycin Trough 7.4 ug/mL (5.0-10.0) 11/21/16 18:35 RPR Nonreactive (NONREACTIVE) 11/11/16 07:45 HIV 1&2 Antibody Screen Negative (NEGATIVE) 11/11/16 07:45 - Hospital Course Hospital Course: Patient is a 46 y/o with PMH of Diabetes Mellitus, diabetic foot ulcers, and chronic back pain whom presented with left distal lower extremity swelling and left lateral foot ulcer after he was sent by his PMD, Dr Loera. On arrival, patient was suspected to have cellulites and ulceration of the left foot r/o osteomyolitis. Basic labs, including blood cultures and wound cultures were sent. 11/11: Foot xray positive for osteomyelitis; pt on zosyn/vanc; ID and podiatry on board. Patient was started on merrem and vanco. IR was consulted, JOSE/PVR with normal result. MRI of the foot revealed osteomyolitis of the metatarsal and proximal phalanx. 11/12: Osteomyolitis of the left 5th metatarsal. Wound culture growing coagulase negative staph. Amputation scheduled. 11/15: Patient underwent left 5th toe amputation. 11/16: POD #1; no acute issues; repeat post amputation wound culture pending. 11/18: POD #3; Awaiting wound cultures before discharge. 11/21- Repeat wound culture was still growing coagulase negative staph. Merrem was discontinued by ID, and vanco was resumed. Patient was not a candidate for zyvox due to interaction with cymbalta. Patient required 4 weeks of IV antibiotics as outpatient, however patient doesn't have insurance. 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 Patient to receive Dalvance 1500 mg iv x 1 dose as approved by ID. 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 - Date & Time of H&P Date of H&P: 11/11/16 Time of H&P: 05:23 Discharge Exam - Head Exam Head Exam: ATRAUMATIC, NORMAL INSPECTION, NORMOCEPHALIC - Eye Exam Eye Exam: Normal appearance, PERRL. absent: Scleral icterus Pupil Exam: NORMAL ACCOMODATION - ENT Exam ENT Exam: Mucous Membranes Moist - Neck Exam Neck exam: Normal Inspection - Respiratory Exam Respiratory Exam: Clear to PA & Lateral, NORMAL BREATHING PATTERN, UNREMARKABLE. absent: Rales, Rhonchi, Wheezes, Respiratory Distress, Stridor - Cardiovascular Exam Cardiovascular Exam: REGULAR RHYTHM, RRR, +S1, +S2. absent: Irregular Rhythm, Systolic Murmur - GI/Abdominal Exam GI & Abdominal Exam: Normal Bowel Sounds, Unremarkable. absent: Distended, Soft , Tenderness - Extremities Exam Additional comments: Left foot with clean dressing, + 2 poplietal artery pulse, warm surrounding skin , no erythema. - Back Exam Back exam: NORMAL INSPECTION - Neurological Exam Neurological exam: Alert, Oriented x3 - Psychiatric Exam Psychiatric exam: Normal Affect, Normal Mood - Skin Skin Exam: Dry, Normal Color Discharge Plan - Follow Up Plan Condition: STABLE Disposition: HOME/ ROUTINE Patient education suggested?: Yes Instructions: Dalbavancin (By injection), Heart Healthy Diet (DC), Diabetic Foot Care (DC), Diabetes Mellitus Type 2 in Adults (DC) Additional Instructions: [place] tomorrow November 23 at 9:00 am for Outpatient Clinic to get IV infusion. First dose of Dalvance 1,500 mg IV will be administered at the Infusion clinic at 11:00 am. Referrals: [facility] [Provider Group] <Villa Loera - Last Filed: 11/25/16 09:19> Provider - Provider Date of Admission: 11/11/16 00:18 Attending physician: Hayder Butts MD [place] Hospital Course - Lab Results Lab Results: Micro Results 11/15/16 18:00 Other: Please Indicate Gram Stain - Final 11/15/16 18:00 Other: Please Indicate Anaerobic Culture - Final NO ANAEROBES ISOLATED. 11/15/16 18:00 Other: Please Indicate Wound Culture - Final No growth. 11/15/16 18:00 Other: Please Indicate Gram Stain - Final 11/15/16 18:00 Other: Please Indicate Anaerobic Culture - Final NO ANAEROBES ISOLATED. 11/15/16 18:00 Other: Please Indicate Wound Culture - Final Coagulase Neg Staphylococcus 11/13/16 18:25 Foot - Left Gram Stain - Final 11/13/16 18:25 Foot - Left Wound Culture - Final Coagulase Neg Staphylococcus 11/11/16 06:30 Blood Blood Culture - Final NO GROWTH AFTER 5 DAYS 11/11/16 06:30 Blood Gram Stain - Final TEST NOT PERFORMED 11/11/16 06:30 Blood Blood Culture - Final NO GROWTH AFTER 5 DAYS 11/11/16 06:30 Blood Gram Stain - Final TEST NOT PERFORMED 11/12/16 12:00 Foot - Left Gram Stain - Final 11/12/16 12:00 Foot - Left Wound Culture - Final Coagulase Neg Staphylococcus 11/11/16 12:00 Foot - Left Gram Stain - Final 11/11/16 12:00 Foot - Left Wound Culture - Final Staphylococcus Sp Coag Neg 11/11/16 00:30 Foot - Left Gram Stain - Final 11/11/16 00:30 Foot - Left Wound Culture - Final Staphylococcus Sp Coag Neg Most Recent Lab Values WBC 7.1 10^3/ul (4.5-11.0) 11/21/16 05:00 RBC 4.31 10^6/uL (3.5-6.1) 11/21/16 05:00 Hgb 11.9 gm/dL (14.0-18.0) L 11/21/16 05:00 Hct 36.7 % (42.0-52.0) L 11/21/16 05:00 MCV 85.2 fL (80.0-105.0) 11/21/16 05:00 MCH 27.6 pg (25.0-35.0) 11/21/16 05:00 MCHC 32.4 g/dl (31.0-37.0) 11/21/16 05:00 RDW 13.3 % (11.5-14.5) 11/21/16 05:00 Plt Count 308 10^3/uL (120.0-450.0) 11/21/16 05:00 MPV 9.6 fl (7.0-11.0) 11/21/16 05:00 Gran % 55.3 % (50.0-68.0) 11/21/16 05:00 Lymph % (Auto) 30.4 % (22.0-35.0) 11/21/16 05:00 [place] % (Auto) 12.3 % (1.0-6.0) H 11/21/16 05:00 Eos % (Auto) 1.6 % (1.5-5.0) 11/21/16 05:00 Baso % (Auto) 0.4 % (0.0-3.0) 11/21/16 05:00 Gran # 3.90 (1.4-6.5) 11/21/16 05:00 Lymph # 2.1 (1.2-3.4) 11/21/16 05:00 [place] # 0.9 (0.1-0.6) H 11/21/16 05:00 Eos # 0.1 (0.0-0.7) 11/21/16 05:00 Baso # 0.03 K/mm3 (0.0-2.0) 11/21/16 05:00 ESR 11 mm/hr (0.0-15.0) 11/11/16 12:30 APTT 31.3 Seconds (23.7-30.8) H 11/11/16 07:45 Sodium 134 mmol/L (132-148) 11/21/16 05:00 Potassium 4.2 mmol/L (3.6-5.0) 11/21/16 05:00 Chloride 95 mmol/L (98-107) L 11/21/16 05:00 Carbon Dioxide 29 mmol/L (21-33) 11/21/16 05:00 Anion Gap 14 (10-20) 11/21/16 05:00 BUN 20 mg/dL (7-21) 11/21/16 05:00 Creatinine 0.7 mg/dL (0.5-1.4) 11/21/16 05:00 Est GFR ( Amer) > 60 11/21/16 05:00 Est GFR (Non-Af Amer) > 60 11/21/16 05:00 POC Glucose (mg/dL) 146 mg/dL (65-110) H 11/14/16 21:32 Random Glucose 227 mg/dL (70-110) H 11/21/16 05:00 Calcium 9.1 mg/dL (8.4-10.5) 11/21/16 05:00 Phosphorus 4.1 mg/dL (2.5-4.5) 11/11/16 07:45 Magnesium 2.0 mg/dL (1.7-2.2) 11/15/16 07:00 Total Bilirubin 0.6 mg/dL (0.2-1.3) 11/21/16 05:00 AST 25 U/L (15-59) 11/21/16 05:00 ALT 48 U/L (7-56) 11/21/16 05:00 Alkaline Phosphatase 78 U/L (38-133) 11/21/16 05:00 C-React Prot High Sens > 15.00 mg/L (1.00-3.00) H 11/11/16 12:30 Total Protein 6.9 g/dL (5.8-8.3) 11/21/16 05:00 Albumin 3.6 g/dL (3.0-4.8) 11/21/16 05:00 Globulin 3.3 gm/dL 11/21/16 05:00 Albumin/Globulin Ratio 1.1 (1.1-1.8) 11/21/16 05:00 Vancomycin Trough 7.4 ug/mL (5.0-10.0) 11/21/16 18:35 RPR Nonreactive (NONREACTIVE) 11/11/16 07:45 HIV 1&2 Antibody Screen Negative (NEGATIVE) 11/11/16 07:45 Attending/Attestation - Attestation I have personally seen and examined this patient.: Yes I have fully participated in the care of the patient.: Yes I have reviewed all pertinent clinical information, including history, physical exam and plan: Yes Notes (Text): 11/25/16 09:19 Medical record note made by the resident after discussion with my direction and input after the patient was personally seen and examined by me. I have reviewed the chart and agree that the record accurately reflects by personal performance of the history, physical exam, data review, and medical decision-making, in the course for the patient. I have also personally directed the plan of care.
== END 2016-11-22 18:29 | disposition home or self-care (01) | DRG 629 ==
LOC: ED 22:10 → ERH 11-11 00:18 → 5RNO 11-11 04:29
PROVIDERS: ADMIT Family Medicine; ATTEND Internal Medicine
PROC: 0QBP0ZZ Excision of Left Metatarsal, Open Approach (ICD-10-PCS; principal; 2016-11-15 16:00)
DX: E11.69 Type 2 diabetes mellitus with other specified complication (principal); M86.172 Other acute osteomyelitis, left ankle and foot; E11.621 Type 2 diabetes mellitus with foot ulcer; E11.42 Type 2 diabetes mellitus with diabetic polyneuropathy; L03.116 Cellulitis of left lower limb; E66.01 Morbid (severe) obesity due to excess calories; E11.65 Type 2 diabetes mellitus with hyperglycemia; L97.529 Non-pressure chronic ulcer of other part of left foot with unspecified severity; S91.339A Puncture wound without foreign body, unspecified foot, initial encounter; F17.210 Nicotine dependence, cigarettes, uncomplicated; I10 Essential (primary) hypertension; Z68.35 Body mass index [BMI] 35.0-35.9, adult; Z79.84 Long term (current) use of oral hypoglycemic drugs; Z83.3 Family history of diabetes mellitus; Z89.422 Acquired absence of other left toe(s); Z91.19 Patient's noncompliance with other medical treatment and regimen; R40.2412 Glasgow coma scale score 13-15, at arrival to emergency department; M54.9 Dorsalgia, unspecified; M19.90 Unspecified osteoarthritis, unspecified site; Z87.81 Personal history of (healed) traumatic fracture; F32.9 Major depressive disorder, single episode, unspecified; F06.30 Mood disorder due to known physiological condition, unspecified; F41.9 Anxiety disorder, unspecified; G47.00 Insomnia, unspecified; B95.7 Other staphylococcus as the cause of diseases classified elsewhere; D64.9 Anemia, unspecified; X58.XXXA Exposure to other specified factors, initial encounter